=== PATIENT | male | born 1955 | race Caucasian/White ===

== ENCOUNTER → 2023-04-21 14:32 | Outpatient (REF) | payer MEDICARE, SELFPAY | LOC: RAD 14:32 | PROVIDERS: ATTENDING PHYSICIAN Internal Medicine Cardiovascular Disease; FAMILY PHYSICIAN Internal Medicine Endocrinology, Diabetes & Metabolism; REFERRING PHYSICIAN Surgery Vascular Surgery | DX: I73.9 Peripheral vascular disease, unspecified (principal); I48.21 Permanent atrial fibrillation | CPT/HCPCS: 93922; 93925 ==

== ENCOUNTER 2023-07-06 06:05 | Day surgery (SDC) | payer MEDICARE, SELFPAY ==
[2023-07-06 07:00] VITALS: BMI 45.8
[2023-07-06 07:29] LABS: Glucose - Point of Care 117 mg/dl (70-99)
[2023-07-06 07:30] VITALS: BP 143/97
[2023-07-06 08:30] VITALS: BP 116/83
[2023-07-06 08:45] VITALS: BP 95/62
[2023-07-06 09:03] VITALS: BP 145/97
[2023-07-06 09:15] LABS: Hematocrit 43.2 % (39.0-52.0); Hemoglobin 14.8 g/dL (13.0-18.0); Mean Corp Hgb Conc. 34.3 g/dL (33.0-37.0); Mean Corpuscular Hgb 28.5 pg (27.0-31.0); Mean Corpuscular Volume 83.1 fL (80.0-94.0); Mean Platelet Volume 10.1 fL (7.4-10.4); Platelet Count 203 10^3/uL (130-400); Red Cell Dist. Width 14.7 % (11.5-14.5); White Blood Cell Count 6.7 10^3/uL (4.8-10.8)
[2023-07-06 10:08] LABS: ALT (SGPT) 23 U/L (0-50); AST (SGOT) 29 U/L (17-59); Albumin 3.7 g/dl (3.5-5.0); Alkaline Phosphatase 104 U/L (38-126); Blood Urea Nitrogen 21 mg/dl (9-20); Calcium 9.5 mg/dl (8.4-10.2); Carbon Dioxide 27 mmol/L (22-30); Chloride 101 mmol/L (98-107); Estimated Creatinine Clearance > 125 ml/min; Glucose 94 mg/dl (70-99); Potassium 3.3 mmol/L (3.5-5.1); Sodium 134 mmol/L (135-145); Total Bilirubin 1.3 mg/dl (0.2-1.3); Total Protein 6.4 g/dl (6.3-8.2); eGFR > 60.00
[2023-07-06 10:28] LABS: CEA 1.09 ng/ml
== END 2023-07-06 09:20 | disposition home or self-care (01) ==
LOC: GI 06:05
PROVIDERS: ATTENDING PHYSICIAN Internal Medicine
DX: Z12.11 Encounter for screening for malignant neoplasm of colon (principal); Z87.19 Personal history of other diseases of the digestive system; D50.9 Iron deficiency anemia, unspecified; K57.30 Diverticulosis of large intestine without perforation or abscess without bleeding
CPT/HCPCS: 45385; 45380; 88305; 80053; 82378; 82962; 85027; 88342

== ENCOUNTER → 2023-07-11 09:33 | Outpatient (REF) | payer MEDICARE, SELFPAY | LOC: HWRAD 09:33 | PROVIDERS: ATTENDING PHYSICIAN Internal Medicine | DX: K63.89 Other specified diseases of intestine (principal) | CPT/HCPCS: 71260; 74177; Q9967 ==

== ENCOUNTER 2023-07-27 06:05 | Inpatient (IN) | payer MEDICARE, SELFPAY ==
[2023-07-22 12:00] VITALS: BP 111/57
[2023-07-25 08:33] VITALS: BMI 45.9
[2023-07-25 10:03] LABS: Hematocrit 46.5 % (39.0-52.0); Hemoglobin 15.4 g/dL (13.0-18.0); Mean Corp Hgb Conc. 33.1 g/dL (33.0-37.0); Mean Corpuscular Hgb 28.3 pg (27.0-31.0); Mean Corpuscular Volume 85.3 fL (80.0-94.0); Mean Platelet Volume 10.5 fL (7.4-10.4); Platelet Count 265 10^3/uL (130-400); Red Blood Cell Count 5.45 10^6/uL (4.70-6.10); Red Cell Dist. Width 15.6 % (11.5-14.5)
[2023-07-25 10:27] LABS: ALT (SGPT) 19 U/L (0-50); AST (SGOT) 25 U/L (17-59); Albumin 3.9 g/dl (3.5-5.0); Alkaline Phosphatase 102 U/L (38-126); Blood Urea Nitrogen 18 mg/dl (9-20); Calcium 9.9 mg/dl (8.4-10.2); Carbon Dioxide 32 mmol/L (22-30); Chloride 101 mmol/L (98-107); Estimated Creatinine Clearance > 125 ml/min; Glucose 88 mg/dl (70-99); Potassium 4.2 mmol/L (3.5-5.1); Sodium 142 mmol/L (135-145); Total Protein 6.8 g/dl (6.3-8.2); eGFR > 60.00
[2023-07-25 10:40] LABS: INR 1.09; PT 13.9 Sec (11.4-14.6)
[2023-07-25 10:41] LABS: APTT 32.9 Sec (23.4-35.0)
[2023-07-25 10:57] LABS: CEA 1.52 ng/ml
[2023-07-25 12:11] LABS: Glycohemoglobin (HgbA1c) 7.3 % (4.0-5.6)
--- NOTE | 2023-07-25 13:50 | PTCARENOTE ---
HGA1C 7.3, Kayla at MD Office made aware.
[2023-07-27] VITALS (16 sets, daily range): BP systolic 133–164; BP diastolic 73–95; BMI 45.9
[2023-07-27 06:49] LABS: Glucose - Point of Care 106 mg/dl (70-99)
[2023-07-27] MEDS: TYLENOL 1000 MG PO (06:55)
[2023-07-27] MEDS: ENTEREG 12 MG PO (06:56)
[2023-07-27] MEDS: NEURONTIN 300 MG PO ×2 (06:57→19:55)
[2023-07-27] MEDS: HEPARIN 5000 UNITS SC (06:59)
[2023-07-27] MEDS: NORMOSOL-R 1000 IV ×2 (06:59→15:41)
[2023-07-27 09:35] LABS: Glucose - Point of Care 152 mg/dl (70-99)
[2023-07-27 11:33] LABS: Glucose - Point of Care 208 mg/dl (70-99)
--- NOTE | 2023-07-27 12:41 | W.IMMPOSTOP ---
Addendum entered and electronically signed by Orlando Mosley MD 07/27/23 15:46:
Of note, there was small volume spillage of feces from a small colotomy in cecum during dissection of cecum off right abdominal wall. For this reason, as well as his DM, will continue Invanz a couple days postop.
Addendum entered and electronically signed by Orlando Mosley MD 07/27/23 12:51:
Updated Ezio patient's son via phone conversation.
Original Note:
Surgical Immed Post Op Note
-
Primary Surgeon: Susan Mosley MD
Assisting Surgeon: KOLTON Bee; KOLTON N[place]
Pre-op Diagnosis: cecal cancer
Post-op Diagnosis: same
Procedure Performed: 1) robotic right colectomy 2) extensive lysis of adhesions 3) primary umbilical hernia repair
Anesthesia Type: general plus local
Specimen / Cultures: right colectomy
Estimated Blood Loss: 100 cc
Complications: no immediate
Operative Findings: 1) significant lower abdominal adhesions 2) cecal mass 3) no obvious metastases
Gomez in bladder.
Will send to med surg and consult hospitalist for medical management.
[2023-07-27 12:55] LABS: Glucose - Point of Care 174 mg/dl (70-99)
[2023-07-27 13:40] LABS: % Basophils 0.2 % (0-2); % Immature Granulocytes 0.5 % (0-0.5); % Lymphocytes 6.4 % (20.5-51.1); % Monocytes 2.4 % (1.7-9.3); % Neutrophils 90.5 % (42.2-75.2); Absolute Immature Granulocytes 0.1 10^3/uL (0-0.05); Absolute Lymphocytes 0.9 10^3/uL (1.2-3.4); Absolute Monocytes 0.3 10^3/uL (0.1-0.6); Absolute Neutrophils 12.9 10^3/uL (1.4-6.5); Hematocrit 42.3 % (39.0-52.0); Hemoglobin 14.5 g/dL (13.0-18.0); Mean Corp Hgb Conc. 34.3 g/dL (33.0-37.0); Mean Corpuscular Hgb 28.5 pg (27.0-31.0); Mean Corpuscular Volume 83.1 fL (80.0-94.0); Mean Platelet Volume 9.7 fL (7.4-10.4); Nucleated Red Blood Cells % 0 % (-); Platelet Count 238 10^3/uL (130-400); Red Blood Cell Count 5.09 10^6/uL (4.70-6.10); Red Cell Dist. Width 15.6 % (11.5-14.5); White Blood Cell Count 14.3 10^3/uL (4.8-10.8)
--- NOTE | 2023-07-27 14:25 | CON.HOSP ---
Family Physician
-
Family Physician: Herb Gold MD
Chief Complaint
-
s/p robotic surgery for cecal cancer
History of Present Illness
Mr. Mat Ferrell is a 67 yo man with hx HTN, anxiety, HLD, afib s/p Watchman procedure, GLORIA on CPAP, with recently diagnosed cecal cancer now s/p robotic right colectomy this morning. We are asked to consult for medical management of chronic
medical conditions.
Medical History
Past Medical History
Past Medical History: Reports Other ( HTN, anxiety, HLD, afib s/p Watchman procedure, GLORIA on CPAP)
Past Surgical History: Reports Other (watchman procedure; robotic right colectomy 07/27/23)
Family History
Family History: Reviewed & Not Pertinent
Allergies / Home Medications
Allergies reflects when Allergies were last updated in [facility].
Home Medications with original date entered in [facility]
Allergy/Medication List:
Allergies
Allergy/AdvReac Type Severity Reaction Status Date / Time
rivaroxaban [From Xarelto] Allergy bleeding Verified 07/27/23 06:36
Home Medications
hydralazine 50 mg tablet 50 mg PO BID 03/24/17
tadalafil 20 mg tablet (Cialis) 5 mg PO PRN PRN . 03/24/17
Men's 50 Plus Multivitamin 1 tab PO DAILY 07/06/23
alcaftadine 0.25 % eye drops (Lastacaft Once Daily Relief) 1 drp ophthalmic (eye) DAILY 07/06/23
alprazolam 1 mg tablet (Xanax) 2 mg PO BID 07/06/23
aspirin 81 mg chewable tablet 81 mg PO DAILY 07/06/23
atorvastatin 40 mg tablet (Lipitor) 40 mg PO DAILY 07/06/23
escitalopram oxalate 10 mg tablet (Lexapro) 10 mg PO DAILY 07/06/23
gabapentin 300 mg tablet 300 mg PO BID 07/06/23
pantoprazole 40 mg tablet,delayed release (Protonix) 40 mg PO DAILY 07/06/23
semaglutide 0.25 mg or 0.5 mg (2 mg/3 mL) subcutaneous pen injector (Ozempic) 0.5 mg SC QWEEK 07/06/23
valsartan 320 mg tablet (Diovan) 320 mg PO DAILY 07/06/23
amlodipine 5 mg tablet 5 mg PO DAILY 07/24/23
carvedilol 25 mg tablet 25 mg PO BID 07/24/23
cetirizine 10 mg tablet (Zyrtec) 10 mg PO DAILY 07/24/23
cholecalciferol (vitamin D3) 25 mcg (1,000 unit) tablet (Vitamin D3) 25 mcg PO DAILY 07/24/23
insulin lispro 100 unit/mL subcutaneous cartridge (Humalog U-100 Insulin) 1 sliding scale dose SC DIRECTED 07/24/23
levothyroxine 137 mcg tablet 137 mcg PO DAILY 07/24/23
metronidazole 500 mg tablet 500 mg PO .PER MD PREOP INST 07/24/23
neomycin 500 mg tablet 1 g PO .PER MD PREOP INST 07/24/23
sodium sul 1.479 gram-potas ch 0.188 gram-magnes sul 0.225 gram tablet (Sutab) 1 tab PO .PER MD PREOP INST 07/24/23
vitamin B complex 1 tab PO DAILY 07/24/23
Review of Systems
-
History Source: Patient
A 12 point Review of Systems was completed except as noted: Yes
Physical Exam
Vital Signs
Vital Signs
Temp Pulse Resp BP Pulse Ox
100.1 F 88 17 134/73 97
07/27/23 12:42 07/27/23 13:30 07/27/23 13:30 07/27/23 13:15 07/27/23 13:30
Laboratory Results
-
Laboratory Results
07/27/23 13:33
PT 13.9 Sec (11.4-14.6) 07/25/23 08:29
INR 1.09 07/25/23 08:29
APTT 32.9 Sec (23.4-35.0) 07/25/23 08:
Total Bilirubin 1.0 mg/dl (0.2-1.3) 07/25/23 08:29
AST 25 U/L (17-59) 07/25/23 08:
ALT 19 U/L (0-50) 07/25/23 08:
Alkaline Phosphatase 102 U/L (38-126) 07/25/23 08:29
Data Reviewed
-
Diagnostic Radiology: Report Reviewed by Me
Lab Data: Labs Reviewed
Impression / Plan
-
Mr. Mat Ferrell is a 67 yo man with hx HTN, anxiety, HLD, afib s/p Watchman procedure, GOLRIA on CPAP, with recently diagnosed cecal cancer now s/p robotic right colectomy this morning. We are asked to consult for medical management of chronic
medical conditions.
Cecal Cancer s/p Robotic Right Colectomy
-admitted to surgery service
-plan per CRS
-NPO, IVF
-standing Toradol and morphine PRN pain
DM type I
-patient has insulin pump with him which he will resume now
-will check BGL and patient to correct with pump
-current BGL 170's
HTN
-home regimen: amlodipine 5mg PO QD; Coreg 25mg PO BID; Hydralazine 50mg PO BID; Valsartan 320mg PO QD
-will resume GROUP MANAGING DIRECTOR Coreg and 1/2 dose Hydralazine for now with hold parameters
-monitor BP and resume other meds slowly
Anxiety
-continue GROUP MANAGING DIRECTOR regimen Lexapro daily, Xanax 2mg q 12 PRN
Hypothyroidism
-GROUP MANAGING DIRECTOR Synthroid
GERD
-on oral protonix at home, continue IV here
Obesity
-patient is on Ozempic weekly at home which he has held for several weeks
DVT PPx SCD
[2023-07-27] MEDS: TORADOL 15 MG IV ×2 (14:37→19:55)
[2023-07-27 14:39] LABS: Chloride 101 mmol/L (98-107)
[2023-07-27 14:41] LABS: Blood Urea Nitrogen 22 mg/dl (9-20); Calcium 8.9 mg/dl (8.4-10.2); Carbon Dioxide 24 mmol/L (22-30); Estimated Creatinine Clearance 113 ml/min; Glucose 201 mg/dl (70-99); Magnesium 1.9 mg/dl (1.6-2.3); Potassium 4.3 mmol/L (3.5-5.1); Sodium 137 mmol/L (135-145); eGFR > 60.00
[2023-07-27] MEDS: TYLENOL PO (16:02)
[2023-07-27] MEDS: TORADOL IV (16:15)
[2023-07-27] MEDS: TYLENOL 650 MG PO ×3 (16:31→23:22)
[2023-07-27 17:13] LABS: Glucose - Point of Care 208 mg/dl (70-99)
[2023-07-27] MEDS: PATIENT'S OWN INSULIN PUMP 2 UNITS SC (18:16)
[2023-07-27] MEDS: APRESOLINE 25 MG PO (19:55)
[2023-07-27] MEDS: COREG 25 MG PO (19:55)
[2023-07-27] MEDS: XANAX 2 MG PO (19:59)
[2023-07-27 21:35] LABS: Glucose - Point of Care 166 mg/dl (70-99)
[2023-07-27] MEDS: PATIENT'S OWN INSULIN PUMP SC (23:23)
[2023-07-28] VITALS (7 sets, daily range): BP systolic 111–146; BP diastolic 57–85; PULSE 75; O2SAT 96
[2023-07-28] MEDS: NORMOSOL-R 1000 IV ×2 (01:06→10:13)
[2023-07-28] MEDS: TORADOL 15 MG IV ×4 (01:06→20:54)
[2023-07-28] MEDS: SYNTHROID 137 MCG PO (05:30)
[2023-07-28] MEDS: TYLENOL 650 MG PO ×5 (05:30→20:54)
[2023-07-28 05:37] LABS: % Basophils 0.2 % (0-2); % Immature Granulocytes 0.3 % (0-0.5); % Lymphocytes 6.4 % (20.5-51.1); % Monocytes 9.8 % (1.7-9.3); % Neutrophils 83.3 % (42.2-75.2); Absolute Lymphocytes 0.8 10^3/uL (1.2-3.4); Absolute Monocytes 1.2 10^3/uL (0.1-0.6); Absolute Neutrophils 10.1 10^3/uL (1.4-6.5); Hematocrit 40.3 % (39.0-52.0); Hemoglobin 14.3 g/dL (13.0-18.0); Mean Corp Hgb Conc. 35.5 g/dL (33.0-37.0); Mean Corpuscular Hgb 29.1 pg (27.0-31.0); Mean Corpuscular Volume 81.9 fL (80.0-94.0); Nucleated Red Blood Cells % 0 % (-); Platelet Count 224 10^3/uL (130-400); Red Blood Cell Count 4.92 10^6/uL (4.70-6.10); Red Cell Dist. Width 15.3 % (11.5-14.5); White Blood Cell Count 12.2 10^3/uL (4.8-10.8)
[2023-07-28 06:02] LABS: Blood Urea Nitrogen 26 mg/dl (9-20); Carbon Dioxide 25 mmol/L (22-30); Chloride 103 mmol/L (98-107); Estimated Creatinine Clearance > 125 ml/min; Glucose 158 mg/dl (70-99); Magnesium 2.2 mg/dl (1.6-2.3); Potassium 4.4 mmol/L (3.5-5.1); Sodium 136 mmol/L (135-145); eGFR > 60.00
[2023-07-28 06:44] LABS: Hepatitis C Antibody Negative (Negative)
[2023-07-28] MEDS: PATIENT'S OWN INSULIN PUMP SC ×2 (07:45→17:34)
[2023-07-28 07:52] LABS: Glucose - Point of Care 152 mg/dl (70-99)
--- NOTE | 2023-07-28 08:12 | PN.DE.MGMTRT ---
Insulin Management
- -
07/28/2023: Diabetes Management Consult:
67 year old male with PMH: HTN, Anxiety, HLD, A-Fib s/p Watchman procedure, GLORIA on CPAP, T1DM, recently dx with cecal cancer.
Pt is POD #1 s/p 1) robotic right colectomy for cecal cancer, 2) extensive lysis of adhesions, 3) primary umbilical hernia repair.
We are asked to consult for management of insulin pump. Pt Routinely sees Endo Dr. Herb Gold for diabetes management. He uses Omnipod with Dexcom G6 CGM, Humalog insulin and Ozempic 0.5mg every Monday. States GLP1 was started on 05/28/2023 for
weight loss mgt in order for him to lose weight and have knee replacement surgery. He has lost ~10lbs since starting it but had to hold it on 07/15 in prep for this colorectal surgery.
Current A1C 7.3%, Cr 0.6, eGFR>60. His Pod is set in Automated mood, he uses a correction factor of 1:15 with a target of 120. 24hr Total basal is 60 units
Pt awake, A/O x3, sitting up in bed, offers no complaints, able to discuss diabetes management
He states that his sugars have been up and down and that he would like to see then in the 150s range.
His recent POC glucose was 158 fasting. He states that he does not uses carb rations and just comes up with how much insulin to adm at meal times based on what meal he is having. So for a blood sugar of 150s, he would not administer any bolus at
home because he is afraid of his sugar dropping. His diet has been advanced to clears and is in the process of ordering breakfast.
Will make no changes to current insulin pump settings.
Discussed w/pt process of documenting all his insulin boluses at meal times on the pump worksheet.
Pod is due to be changed tomorrow and CGM on monday.
Diabetes History
- -
Type of Diabetes: 1
Pre-Admission Diabetes Regimen
07/27/23 07/27/23 07/28/23
13:33 14:06 05:17
Creatinine Cancelled 0.9 0.6 L
Lab Results
Hemoglobin A1c 7.3 % (4.0-5.6) H 07/25/23 08:29
Insulin Pump Settings
IP Diabetes Regimen
07/27/23 07/27/23 07/27/23
09:33 11:32 12:53
Glucose
POC Glucose 152 H 208 H 174 H
07/27/23 07/27/23 07/27/23
13:33 14:06 17:11
Glucose Cancelled 201 H
POC Glucose 208 H
07/27/23 07/28/23 07/28/23
21:34 05:17 07:51
Glucose 158 H
POC Glucose 166 H 152 H
Patient Education
[2023-07-28] MEDS: PROTONIX IV 40 MG IV (08:57)
[2023-07-28] MEDS: NSS (PRESERVATIVE FREE) 10 ML IV (08:57)
[2023-07-28] MEDS: APRESOLINE 25 MG PO ×2 (08:57→20:53)
[2023-07-28] MEDS: THERAGRAN 1 TABLET PO (09:00)
[2023-07-28] MEDS: NEURONTIN 300 MG PO ×2 (09:00→21:05)
[2023-07-28] MEDS: LOW STRENGTH ASPIRIN 81 MG PO (09:00)
[2023-07-28] MEDS: ZYRTEC 10 MG PO (09:00)
[2023-07-28] MEDS: ENTEREG 12 MG PO ×2 (09:00→21:04)
[2023-07-28] MEDS: LEXAPRO 10 MG PO (09:00)
[2023-07-28] MEDS: INVANZ 60 MG IV (09:00)
[2023-07-28] MEDS: LIPITOR 40 MG PO (09:00)
[2023-07-28] MEDS: COREG 25 MG PO ×2 (09:02→20:52)
[2023-07-28] MEDS: XANAX 2 MG PO ×2 (09:09→20:55)
--- NOTE | 2023-07-28 09:18 | W.PN.HOSP.TC ---
Today's Communication/Plan
-
see plan
Assessment / Plan
Assessment / Plan
Mr. Mat Ferrell is a 67 yo man with hx HTN, anxiety, HLD, afib s/p Watchman procedure, GLORIA on CPAP, with recently diagnosed cecal cancer now s/p robotic right colectomy this morning. We are asked to consult for medical management of HTN and
DM1.
Cecal Cancer s/p Robotic Right Colectomy
-admitted to surgery service
-plan per CRS
-advancign to clears
-standing Toradol and morphine PRN pain
DM type I
-patient has resumed own insulin pump which he is managing
-will check BGL and patient to correct with pump
HTN
-home regimen: amlodipine 5mg PO QD; Coreg 25mg PO BID; Hydralazine 50mg PO BID; Valsartan 320mg PO QD
-will resume GLOVE PAIRER Coreg and 1/2 dose Hydralazine for now with hold parameters
-monitor BP and resume other meds slowly - likely resume more this afternoon
Anxiety
-continue GLOVE PAIRER regimen Lexapro daily, Xanax 2mg q 12 PRN
Hypothyroidism
-GLOVE PAIRER Synthroid
GERD
-on oral protonix at home, continue IV here
Obesity
-patient is on Ozempic weekly at home which he has held for several weeks
DVT PPx SCD
Anticipated Discharge: 24 - 48 hours
Subjective/Interval History
-
Date of Service: July 28, 2023
feeling well this morning
pain controlled
Objective Data
-
Labs:
Laboratory Results
07/28/23
05:17
WBC 12.2 H
Hgb 14.3
Hct 40.3
Plt Count 224
Sodium 136
Potassium 4.4
Chloride 103
Carbon Dioxide 25
BUN 26 H
Creatinine 0.6 L
Glucose 158 H
Calcium 9.0
Vital Signs:
Vital Signs
Temp Pulse Resp BP Pulse Ox
97.4 F 78 18 120/76 96
07/28/23 07:39 07/28/23 09:02 07/28/23 07:39 07/28/23 09:02 07/28/23 07:39
I&O
07/27/23 07/28/23 07/29/23
06:59 06:59 06:59
Intake Total 1400 / 1400
Output Total 1275 / 1275
Balance 125 / 125
Review of Systems
-
History Source: Patient
All other systems: Reviewed and negative
Physical Exam
-
General: Obese
HEENT: PERRLA
Respiratory: Clear to Auscultation; Negative Wheezes
Cardiac: Regular Rhythm and S1/S2
GI: Other (incisions c/d/i)
Musculoskeletal: No Edema
Skin: Warm and Dry; Negative Rash
Neuro: AO x 3
Psych: Calm
Data Reviewed
-
Diagnostic Radiology: Report Reviewed by me
Labs: Labs Reviewed by me
[2023-07-28 09:38] LABS: Glycohemoglobin (HgbA1c) 7.4 % (4.0-5.6)
--- NOTE | 2023-07-28 09:51 | W.PN.CRS1 ---
Addendum entered and electronically signed by Orlando Mosley MD 07/28/23 16:45:
Also of note,
Small colotomy in cecum is unexpected but is NOT a complication of the surgery. It occurred due to dense adhesions likely related to history of perforated appendicitis as a youth. There was no evidence for perotinitis.
Original Note:
Today's Communication / Plan
-
clears
lovenox
d/c thomson
continue invanz
Assessment/Plan
-
POD#1 1) robotic right colectomy 2) extensive lysis of adhesions 3) primary umbilical hernia repair
1. Vitals and labs normal.
2. TEDs/SCDS, add lovenox for DVT prophylaxis.
3. OOB with PT.
4. Pain control: Tylenol/Toradol standing, Morphine PRN.
5. OR pathology pending.
6. Discontinue thomson.
7. Continue Invanz through Monday, 07/29 given some OR 'spillage'.
8. Advance diet to clears. D/C IVFs when tolerating po.
9. Appreciate hospitalist.
Subjective Data
Procedure
07/27/2023- 1) robotic right colectomy 2) extensive lysis of adhesions 3) primary umbilical hernia repair
Subjective Data
Date of Service: July 28, 2023
Patient states he has some gas pains but no flatus yet. He has no nausea or vomiting. His pain is controlled. He is very hungry.
Objective Data
-
Vital Signs
Temp Pulse Resp BP Pulse Ox
97.4 F 78 18 120/76 96
07/28/23 07:39 07/28/23 09:02 07/28/23 07:39 07/28/23 09:02 07/28/23 07:39
Intake & Output
07/27/23 07/28/23 07/29/23
06:59 06:59 06:59
Intake Total 1400 / 1400
Output Total 1275 / 1275
Balance 125 / 125
Intake:
IV fluids (Total) 1400 / 1400
normosol 200 / 200
Output:
Urine, Thomson 625 / 625
Urine, Voided 650 / 650
Lab Results
07/28/23 05:17
07/28/23 05:17
Physical Exam
-
General: No Acute Distress and AOx3
Abdomen: Soft, Non Distended and Non Tender
Skin: Warm and Dry
Incision: Clear, Dry, Intact
--- NOTE | 2023-07-28 10:37 | PN.CDI ---
CDI
- -
CDI:
Physician Documentation Request
Admit Date: 07/27/23 06:05
Dear Doctor Dimitri,
Please review the following and provide your response in the progress notes.
Clinical Indicators:
Surgical Immediate Post Op, 07/26
#Of note, there was small volume spillage of feces from a
#...small colotomy in cecum during dissection of cecum off right abdominal wall.
#For this reason, as well as his DM, will continue Invanz a couple days postop.
#Procedure Performed: 1) robotic right colectomy 2) extensive lysis of adhesions
#...3) primary umbilical hernia repair
Please clarify the following:
Small colotomy in cecum is a complication of the surgery
Small colotomy in cecum is unexpected but is NOT a complication of the surgery
Small colotomy is an expected occurrence and is not a complication of surgery
Small colotomy in cecum is inherent to/unavoidable during the surgery and is not a complication
Other(please specify)
Use of terms such as suspected, likely, concern for, or probable (associated with a specific diagnosis that is being evaluated, monitored, or treated as if it exists) are acceptable and can be coded in the inpatient setting, when documented at the
time of discharge.
Thank you,
Mariel Jordan RN BSN CCDS
CDI Specialist
please contact via tiger text
Please use your independent medical judgment in providing your response.
--- NOTE | 2023-07-28 10:41 | PN.CDI ---
CDI
- -
CDI:
Physician Documentation Request
Admit Date: 07/27/23 06:05
Dear Doctor Dimitri,
Please review the following and provide your response in the progress notes.
Clinical Indicators:
Documentation in the medical record includes administration of Invanz.
Surgical Immediate Post Op, 07/26
#Of note, there was small volume spillage of feces from a
#...small colotomy in cecum during dissection of cecum off right abdominal wall.
#For this reason, as well as his DM, will continue Invanz a couple days postop.
#Procedure Performed: 1) robotic right colectomy 2) extensive lysis of adhesions
#...3) primary umbilical hernia repair
PN, 07/27
#continue invanz
#7. Continue Invanz through Monday, 07/29 given some OR 'spillage'.
Laboratory Tests
07/27/23 07/28/23
13:33 05:17
WBC 14.3 H 12.2 H
Based on the above and your clinical assessment, please clarify in the progress notes, the appropriate diagnosis, if significant, that supports the above abnormalities and additional evaluation, monitoring and/or treatment rendered:
Peritonitis
Other(please clarify)
Use of terms such as suspected, likely, concern for, or probable (associated with a specific diagnosis that is being evaluated, monitored, or treated as if it exists) are acceptable and can be coded in the inpatient setting, when documented at the
time of discharge.
Thank you,
Mariel Jordan MANAGER RESEARCH DEVELOPMENT CCDS
CDI Specialist
please contact via tiger text
Please use your independent medical judgment in providing your response.
--- NOTE | 2023-07-28 10:47 | CM ---
Reviewed the chart notes and spoke with the patient at the bedside. The patient resides alone in a first floor apartment with one small step to enter. The patient reports on DME is a CPAP. The patient reports no VN or SNF in the past. The
patient confirmed her pharmacy of choice is the [facility] [address] [facility]. CM continues to be available to patient/family and is monitoring medical plan for needs at discharge.
Plan: Discharge to home when medically stable. Anticipates on needs.
--- NOTE | 2023-07-28 11:47 | RESPNOTE ---
Cpap ordered for patient- No machine bedside patient informed that Dr Mosley told him not to use while here at the hospital. Reached out to Chiquita Kwan who confirmed patient is not to wear 'due to air going into the stomach and potential
vomiting.' Ale [facility] aware
[2023-07-28 12:39] LABS: Glucose - Point of Care 206 mg/dl (70-99)
[2023-07-28] MEDS: PATIENT'S OWN INSULIN PUMP 3.5 UNITS SC (12:39)
[2023-07-28] MEDS: FLUSH (NSS) 2 FLUSH IV (14:44)
[2023-07-28 15:58] LABS: Glucose - Point of Care 163 mg/dl (70-99)
[2023-07-28] MEDS: PT'S OWN INSULIN PUMP - HumaLOG 3.5 UNIT SC (17:13)
[2023-07-28] MEDS: NORMOSOL-R IV (17:28)
[2023-07-28] MEDS: LOVENOX 40 MG SC (17:52)
[2023-07-28 21:25] LABS: Glucose - Point of Care 106 mg/dl (70-99)
[2023-07-28] MEDS: PT'S OWN INSULIN PUMP - HumaLOG SC (21:51)
[2023-07-29] MEDS: TYLENOL PO ×2 (00:45→05:17)
[2023-07-29] MEDS: TORADOL 15 MG IV ×4 (02:35→20:31)
[2023-07-29] MEDS: NORMOSOL-R IV (04:05)
[2023-07-29 06:00] VITALS: BMI 45.5
[2023-07-29] MEDS: SYNTHROID 137 MCG PO (06:13)
[2023-07-29 07:00] VITALS: BP 137/97
[2023-07-29] MEDS: INVANZ 60 MG IV (08:06)
[2023-07-29] MEDS: NSS (PRESERVATIVE FREE) 10 ML IV (08:07)
[2023-07-29] MEDS: PROTONIX IV 40 MG IV (08:07)
[2023-07-29] MEDS: APRESOLINE 25 MG PO ×2 (08:09→20:33)
[2023-07-29] MEDS: LEXAPRO 10 MG PO (08:10)
[2023-07-29] MEDS: LOW STRENGTH ASPIRIN 81 MG PO (08:10)
[2023-07-29] MEDS: THERAGRAN 1 TABLET PO (08:10)
[2023-07-29] MEDS: COREG 25 MG PO ×2 (08:10→20:38)
[2023-07-29] MEDS: ENTEREG 12 MG PO ×2 (08:10→20:32)
[2023-07-29] MEDS: NEURONTIN 300 MG PO ×2 (08:10→20:32)
[2023-07-29] MEDS: LIPITOR 40 MG PO (08:10)
[2023-07-29] MEDS: ZYRTEC 10 MG PO (08:11)
[2023-07-29] MEDS: TYLENOL 650 MG PO ×4 (08:11→20:31)
[2023-07-29] MEDS: PT'S OWN INSULIN PUMP - HumaLOG 3.5 UNIT SC (08:15)
[2023-07-29 08:16] LABS: Glucose - Point of Care 138 mg/dl (70-99)
[2023-07-29] MEDS: PT'S OWN INSULIN PUMP - HumaLOG SC ×2 (08:20→22:08)
[2023-07-29] MEDS: XANAX 2 MG PO ×2 (08:55→20:38)
--- NOTE | 2023-07-29 09:43 | W.PN.GS2 ---
Today's Communication / Plan
-
Advance diet
Assessment / Plan
-
67 yo male with h/o IDDM and cecal cancer now POD #2 robotic right colectomy with WALLY and primary UHR
AFVSS
Passing flatus
Good pain control
--Advance to full liquids
--ADAT to ADA/LRD later today
--OOB/Ambulate
--Multimodal analgesics. Added prn oral options
--Continue patient's own insulin pump
--D/C IVF
--IV abx with Invanz through 07/29 given some spillage in OR
--Hospitalist following with us
Subjective Data
-
Date of Service: July 29, 2023
Patient seen and examined at bedside. OOB to chair. Reports pain well managed. Passing flatus, no stool as of yet. Tolerating liquids. Voiding without difficulty.
Objective Data
-
Intake and Output
07/28/23 07/29/23 07/30/23
06:59 06:59 06:59
Intake Total 1400 / 1400
Output Total 1275 / 1275 350 / 350
Balance 125 / 125 -350 / -350
Intake:
IV fluids (Total) 1400 / 1400
normosol 200 / 200
Output:
Urine, Gomez 625 / 625 350 / 350
Urine, Voided 650 / 650
Other:
Number of approximated MODERATE 2
amounts of urine
Vital Signs
Temp Pulse Resp BP Pulse Ox
98.3 F 90 20 137/97 96
07/29/23 07:00 07/29/23 08:10 07/29/23 07:00 07/29/23 08:10 07/29/23 07:00
Lab Results
07/28/23 05:17
07/28/23 05:17
Calcium 9.0 mg/dl (8.4-10.2) 07/28/23 05:17
Magnesium 2.2 mg/dl (1.6-2.3) 07/28/23 05:17
Total Bilirubin 1.0 mg/dl (0.2-1.3) 07/25/23 08:29
AST 25 U/L (17-59) 07/25/23 08:29
ALT 19 U/L (0-50) 07/25/23 08:29
Alkaline Phosphatase 102 U/L (38-126) 07/25/23 08:29
Total Protein 6.8 g/dl (6.3-8.2) 07/25/23 08:29
Albumin 3.9 g/dl (3.5-5.0) 07/25/23 08:29
Physical Exam
-
NAD
ABD soft, obese, incisional tenderness (mild), ND
Incisions with surrounding ecchymosis, well approximated
--- NOTE | 2023-07-29 10:40 | W.PN.HOSP.TC ---
Today's Communication/Plan
-
see plan
Assessment / Plan
Assessment / Plan
Mr. Mat Ferrell is a 67 yo man with hx HTN, anxiety, HLD, afib s/p Watchman procedure, GLORIA on CPAP, with recently diagnosed cecal cancer now s/p robotic right colectomy this morning. We are asked to consult for medical management of HTN and
DM1.
Cecal Cancer s/p Robotic Right Colectomy
-admitted to surgery service
-plan per CRS
-advancing to fulls then possibly LRD later today
-standing Toradol and morphine PRN pain
DM type I
-patient has resumed own insulin pump which he is managing
-monitor BGL: patient to correct with pump
HTN
-home regimen: amlodipine 5mg PO QD; Coreg 25mg PO BID; Hydralazine 50mg PO BID; Valsartan 320mg PO QD
-continue BEADING INSTALLER Coreg and 1/2 dose Hydralazine for now
-resume BEADING INSTALLER Amlodipine today
Anxiety
-continue BEADING INSTALLER regimen Lexapro daily, Xanax 2mg q 12 PRN
Hypothyroidism
-BEADING INSTALLER Synthroid
GERD
-on oral protonix at home, continue IV here
Obesity
-patient is on Ozempic weekly at home which he has held for several weeks
DVT PPx SCD
Anticipated Discharge: 24 - 48 hours
Subjective/Interval History
-
Date of Service: July 29, 2023
feeling well
had a small BM
Objective Data
-
Vital Signs:
Vital Signs
Temp Pulse Resp BP Pulse Ox
98.3 F 90 20 137/97 96
07/29/23 07:00 07/29/23 08:10 07/29/23 07:00 07/29/23 08:10 07/29/23 07:00
I&O
07/28/23 07/29/23 07/30/23
06:59 06:59 06:59
Intake Total 1400 / 1400
Output Total 1275 / 1275 350 / 350
Balance 125 / 125 -350 / -350
Review of Systems
-
History Source: Patient
All other systems: Reviewed and negative
Physical Exam
-
General: Obese
HEENT: PERRLA
Respiratory: Clear to Auscultation; Negative Wheezes
Cardiac: Regular Rhythm and S1/S2
GI: Other (incisions c/d/i)
Musculoskeletal: No Edema
Skin: Warm and Dry; Negative Rash
Neuro: AO x 3
Psych: Calm
Data Reviewed
-
Diagnostic Radiology: Report Reviewed by me
Labs: Labs Reviewed by me
[2023-07-29] MEDS: NORVASC 5 MG PO (11:25)
[2023-07-29 12:28] LABS: Glucose - Point of Care 175 mg/dl (70-99)
[2023-07-29] MEDS: PT'S OWN INSULIN PUMP - HumaLOG 3 UNIT SC (13:13)
[2023-07-29 15:41] VITALS: BP 132/87
[2023-07-29 16:45] LABS: Glucose - Point of Care 203 mg/dl (70-99)
[2023-07-29] MEDS: LOVENOX 40 MG SC (17:14)
[2023-07-29] MEDS: PT'S OWN INSULIN PUMP - HumaLOG 2.89999999999999991 UNIT SC (17:15)
[2023-07-29] MEDS: REFRESH EYE DROPS (PF) 1 DROPS OPHTH (17:47)
[2023-07-29 22:03] LABS: Glucose - Point of Care 156 mg/dl (70-99)
[2023-07-29 23:28] VITALS: BP 124/94
[2023-07-30] MEDS: TYLENOL PO ×2 (00:33→04:19)
[2023-07-30] MEDS: TORADOL 15 MG IV ×4 (02:30→21:21)
[2023-07-30] MEDS: SYNTHROID 137 MCG PO (05:41)
[2023-07-30 06:00] VITALS: BMI 45.8
[2023-07-30 07:30] VITALS: BP 118/72
--- NOTE | 2023-07-30 08:05 | W.PN.GS2 ---
Addendum entered and electronically signed by Juan Segal MD 07/30/23 11:14:
Patient seen and examined in follow-up with MECHANICAL EQUIPMENT TEST ENGINEER.
He offers no complaints. Tolerating dietary advancement.
Positive flatus and small BM
AFVSS
ABD: Obese, protuberant but not distended. Incision sites clean.
A/P: Dietary advancement, last day of Invanz, probable DC home tomorrow
Original Note:
Today's Communication / Plan
-
Dispo planning
Advance diet
Assessment / Plan
-
67 yo male with h/o IDDM and cecal cancer now POD #3 robotic right colectomy with WALLY and primary UHR
AFVSS
Passing flatus/BM
Good pain control
--Advance to ADA/LRD diet
--OOB/Ambulate
--Multimodal analgesics
--Continue patient's own insulin pump
--IV abx with Invanz through today given some spillage in OR
--Hospitalist following with us
Tentative d/c later today vs monday pending patient progress
Subjective Data
-
Date of Service: July 30, 2023
Patient seen and examined at bedside. OOB to chair. Denies n/v. Tolerating diet thus far. Passing flatus. Small BM this AM.
Objective Data
-
Intake and Output
07/29/23 07/30/23 07/31/23
06:59 06:59 06:59
Intake Total 1919
Output Total 350 / 350
Balance -350 / -350 1919
Intake:
Oral fluids 1919
Output:
Urine, Gomez 350 / 350
Other:
Number of approximated MODERATE 2 3
amounts of urine
Number of approximated LARGE 1
amounts of urine
Vital Signs
Temp Pulse Resp BP Pulse Ox
98.3 F 98 18 118/72 96
07/30/23 07:30 07/30/23 07:30 07/30/23 07:30 07/30/23 07:30 07/30/23 07:30
Lab Results
07/28/23 05:17
07/28/23 05:17
Calcium 9.0 mg/dl (8.4-10.2) 07/28/23 05:17
Magnesium 2.2 mg/dl (1.6-2.3) 07/28/23 05:17
Total Bilirubin 1.0 mg/dl (0.2-1.3) 07/25/23 08:29
AST 25 U/L (17-59) 07/25/23 08:29
ALT 19 U/L (0-50) 07/25/23 08:29
Alkaline Phosphatase 102 U/L (38-126) 07/25/23 08:29
Total Protein 6.8 g/dl (6.3-8.2) 07/25/23 08:29
Albumin 3.9 g/dl (3.5-5.0) 07/25/23 08:29
Physical Exam
-
NAD
ABD soft, obese, incisional tenderness (mild), ND
Incisions with surrounding ecchymosis, well approximated. Resolving hematoma to incision on upper left abd.
[2023-07-30] MEDS: APRESOLINE 25 MG PO (08:22)
[2023-07-30] MEDS: PT'S OWN INSULIN PUMP - HumaLOG 4 UNIT SC (08:22)
[2023-07-30] MEDS: COREG 25 MG PO ×2 (08:23→21:20)
[2023-07-30] MEDS: FLUSH (NSS) 3 FLUSH IV (08:24)
[2023-07-30] MEDS: INVANZ 60 MG IV (08:24)
[2023-07-30] MEDS: ENTEREG 12 MG PO ×2 (08:24→21:22)
[2023-07-30] MEDS: NORVASC 5 MG PO (08:25)
[2023-07-30] MEDS: LOW STRENGTH ASPIRIN 81 MG PO (08:25)
[2023-07-30] MEDS: TYLENOL 650 MG PO ×4 (08:25→21:20)
[2023-07-30] MEDS: LIPITOR 40 MG PO (08:25)
[2023-07-30] MEDS: NEURONTIN 300 MG PO ×2 (08:26→21:20)
[2023-07-30] MEDS: ZYRTEC 10 MG PO (08:26)
[2023-07-30] MEDS: PROTONIX IV 40 MG IV (08:26)
[2023-07-30] MEDS: NSS (PRESERVATIVE FREE) 10 ML IV (08:26)
[2023-07-30] MEDS: THERAGRAN 1 TABLET PO (08:26)
[2023-07-30] MEDS: LEXAPRO 10 MG PO (08:26)
[2023-07-30 08:30] LABS: Glucose - Point of Care 153 mg/dl (70-99)
[2023-07-30] MEDS: REFRESH EYE DROPS (PF) 1 DROPS OPHTH (08:30)
[2023-07-30] MEDS: XANAX 2 MG PO ×2 (08:38→21:39)
--- NOTE | 2023-07-30 10:58 | W.PN.HOSP.TC ---
Today's Communication/Plan
-
see plan
-* I printed LRD info and gave to patient as he had questions. He also is requesting VN which I ordered
Assessment / Plan
Assessment / Plan
Mr. Mat eFrrell is a 67 yo man with hx HTN, anxiety, HLD, afib s/p Watchman procedure, GLORIA on CPAP, with recently diagnosed cecal cancer now s/p robotic right colectomy this morning. We are asked to consult for medical management of HTN and
DM1.
Cecal Cancer s/p Robotic Right Colectomy
-admitted to surgery service
-plan per CRS
-tolerating LRD
-pain control
-possible DC later today
DM type I
-patient has resumed own insulin pump which he is managing
-monitor BGL: patient to correct with pump
HTN
-home regimen: amlodipine 5mg PO QD; Coreg 25mg PO BID; Hydralazine 50mg PO BID; Valsartan 320mg PO QD
-continue CONTACT LENS MOLDER Coreg, Amlodipine; resume full dose Hydralazine
-if discharged today, patient can resume entire home regimen when leaves (take Valsartan starting tomorrow)
-I encouraged patient to get a blood pressure monitor at home
Anxiety
-continue CONTACT LENS MOLDER regimen Lexapro daily, Xanax 2mg q 12 PRN
Hypothyroidism
-CONTACT LENS MOLDER Synthroid
GERD
-on oral protonix at home, continue IV here
Obesity
-patient is on Ozempic weekly at home which he has held for several weeks
DVT PPx SCD
Anticipated Discharge: Within 24 hours
Subjective/Interval History
-
Date of Service: July 30, 2023
feeling well
questions about LRD
Objective Data
-
Vital Signs:
Vital Signs
Temp Pulse Resp BP Pulse Ox
98.3 F 98 18 118/72 96
07/30/23 07:30 07/30/23 08:25 07/30/23 07:30 07/30/23 08:25 07/30/23 08:30
I&O
07/29/23 07/30/23 07/31/23
06:59 06:59 06:59
Intake Total 1919
Output Total 350 / 350
Balance -350 / -350 1919
Review of Systems
-
History Source: Patient
All other systems: Reviewed and negative
Physical Exam
-
General: Obese
HEENT: PERRLA
Respiratory: Clear to Auscultation; Negative Wheezes
Cardiac: Regular Rhythm and S1/S2
GI: Other (incisions c/d/i)
Musculoskeletal: No Edema
Skin: Warm and Dry; Negative Rash
Neuro: AO x 3
Psych: Calm
Data Reviewed
-
Diagnostic Radiology: Report Reviewed by me
Labs: Labs Reviewed by me
[2023-07-30 11:49] LABS: Glucose - Point of Care 132 mg/dl (70-99)
--- NOTE | 2023-07-30 11:56 | CM ---
Addendum entered by Ester Ceron 07/30/23 14:29:
To add, this pt resides at [address] [place] [address] in [place] as listed on face sheet, but in [address].
Original Note:
CM met with pt at bedside.
Pt requesting VN follow up. Limited mobility and would like to have follow up re: BP check and medication review. Pt is on an insulin pump he manages himself. Pt also would like teaching and resources on identifying, obtaining, and cooking
appropriate foods to be sure to follow the low fiber diet. Due to his 'bad knees and back' he can not stand long in the kitchen to cook.
CM offered choice of home care agency. Preference is for [place]. CM to send referral now via [facility] to [facility].
[2023-07-30] MEDS: PT'S OWN INSULIN PUMP - HumaLOG SC (12:15)
[2023-07-30] MEDS: FLUSH (NSS) 2 FLUSH IV (13:58)
[2023-07-30 15:20] VITALS: BP 127/77
[2023-07-30] MEDS: LOVENOX 40 MG SC ×2 (17:13→17:14)
[2023-07-30] MEDS: PT'S OWN INSULIN PUMP - HumaLOG 3.85000000000000009 UNIT SC (17:15)
[2023-07-30 17:18] LABS: Glucose - Point of Care 205 mg/dl (70-99)
[2023-07-30] MEDS: APRESOLINE 50 MG PO (21:21)
[2023-07-30 21:44] LABS: Glucose - Point of Care 216 mg/dl (70-99)
[2023-07-30] MEDS: PT'S OWN INSULIN PUMP - HumaLOG 4.95000000000000018 UNIT SC (21:44)
[2023-07-30 23:06] VITALS: BP 144/85
[2023-07-31] MEDS: TYLENOL PO ×2 (00:12→04:20)
[2023-07-31] MEDS: TORADOL 15 MG IV ×3 (03:00→13:02)
[2023-07-31] MEDS: SYNTHROID 137 MCG PO (05:09)
[2023-07-31 05:20] VITALS: BMI 46.1
[2023-07-31 05:20] LABS: Hematocrit 37.7 % (39.0-52.0); Hemoglobin 12.7 g/dL (13.0-18.0); Mean Corp Hgb Conc. 33.7 g/dL (33.0-37.0); Mean Corpuscular Hgb 28.6 pg (27.0-31.0); Mean Corpuscular Volume 84.9 fL (80.0-94.0); Mean Platelet Volume 10.3 fL (7.4-10.4); Platelet Count 194 10^3/uL (130-400); Red Blood Cell Count 4.44 10^6/uL (4.70-6.10); Red Cell Dist. Width 15.4 % (11.5-14.5); White Blood Cell Count 6.9 10^3/uL (4.8-10.8)
[2023-07-31] MEDS: REFRESH EYE DROPS (PF) 1 DROPS OPHTH (05:35)
[2023-07-31 05:42] LABS: Blood Urea Nitrogen 25 mg/dl (9-20); Carbon Dioxide 31 mmol/L (22-30); Chloride 102 mmol/L (98-107); Estimated Creatinine Clearance > 125 ml/min; Glucose 179 mg/dl (70-99); Potassium 3.8 mmol/L (3.5-5.1); Sodium 138 mmol/L (135-145); eGFR > 60.00
[2023-07-31 06:20] VITALS: BP 108/65
[2023-07-31 07:23] LABS: Glucose - Point of Care 168 mg/dl (70-99)
[2023-07-31 07:28] VITALS: BP 122/66
--- NOTE | 2023-07-31 07:30 | FALL ---
Description of Fall: 619: Pt was previously ambulating in hallway w walker, stated went to sit down in recliner and arm slipped off arm rest, pt then fell to the floor
Injuries Noted: none
Action Taken: pt placed back in chair by staff, MS assessed, vital signs taken, skin assessed, pt taught no ambulation without use of call heredia and staff assist
Name of Provider Notified: Dr. Fredrick Clements
--- NOTE | 2023-07-31 08:29 | PN.DE.MGMTRT ---
Insulin Management
- -
07/31/2023: Diabetes Management F/U:
67 year old male with PMH: HTN, Anxiety, HLD, A-Fib s/p Watchman procedure, GLORIA on CPAP, T1DM, recently dx with cecal cancer.
Pt is POD #1 s/p 1) robotic right colectomy for cecal cancer, 2) extensive lysis of adhesions, 3) primary umbilical hernia repair.
We are asked to consult for management of insulin pump. Pt Routinely sees Endo Dr. Herb Gold for diabetes management. He uses Omnipod with Dexcom G6 CGM, Humalog insulin and Ozempic 0.5mg every Monday. States GLP1 was started on 05/28/2023 for
weight loss mgt in order for him to lose weight and have knee replacement surgery. He has lost ~10lbs since starting it but had to hold it on 07/15 in prep for this colorectal surgery.
Current A1C 7.3%, Cr 0.6, eGFR>60. His Pod is set in Automated mood, he uses a correction factor of 1:15 with a target of 120. 24hr Total basal is 60 units
Pt awake, A/O x3, sitting up in chair, offers no complaints, able to discuss diabetes management
Pt does not uses carb rations and just comes up with random bolus doses of insulin at meal times based on what meal he is having.
States he would not adm any bolus for a blood sugar of <150 because he is afraid of his sugars dropping.
His diet was advanced over the weekend and sugars are relatively stable, FBG 179 this AM.
Will make no changes to current insulin pump settings.
POD was changed yesterday and CGM due to be changed today @6pm.
Patient is on Ozempic 0.5mg every Monday, was started on 05/28/2023 for weight loss mgt but has been on hold for several weeks in prep for surgery.
Diabetes History
- -
Type of Diabetes: 1
Pre-Admission Diabetes Regimen
07/31/23
05:09
Creatinine 0.7
Lab Results
Hemoglobin A1c 7.4 % (4.0-5.6) H 07/27/23 13:33
Insulin Pump Settings
IP Diabetes Regimen
07/30/23 07/30/23 07/30/23
07:55 11:47 17:17
Glucose
POC Glucose 153 H 132 H 205 H
07/30/23 07/31/23 07/31/23
21:41 05:09 07:22
Glucose 179 H
POC Glucose 216 H 168 H
Meal type: Breakfast
Meal type: Dinner
Meal type: Lunch
Meal type: Breakfast
Amount consumed: 100%
Amount consumed: 100%
Amount consumed: 100%
Amount consumed: 100%
Patient Education
[2023-07-31] MEDS: INVANZ IV (08:37)
[2023-07-31] MEDS: COREG 25 MG PO (08:41)
[2023-07-31] MEDS: LOW STRENGTH ASPIRIN 81 MG PO (08:41)
[2023-07-31] MEDS: TYLENOL 650 MG PO ×3 (08:41→15:56)
[2023-07-31] MEDS: NEURONTIN 300 MG PO (08:41)
[2023-07-31] MEDS: ENTEREG 12 MG PO (08:42)
[2023-07-31] MEDS: ZYRTEC 10 MG PO (08:42)
[2023-07-31] MEDS: THERAGRAN 1 TABLET PO (08:42)
[2023-07-31] MEDS: LIPITOR 40 MG PO (08:42)
[2023-07-31] MEDS: NORVASC 5 MG PO (08:42)
[2023-07-31] MEDS: APRESOLINE 50 MG PO (08:42)
[2023-07-31] MEDS: LEXAPRO 10 MG PO (08:42)
[2023-07-31] MEDS: PT'S OWN INSULIN PUMP - HumaLOG 3.20000000000000018 UNIT SC ×2 (08:43→12:37)
[2023-07-31] MEDS: NSS (PRESERVATIVE FREE) 10 ML IV (08:43)
[2023-07-31] MEDS: PROTONIX IV 40 MG IV (08:43)
[2023-07-31] MEDS: XANAX 2 MG PO (10:29)
--- NOTE | 2023-07-31 10:35 | W.PN.CRS1 ---
Today's Communication / Plan
-
hold lovenox
repeat cbc at noon
Assessment/Plan
-
67 yo male with h/o IDDM and cecal cancer now POD #4 robotic right colectomy with WALLY and primary UHR
--Continue ADA/LRD diet
--OOB/Ambulate
--Multimodal analgesics
--Continue patient's own insulin pump
--IV abx Invanz completed.
--Hold Lovenox given ecchymosis.
--Repeat CBC at noon today to recheck WBC and hemoglobin.
--Hold on discharge for now
Subjective Data
Procedure
07/27/2023- 1) robotic right colectomy 2) extensive lysis of adhesions 3) primary umbilical hernia repair
Subjective Data
Date of Service: July 31, 2023
Patient states he had a fall last night on his left side. He slipped and caught himself with his left arm. Otherwise he states he feels well. His pain has decreased and has intermittent gas pain. He had dark stool with some blood in it yesterday
morning which is decreasing since onset.
Objective Data
-
Vital Signs
Temp Pulse Resp BP Pulse Ox
97.5 F 81 16 122/66 93
07/31/23 07:28 07/31/23 08:42 07/31/23 07:28 07/31/23 08:42 07/31/23 07:28
Intake & Output
07/30/23 07/31/23 08/01/23
06:59 06:59 06:59
Intake Total 1919 1560 / 1560
Balance 1919 156 / 1560
Intake:
Oral fluids 1919 1500 / 1500
IV piggybacks 60 / 60
Other:
Number of approximated SMALL 5
amounts of urine
Number of approximated MODERATE 3 3
amounts of urine
Number of approximated LARGE 1 2
amounts of urine
Lab Results
07/31/23 05:09
Physical Exam
-
General: No Acute Distress and AOx3
Abdomen: Soft, Non Distended, Non Tender and Other (ecchymosis most pronounced on left side, suprapubic area, small amount on right side)
Wound: Dressing Changed
--- NOTE | 2023-07-31 11:41 | W.PN.HOSP.TC ---
Today's Communication/Plan
-
monitor vitals
see plan
monitor hgb
cw BP meds
continue to hold valsartan
Assessment / Plan
Assessment / Plan
Mr. Mat Ferrell is a 67 yo man with hx HTN, anxiety, HLD, afib s/p Watchman procedure, GLORIA on CPAP, with recently diagnosed cecal cancer now s/p robotic right colectomy this morning. We are asked to consult for medical management of HTN and
DM1.
Cecal Cancer s/p Robotic Right Colectomy
-admitted to surgery service
-plan per CRS
-tolerating LRD
-pain control
Mild anemia likely acute blood loss from surgery and some from abdominal wall ecchymosis
monitor
repeat hgb
DM type I
-patient has resumed own insulin pump which he is managing
-monitor BGL: patient to correct with pump
HTN
-home regimen: amlodipine 5mg PO QD; Coreg 25mg PO BID; Hydralazine 50mg PO BID; Valsartan 320mg PO QD
-continue COLLABORATIVE PHYSICIAN Coreg, Amlodipine; resume full dose Hydralazine; HOLD valsartan for now; restart when BP>140/90
-if discharged today, patient can resume entire home regimen other than valsartan. restart when BP>140/90
-I encouraged patient to get a blood pressure monitor at home
Anxiety
-continue COLLABORATIVE PHYSICIAN regimen Lexapro daily, Xanax 2mg q 12 PRN
Hypothyroidism
-COLLABORATIVE PHYSICIAN Synthroid
GERD
-on oral protonix at home, continue IV here
Obesity
-patient is on Ozempic weekly at home which he has held for several weeks
DVT PPx SCD
General: Obese
HEENT: PERRLA
Respiratory: Clear to Auscultation; Negative Wheezes
Cardiac: Regular Rhythm and S1/S2
GI: Other (incisions c/d/i)
Musculoskeletal: No Edema
Skin: Warm and Dry; Negative Rash
Neuro: AO x 3
Psych: Calm
Anticipated Discharge: Within 24 hours
Subjective/Interval History
-
Date of Service: July 31, 2023
denies nausea
Objective Data
-
Labs:
Laboratory Results
07/31/23 07/31/23 07/31/23
00:00 05:09 12:00
WBC Cancelled 6.9 Pending
Hgb Cancelled 12.7 L Pending
Hct Cancelled 37.7 L Pending
Plt Count Cancelled 194 Pending
Sodium 138
Potassium 3.8
Chloride 102
Carbon Dioxide 31 H
BUN 25 H
Creatinine 0.7
Glucose 179 H
Calcium 9.0
Vital Signs:
Vital Signs
Temp Pulse Resp BP Pulse Ox
97.5 F 81 16 122/66 93
07/31/23 07:28 07/31/23 08:42 07/31/23 07:28 07/31/23 08:42 07/31/23 07:28
I&O
07/30/23 07/31/23 08/01/23
06:59 06:59 06:59
Intake Total 1919 1560 / 1560
Balance 1919 156 / 1560
[2023-07-31 11:52] LABS: Glucose - Point of Care 174 mg/dl (70-99)
[2023-07-31 12:45] LABS: % Basophils 0.3 % (0-2); % Immature Granulocytes 0.8 % (0-0.5); % Lymphocytes 14.2 % (20.5-51.1); % Monocytes 9.4 % (1.7-9.3); % Neutrophils 72.3 % (42.2-75.2); Absolute Eosinophils 0.3 10^3/uL (0-0.7); Absolute Immature Granulocytes 0.1 10^3/uL (0-0.05); Absolute Lymphocytes 1.2 10^3/uL (1.2-3.4); Absolute Monocytes 0.8 10^3/uL (0.1-0.6); Absolute Neutrophils 6.3 10^3/uL (1.4-6.5); Hematocrit 38.2 % (39.0-52.0); Hemoglobin 12.7 g/dL (13.0-18.0); Mean Corp Hgb Conc. 33.2 g/dL (33.0-37.0); Mean Corpuscular Hgb 28.4 pg (27.0-31.0); Mean Corpuscular Volume 85.5 fL (80.0-94.0); Mean Platelet Volume 10.7 fL (7.4-10.4); Nucleated Red Blood Cells % 0 % (-); Platelet Count 207 10^3/uL (130-400); Red Blood Cell Count 4.47 10^6/uL (4.70-6.10); Red Cell Dist. Width 15.4 % (11.5-14.5); White Blood Cell Count 8.7 10^3/uL (4.8-10.8)
--- NOTE | 2023-07-31 14:17 | W.PN.UPDATE ---
Update Note
Progress Note Update
I reviewed the labs with Dr. Clements. I spoke with patient. He is willing to go home. I will arrange with case management.
--- NOTE | 2023-07-31 14:30 | W.DS.TRANS ---
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
-
Discharge Instructions:
Discharge Diagnosis/Procedures 1) robotic right colectomy 2) extensive lysis of
adhesions 3) primary umbilical hernia repair
Diet Low Residue
Activity No strenuous activity
Additional Activity No lifting over 10lbs (gallon of milk)
Driving Restrictions Not until seen by your Dr
Bathing Restrictions OK to Shower
Wound Care Allow glue to naturally fall off. Do not pick at
incisions.
Call if your bruising on your abdomen is getting
worse.
Instructions: Low Fiber Diet
Stand-Alone Forms:
Changes to Home Medications: Yes
Discharge Medications:
DC Medications w/original date entered in [employer]
hydralazine 50 mg tablet 50 mg PO BID 03/24/17
tadalafil 20 mg tablet (Cialis) 5 mg PO PRN PRN . 03/24/17
Men's 50 Plus Multivitamin 1 tab PO DAILY 07/06/23
alcaftadine 0.25 % eye drops (Lastacaft Once Daily Relief) 1 drp ophthalmic (eye) DAILY 07/06/23
alprazolam 1 mg tablet (Xanax) 2 mg PO BID 07/06/23
aspirin 81 mg chewable tablet 81 mg PO DAILY 07/06/23
atorvastatin 40 mg tablet (Lipitor) 40 mg PO DAILY 07/06/23
escitalopram oxalate 10 mg tablet (Lexapro) 10 mg PO DAILY 07/06/23
gabapentin 300 mg tablet 300 mg PO BID 07/06/23
pantoprazole 40 mg tablet,delayed release (Protonix) 40 mg PO DAILY 07/06/23
amlodipine 5 mg tablet 5 mg PO DAILY 07/24/23
carvedilol 25 mg tablet 25 mg PO BID 07/24/23
cetirizine 10 mg tablet (Zyrtec) 10 mg PO DAILY 07/24/23
cholecalciferol (vitamin D3) 25 mcg (1,000 unit) tablet (Vitamin D3) 25 mcg PO DAILY 07/24/23
insulin lispro 100 unit/mL subcutaneous cartridge (Humalog U-100 Insulin) 1 sliding scale dose SC DIRECTED 07/24/23
levothyroxine 137 mcg tablet 137 mcg PO DAILY 07/24/23
vitamin B complex 1 tab PO DAILY 07/24/23
Home Medication Changes
Stop: valsartan. restart when BP>140/90.
Pending Results: Yes
Additional Pending Results:
OR pathology
[2023-07-31 14:46] VITALS: BP 132/80
--- NOTE | 2023-07-31 14:53 | CM ---
Reviewed the chart notes and spoke with the patient at the bedside. IMM signed and placed on the chart. [facility] [employer] info provided and explained to the patient. VN will follow patient. The patient's son will provide transportation
home today. CM continues to be available to patient/family and is monitoring medical plan for needs at discharge.
Plan: Discharge to home with VN services.
--- NOTE | 2023-07-31 15:29 | VNURNOTE ---
Home Health Liaison met with patient at 1145 to discuss [facility] nurse/therapy, visits, schedule and homebound status. Patient is agreeable and understands that visits at home will be 2-3 x per week to assess and teach medical management.
[facility] contact information provided. Patient is aware that [facility] will contact him for start of care in 1-2 days after discharge from .
[facility] referral updated in [facility].
[2023-07-31 15:54] LABS: Glucose - Point of Care 198 mg/dl (70-99)
[2023-07-31] MEDS: PT'S OWN INSULIN PUMP - HumaLOG 3.5 UNIT SC (15:57)
== END 2023-07-31 17:57 | disposition home health service (06) | DRG 330 ==
LOC: 2 SOUTH 06:05
PROVIDERS: Physician Assistant; ADMITTING PHYSICIAN Surgery; CONSULT PHYSICIAN Student in an Organized Health Care Education/Training Program; FAMILY PHYSICIAN Internal Medicine Endocrinology, Diabetes & Metabolism
PROC: 8E0W4CZ Robotic Assisted Procedure of Trunk Region, Percutaneous Endoscopic Approach (ICD-10-PCS; 2023-07-27)
PROC: 0DNW4ZZ Release Peritoneum, Percutaneous Endoscopic Approach (ICD-10-PCS; 2023-07-27)
PROC: 0DBF4ZZ Excision of Right Large Intestine, Percutaneous Endoscopic Approach (ICD-10-PCS; 2023-07-27)
PROC: 0WQF4ZZ Repair Abdominal Wall, Percutaneous Endoscopic Approach (ICD-10-PCS; 2023-07-27)
DX: C18.0 Malignant neoplasm of cecum (principal); Z68.42 Body mass index [BMI] 45.0-49.9, adult; K42.9 Umbilical hernia without obstruction or gangrene; K66.0 Peritoneal adhesions (postprocedural) (postinfection); I10 Essential (primary) hypertension; F41.9 Anxiety disorder, unspecified; E03.9 Hypothyroidism, unspecified; K21.9 Gastro-esophageal reflux disease without esophagitis; E66.9 Obesity, unspecified; I48.91 Unspecified atrial fibrillation; E11.9 Type 2 diabetes mellitus without complications
CPT/HCPCS: 88309; 36415; 80048; 80053; 82378; 82962; 83036; 83735; 85025; 85027; 85610; 85730; 86803; 86850; 86900; 86901; 97116; 97163; 97530; J1335

== ENCOUNTER → 2024-02-19 07:21 | Outpatient (REF) | payer MEDICARE, SELFPAY | LOC: HWRAD 07:21 | PROVIDERS: ATTENDING PHYSICIAN Internal Medicine Hematology & Oncology; FAMILY PHYSICIAN Internal Medicine Endocrinology, Diabetes & Metabolism | DX: C18.2 Malignant neoplasm of ascending colon (principal) | CPT/HCPCS: 71260; 74177; Q9967 ==

== ENCOUNTER → 2024-03-04 17:53 | Outpatient (REF) | payer MEDICARE, SELFPAY | LOC: MRI 17:53 | PROVIDERS: ATTENDING PHYSICIAN Internal Medicine Hematology & Oncology; FAMILY PHYSICIAN Internal Medicine Endocrinology, Diabetes & Metabolism | DX: C18.2 Malignant neoplasm of ascending colon (principal) | CPT/HCPCS: 74183; A9575 ==

== ENCOUNTER 2024-04-23 06:19 | Day surgery (SDC) | payer MEDICARE, SELFPAY ==
[2024-04-23 07:16] VITALS: BP 113/68
[2024-04-23 07:20] VITALS: BMI 40.5
[2024-04-23 07:26] LABS: Glucose - Point of Care 101 mg/dl (70-99)
[2024-04-23 07:28] VITALS: BMI 40.5
[2024-04-23 09:10] VITALS: BP 116/72
[2024-04-23 09:15] VITALS: BP 120/82
[2024-04-23 09:31] VITALS: BP 101/86
== END 2024-04-23 09:50 | disposition home or self-care (01) ==
LOC: SDS 06:19
PROVIDERS: ATTENDING PHYSICIAN Internal Medicine Gastroenterology
DX: K86.9 Disease of pancreas, unspecified (principal); K31.89 Other diseases of stomach and duodenum
CPT/HCPCS: 43242; 88173; 88305; 82962

== ENCOUNTER → 2024-04-24 08:00 | Outpatient (REF) | payer MEDICARE, SELFPAY | LOC: DHVS 08:00 | PROVIDERS: ATTENDING PHYSICIAN Surgery Vascular Surgery; FAMILY PHYSICIAN Internal Medicine Endocrinology, Diabetes & Metabolism | DX: I73.9 Peripheral vascular disease, unspecified (principal) | CPT/HCPCS: 93922; 93925 ==

== ENCOUNTER 2024-04-25 06:22 | Day surgery (SDC) | payer MEDICARE, SELFPAY ==
[2024-04-25 07:21] LABS: Glucose - Point of Care 109 mg/dl (70-99)
== END 2024-04-25 09:27 | disposition home or self-care (01) ==
LOC: GI 06:22
PROVIDERS: ATTENDING PHYSICIAN Internal Medicine
DX: Z12.11 Encounter for screening for malignant neoplasm of colon (principal); K64.9 Unspecified hemorrhoids; K57.30 Diverticulosis of large intestine without perforation or abscess without bleeding; D12.2 Benign neoplasm of ascending colon; K63.5 Polyp of colon; Z98.0 Intestinal bypass and anastomosis status; Z85.038 Personal history of other malignant neoplasm of large intestine
CPT/HCPCS: 45385; 45380; 88305; 82962

== ENCOUNTER 2024-05-17 06:27 | Inpatient (IN) | payer MEDICARE, SELFPAY ==
[2024-05-01 09:06] LABS: Hematocrit 42.6 % (39.0-52.0); Hemoglobin 14.3 g/dL (13.0-18.0); Mean Corp Hgb Conc. 33.6 g/dL (33.0-37.0); Mean Corpuscular Hgb 29.1 pg (27.0-31.0); Mean Corpuscular Volume 86.6 fL (80.0-94.0); Mean Platelet Volume 10.3 fL (7.4-10.4); Platelet Count 256 10^3/uL (130-400); Red Blood Cell Count 4.92 10^6/uL (4.70-6.10); Red Cell Dist. Width 14.4 % (11.5-14.5); White Blood Cell Count 5.8 10^3/uL (4.8-10.8)
[2024-05-01 11:27] LABS: ALT (SGPT) 24 U/L (0-50); AST (SGOT) 24 U/L (17-59); Alkaline Phosphatase 81 U/L (38-126); Blood Urea Nitrogen 18 mg/dl (9-20); Calcium 9.4 mg/dl (8.4-10.2); Carbon Dioxide 33 mmol/L (22-30); Chloride 96 mmol/L (98-107); Glucose 109 mg/dl (70-99); Potassium 4.4 mmol/L (3.5-5.1); Sodium 135 mmol/L (135-145); Total Protein 6.4 g/dl (6.3-8.2); eGFR > 60.00
[2024-05-01 13:37] VITALS: BMI 40.7
[2024-05-10 10:34] VITALS: BMI 40.7
--- NOTE | 2024-05-13 11:50 | VNURNOTE ---
Chart reviewed. Patient was recommended PT, OT, SN x 2-3 weeks post op. [facility] referral placed in [facility]. Appears that patient had [facility] in the past. He will be admitted morning of surgery and will receive a CM after surgery. [facility] to follow up
post-op.
[2024-05-17] VITALS (16 sets, daily range): BP systolic 90–168; BP diastolic 63–105; PULSE 84–95; O2SAT 92; BMI 40.7
[2024-05-17] MEDS: TYLENOL 650 MG PO ×4 (07:18→20:10)
[2024-05-17] MEDS: CELEBREX 200 MG PO (07:18)
[2024-05-17] MEDS: NORMOSOL-R/PLASMALYTE-A 1000 IV ×2 (07:19→13:26)
[2024-05-17 07:22] LABS: Glucose - Point of Care 68 mg/dl (70-99)
[2024-05-17] MEDS: DEXTROSE 50% SYRINGE 12.5 GRAMS IV (07:26)
[2024-05-17 07:44] LABS: Glucose - Point of Care 112 mg/dl (70-99)
[2024-05-17 09:47] LABS: Glucose - Point of Care 126 mg/dl (70-99)
[2024-05-17 10:16] LABS: Glucose - Point of Care 105 mg/dl (70-99)
[2024-05-17] MEDS: ROXICODONE 5 MG PO (11:21)
--- NOTE | 2024-05-17 11:50 | PTCARENOTE ---
Telephone report received from BOOKSTORE CLERKJOY Whittaker; [facility] with 2L; VSS; admission history obtained at bedside.
--- NOTE | 2024-05-17 12:27 | W.PN.UPDATE ---
Update Note
Progress Note Update
L knee OA s/p L TKA w/ Dr Booth 05/17/24
DVT prophylaxis - ASA, b/l venous foot pumps
HTN - + parameters - monitor BP
Permanent A fib s/p Watchman 06/2021- monitor on tele
- Continue BB
- ASA only
�GLORIA, compliant w/ CPAP - monitor O2
- IS
- Resume CPAP HS
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
- Continue Gabapentin
GERD - continue PPI therapy
H/o GI bleeding - minimize NSAIDs
Iron deficiency anemia - non-invasive hgb in AM
Hypercholesterolemia
PVD
Diverticulosis
Nephrolithiasis, non-obstructive
Pancreatic and renal cysts
DDD
Cecal CA s/p robotic colectomy 07/2023
Hypothyroidism
Anxiety
[2024-05-17] MEDS: COREG PO (12:44)
[2024-05-17] MEDS: NEURONTIN PO (12:47)
[2024-05-17] MEDS: LEXAPRO PO (12:47)
[2024-05-17] MEDS: PROTONIX PO (12:47)
[2024-05-17] MEDS: LIPITOR PO (12:47)
[2024-05-17] MEDS: XANAX PO (12:48)
[2024-05-17] MEDS: NOVOLOG FLEXPEN-MODERATE RESISTANCE 4 UNITS SC (13:04)
[2024-05-17 13:05] LABS: Glucose - Point of Care 214 mg/dl (70-99)
--- NOTE | 2024-05-17 13:06 | PN.DE.MGMTRT ---
Insulin Management
- -
05/17/2024: Diabetes Management Consult:
68 year old male with PMH: HTN, Anxiety, HLD, A-Fib s/p Watchman procedure, GLORIA on CPAP, T1DM, colon polyps, Colon cancer s/p right colectomy.
Pt is POD # O s/p L knee OA s/p L TKA. We are asked to consult for management of insulin pump. Pt well known to diabetes team from prior hospital admission. He routinely sees Endo Dr. Herb Gold for diabetes management. He uses Omnipod with Dexcom
G6 CGM, Humalog insulin and Ozempic 0.5mg every Monday. States GLP1 was started on 05/28/2023 for weight loss mgt in order for him to lose weight and have knee replacement surgery. He has lost ~45lbs since starting it. Current A1C 7.0, has dropped
from 7.3%. Cr 0.6, eGFR>60. His Pod is set in Automated mood, he uses a correction factor of 1:21 with a target of 120. 24hr Total basal is 70 units
Pt awake, A/O x3, sitting up in bed, offers no complaints, able to discuss diabetes management
States he suspended his insulin while in the OR and that his blood sugar is currently >200, recent POC blood sugar was 214 pre-lunch, pt has 5.5units on board.
Review of his CGM shows his time in range is 83%. He has been started on a diet and tolerating it well. Reviewed bedside work sheet with pt and Nurse.
Will make no changes to current insulin pump settings. Pt is independent with insulin pump management. Will cont to follow
Instructed to resume Ozempic upon discharge.
Diabetes History
- -
Type of Diabetes: 1
Pre-Admission Diabetes Regimen
Lab Results
Hemoglobin A1c 7.0 % (4.0-5.6) H 05/01/24 07:46
Insulin Pump Settings
IP Diabetes Regimen
05/17/24 05/17/24 05/17/24
07:19 07:43 09:45
POC Glucose 68 L 112 H 126 H
05/17/24 05/17/24
10:15 13:04
POC Glucose 105 H 214 H
Patient Education
[2024-05-17] MEDS: DIOVAN PO (14:17)
[2024-05-17] MEDS: ROXICODONE 10 MG PO ×2 (15:41→20:22)
[2024-05-17] MEDS: DIOVAN 160 MG PO (15:46)
--- NOTE | 2024-05-17 16:37 | W.PN.UPDATE ---
Addendum entered and electronically signed by Oswaldo Booth MD 05/17/24 16:45:
Patient will benefit from home PT and VN for 2-3 weeks
Original Note:
Update Note
Progress Note Update
Patient doing well post op left TKR. Has been OOB and in the hallway. VSS. Pulm: nonlabored. LLE: Dressing CDI. Calf soft. Able to fully extend. Postop xrays as expected. ASA for DVT prophylaxis. Plan for PT tomorrow and discharge home if
doing well.
[2024-05-17 16:39] LABS: Glucose - Point of Care 229 mg/dl (70-99)
[2024-05-17] MEDS: PT'S OWN INSULIN PUMP - NovoLOG 4 UNIT SC (16:45)
[2024-05-17] MEDS: ANCEF 5 IV (17:04)
[2024-05-17] MEDS: ASPIRIN 325 MG PO (17:05)
[2024-05-17] MEDS: BACTROBAN 2% OINTMENT 1 APPLIC NASAL (20:09)
[2024-05-17] MEDS: COLACE 100 MG PO (20:10)
[2024-05-17] MEDS: NEURONTIN 300 MG PO (20:10)
[2024-05-17] MEDS: SENOKOT 17.2 MG PO (20:10)
[2024-05-17] MEDS: COREG 25 MG PO (20:10)
[2024-05-17] MEDS: ZADITOR 1 DROP BOTH EYES (20:11)
[2024-05-17] MEDS: XANAX 1 MG PO (20:11)
[2024-05-17 21:12] LABS: Glucose - Point of Care 197 mg/dl (70-99)
[2024-05-18] MEDS: TYLENOL PO (01:02)
[2024-05-18] MEDS: ANCEF 5 IV (01:17)
[2024-05-18 03:00] VITALS: BP 129/100
[2024-05-18] MEDS: ROXICODONE 10 MG PO ×2 (03:05→08:07)
[2024-05-18] MEDS: TYLENOL 650 MG PO ×2 (03:06→08:01)
[2024-05-18] MEDS: SYNTHROID 137 MCG PO (05:23)
[2024-05-18 07:20] VITALS: BP 160/100
[2024-05-18 07:38] LABS: Glucose - Point of Care 188 mg/dl (70-99)
[2024-05-18] MEDS: PT'S OWN INSULIN PUMP - NovoLOG 7 UNIT SC (07:59)
[2024-05-18] MEDS: DIOVAN 160 MG PO (08:00)
[2024-05-18] MEDS: PROTONIX 40 MG PO (08:00)
[2024-05-18] MEDS: SENOKOT 17.2 MG PO (08:00)
[2024-05-18] MEDS: NEURONTIN 300 MG PO (08:00)
[2024-05-18] MEDS: XANAX 1 MG PO (08:01)
[2024-05-18] MEDS: ASPIRIN 325 MG PO (08:01)
[2024-05-18] MEDS: LIPITOR 40 MG PO (08:01)
[2024-05-18] MEDS: COLACE 100 MG PO (08:01)
[2024-05-18] MEDS: NORVASC 2.5 MG PO (08:01)
[2024-05-18] MEDS: ZADITOR 1 DROP BOTH EYES (08:02)
[2024-05-18] MEDS: BACTROBAN 2% OINTMENT 1 APPLIC NASAL (08:03)
[2024-05-18] MEDS: LEXAPRO 10 MG PO (08:07)
[2024-05-18] MEDS: COREG 25 MG PO (08:07)
--- NOTE | 2024-05-18 08:24 | W.DS.TRANS ---
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
-
Discharge Instructions:
Discharge Diagnosis/Procedures left knee osteoarthritis status post left total
knee arthroplasty
Diet Diabetic, Carb Controlled
Activity As tolerated
Driving Restrictions No driving for 2 weeks
Bathing Restrictions OK to Shower
Other Services VN,PT
Wound Care May remove dressing in 7-10 days, then leave
open to air
Instructions:
Stand-Alone Forms:
Changes to Home Medications: No
Discharge Medications:
DC Medications w/original date entered in [employer]
hydralazine 50 mg tablet 50 mg PO BID 03/24/17
tadalafil 20 mg tablet (Cialis) 5 mg PO PRN PRN . 03/24/17
Men's 50 Plus Multivitamin 1 tab PO DAILY 07/06/23
alprazolam 1 mg tablet (Xanax) 1 mg PO BID 07/06/23
aspirin 81 mg chewable tablet 81 mg PO DAILY 07/06/23
atorvastatin 40 mg tablet (Lipitor) 40 mg PO DAILY 07/06/23
escitalopram oxalate 10 mg tablet (Lexapro) 10 mg PO DAILY 07/06/23
pantoprazole 40 mg tablet,delayed release (Protonix) 40 mg PO DAILY 07/06/23
amlodipine 5 mg tablet 5 mg PO DAILY 07/24/23
carvedilol 25 mg tablet 25 mg PO BID 07/24/23
cholecalciferol (vitamin D3) 25 mcg (1,000 unit) tablet (Vitamin D3) 25 mcg PO DAILY 07/24/23
insulin lispro 100 unit/mL subcutaneous cartridge (Humalog U-100 Insulin) 1 sliding scale dose SC DIRECTED 07/24/23
levothyroxine 137 mcg tablet 137 mcg PO DAILY 07/24/23
vitamin B complex 1 tab PO DAILY 07/24/23
Tylenol 1,000 mg PO DAILY 04/23/24
azelastine 0.05 % eye drops 1 drp BOTH EYES BID 04/23/24
semaglutide 2 mg/dose (8 mg/3 mL) subcutaneous pen injector (Ozempic) 2 mg SC QWEEK 04/23/24
valsartan 320 mg tablet (Diovan) 320 mg PO DAILY 04/23/24
gabapentin 300 mg capsule 300 mg PO BID 05/10/24
aspirin 325 mg tablet 325 mg PO DAILY 14 days #0 tabs 05/18/24
docusate sodium 100 mg capsule 100 mg PO BID #0 caps 05/18/24
mupirocin 2 % topical ointment 1 applic intranasal BID postop #0 grams 05/18/24
oxycodone 5 mg tablet 5 mg PO Q4HPRN PRN moderate pain #0 tabs 05/18/24
sennosides 8.6 mg tablet (Norma-rocío) 17.2 mg (2 x 8.6 mg) PO BID #0 tabs 05/18/24
Home Medication Changes
Pending Results: No
--- NOTE | 2024-05-18 08:25 | W.DCSUMMARY ---
Discharge Summary
Discharge Data
Date of Admission: 05/17/24
Date of Discharge: 05/18/24
-
Pending Results: No
Hospital Course
68 year old male admitted to [facility] following left total knee arthroplasty on 05/17/24 under the direction of Dr. Booth. He was evaluated by physical therapy with recommendations for discharge to home with home health. Case management
was consulted for discharge planning. His pain was controlled and his medical status was monitored. He was deemed medically stable for discharge on 05/18/24. He is to be weight bearing as tolerated to the left leg. He is to ambulate with a rolling
walker. He will be on aspirin 325mg daily for two weeks, then he will take aspirin 81mg two times per day for two weeks for DVT prophylaxis. He will follow up outpatient in two weeks.
Discharge Plan
-
Patient Disposition: Home with Home Care
Discharge Diagnosis/Procedures: left knee osteoarthritis status post left total knee arthroplasty
Diet: Diabetic, Carb Controlled
Activity: As tolerated
Driving Restrictions: No driving for 2 weeks
Bathing Restrictions: OK to Shower
Other Services: VN and PT
Wound Care: May remove dressing in 7-10 days, then leave open to air
Referrals:
Oswaldo Booth MD [Active] - in two weeks
Herb Gold MD [Family Provider] -
Prescriptions:
New
aspirin 325 mg Tablet
325 mg PO DAILY 14 Days Qty: 0 0RF
docusate sodium 100 mg Capsule
100 mg PO BID Qty: 0 0RF
mupirocin 2 % Ointment
1 applic intranasal BID Qty: 0 0RF
sennosides [Norma-rocío] 8.6 mg Tablet
17.2 mg PO BID Qty: 0 0RF
oxycodone 5 mg Tablet
5 mg PO Q4HPRN PRN (Reason: moderate pain) Qty: 0 0RF
Continued
hydralazine 50 MG tablet
50 mg PO BID
tadalafil [Cialis] 20 MG tablet
5 mg PO PRN PRN (Reason: .)
atorvastatin [Lipitor] 40 mg Tablet
40 mg PO DAILY
alprazolam [Xanax] 1 mg Tablet
1 mg PO BID
Rx Instructions:
anxiety
pantoprazole [Protonix] 40 mg Tablet,Delayed Release (Dr/Ec)
40 mg PO DAILY
escitalopram oxalate [Lexapro] 10 mg Tablet
10 mg PO DAILY
Men's 50 Plus Multivitamin
1 tab PO DAILY
levothyroxine 137 mcg Tablet
137 mcg PO DAILY
carvedilol 25 mg Tablet
25 mg PO BID
amlodipine 5 mg Tablet
5 mg PO DAILY
vitamin B complex Tablet
1 tab PO DAILY
Humalog U-100 Insulin 100 unit/mL Cartridge
1 sliding scale dose SC DIRECTED
Patient Comments:
Patient took off @ 06:35 this morning 05/17/24.
Rx Instructions:
continuous insulin pump-insuln based off of CGM
cholecalciferol (vitamin D3) [Vitamin D3] 25 mcg (1,000 unit) Tablet
25 mcg PO DAILY
valsartan [Diovan] 320 mg Tablet
320 mg PO DAILY
Ozempic 2 mg/dose (8 mg/3 mL) Pen Injector
2 mg SC QWEEK
Rx Instructions:
Takes on Monday
azelastine 0.05 % Drops
1 drp BOTH EYES BID
Tylenol
1,000 mg PO DAILY
gabapentin 300 mg Capsule
300 mg PO BID
Held
aspirin 81 mg Tablet,Chewable
81 mg PO DAILY
Hold Instructions: Resume on 06/01/24. resume two time per day for two weeks after completion two weeks of aspirin 325mg daily
Discontinued
mupirocin 2 % Ointment
1 applic TOPICAL BID
Rx Instructions:
Begin 3 days prior to surgery
Discharge Orders:
Discharge Patient (As Directed); Ordered 05/18/24
Ordered By: Anika Beavers
Discharge Date and Time
Print Language: HAITIAN
[2024-05-18 09:31] VITALS: BP 153/89
[2024-05-18 10:10] VITALS: BP 153/89; PULSE 94; O2SAT 100
--- NOTE | 2024-05-18 10:50 | CM ---
Patient seen at bedside.
IA completed
CM consult completed
Lives in a 1st floor apartment, no steps
PLOF: Independent
DME: Walker, shower chair, CPAP ([facility])
Referral in for [facility] - accepted
PCP: Herb Gold
Pharmacy: [facility] [place]
PLAN: Home with [facility]
friend to transport
[2024-05-18 10:53] VITALS: BP 152/76
[2024-05-20 19:03] LABS: Hepatitis C Antibody Negative (Negative)
== END 2024-05-18 11:17 | disposition home health service (06) | DRG 470 ==
LOC: 2 SOUTH 06:27
PROVIDERS: ADMITTING PHYSICIAN Orthopaedic Surgery; FAMILY PHYSICIAN Internal Medicine Endocrinology, Diabetes & Metabolism; REFERRING PHYSICIAN Internal Medicine Cardiovascular Disease
PROC: 0SRD0J9 Replacement of Left Knee Joint with Synthetic Substitute, Cemented, Open Approach (ICD-10-PCS; 2024-05-17)
DX: M17.12 Unilateral primary osteoarthritis, left knee (principal); I48.91 Unspecified atrial fibrillation; Z79.82 Long term (current) use of aspirin; Z79.899 Other long term (current) drug therapy; Z60.2 Problems related to living alone
CPT/HCPCS: 36415; 73560; 80053; 82962; 83036; 85027; 86803; 87070; 94660; 97110; 97116; 97162; 97166; 97535; C1713; C1776

== ENCOUNTER 2024-06-12 18:55 | Inpatient (IN) | payer MEDICARE, SELFPAY ==
[2024-06-12] VITALS (22 sets, daily range): BP systolic 89–146; BP diastolic 50–97; PULSE 89; BMI 46.5
[2024-06-12 11:14] LABS: Glucose - Point of Care 138 mg/dl (70-99)
--- NOTE | 2024-06-12 11:23 | ED.GENMED ---
History of Present Illness
<Ryder Cool PA-C - Last Filed: 06/12/24 16:44>
General
Chief Complaint: Fall
Time Seen by Provider: 06/12/24 11:06
History of Present Illness
History of Present Illness:
68-year-old male with history of insulin-dependent diabetes, hypertension, hyperlipidemia, permanent A-fib status post Watchman, colon cancer status post partial colectomy, and hypothyroidism presents to the emergency department for evaluation after
multiple falls in the past 2 days. Denies any associated dizziness or fatigue during these episodes. States yesterday he 'nodded off briefly' while sitting on the toilet and fell onto his right side. Denies a head strike. Notes today he stumbled
while performing physical therapy and fell onto his right side. Again denies head strike. He is on 162 mg of aspirin daily for clot prevention after knee replacement that was just under 1 month ago, performed by Dr. Booth at this facility.
States his left knee has been improving and his function has been improving throughout physical therapy. On arrival he is noted to be tachypneic with mild tachycardia and hypotension but at this point he denies any chest pain or shortness of breath
Past History
<Ryder Cool PA-C - Last Filed: 06/12/24 16:44>
Past History
ED Past Medical History: GERD, HTN, IDDM and Psychiatric (Anxiety)
ED Past Surgical History: Appendectomy
Social History
Tobacco: Non-smoker
Alcohol: None
Drug: None
Living: with family
Employment: Employed
Review of Systems
<Ryder Cool PA-C - Last Filed: 06/12/24 16:44>
Review of Systems
Allergies reviewed?: Yes
All Other Systems: ROS reviewed and negative except as documented in HPI and ROS
Phy Exam
<Ryder Cool PA-C - Last Filed: 06/12/24 16:44>
Physical Exam
Physical Exam:
GEN: Well appearing, NAD, WDWN
HEENT: Normocephalic and atraumatic oral mucosa moist, no scleral icterus
Cardiac: Mildly tachycardic, regular
Lung: Tachypneic, no accessory muscle use, minimal conversational dyspnea, globally clear lungs
MSK: No gross deformity or injuries. Status post left total knee arthroplasty, wound is well-approximated and there is no erythema or significant swelling. No pain to palpation of bilateral hips and pelvis, right hip range of motion normal with no
pain. No midline cervical, thoracic, or lumbar spinal tenderness.
Skin: Good color, no pallor or jaundice, no rashes
Neuro: AO x3, moves all extremities freely
Psych: Calm, cooperative
Course
<Ryder Cool PA-C - Last Filed: 06/12/24 16:44>
Orders/Labs/Results
Orders:
Orders
06/12/24 11:22
Electrocardiogram (*1) Urgent
Reason for Study: Tachycardia
EKG- Treatment ONCE
06/12/24 11:23
CR Chest - 2 Views Urgent
Comment:
Reason For Exam: SOB
06/12/24 11:53
Complete Blood Count/No Diff Urgent
Comprehensive Metabolic Panel Urgent
D-Dimer Urgent
NT-proBNP Urgent
Troponin I Urgent
06/12/24 12:50
0.9% Sodium Chloride 1000 ml [Nss] 1,000 ml IV BOLUS
06/12/24 12:51
Venous Doppler Lwr Ext Bilat [US Periph Venous LOWER Ext Cal] Urgent
Comment:
Reason For Exam: elevated D dimer
06/12/24 14:12
CT Chest PE Study Urgent
Comment:
Reason For Exam: sob
Abnormal Lab Results
06/12/24 06/12/24
11:12 11:53
WBC 12.6 H 10^3/uL
(4.8-10.8)
RBC 3.21 L 10^6/uL
(4.70-6.10)
Hgb 9.5 L g/dL
(13.0-18.0)
Hct 28.0 L %
(39.0-52.0)
RDW 16.0 H %
(11.5-14.5)
D-Dimer 4.75 H ug/mlFEU
(0.00-0.50)
BUN 57 H mg/dl
(9-20)
Creatinine 2.0 H mg/dL
(0.7-1.3)
Glucose 128 H mg/dl
(70-99)
Alkaline Phosphatase 137 H U/L
(38-126)
Total Protein 5.4 L g/dl
(6.3-8.2)
Albumin 2.7 L g/dl
(3.5-5.0)
POC Glucose 138 H mg/dl
(70-99)
06/12/24 11:53
06/12/24 11:53
Vital Signs
Initial and Last Documented VS:
Initial Vital Signs
Temp Pulse Resp BP Pulse Ox
97.8 F 103 22 89/50 96
06/12/24 11:08 06/12/24 11:08 06/12/24 11:08 06/12/24 11:08 06/12/24 11:08
Last Documented Vital Signs
Temp Pulse Resp BP Pulse Ox
97.8 F 104 24 137/79 93
06/12/24 11:08 06/12/24 15:15 06/12/24 15:45 06/12/24 15:15 06/12/24 15:30
<Jayjay Gary MD - Last Filed: 06/12/24 15:01>
Orders/Labs/Results
Orders:
Orders
06/12/24 11:22
Electrocardiogram (*1) Urgent
Reason for Study: Tachycardia
EKG- Treatment ONCE
06/12/24 11:23
CR Chest - 2 Views Urgent
Comment:
Reason For Exam: SOB
06/12/24 11:53
Complete Blood Count/No Diff Urgent
Comprehensive Metabolic Panel Urgent
D-Dimer Urgent
NT-proBNP Urgent
Troponin I Urgent
06/12/24 12:50
0.9% Sodium Chloride 1000 ml [Nss] 1,000 ml IV BOLUS
06/12/24 12:51
Venous Doppler Lwr Ext Bilat [US Periph Venous LOWER Ext Cal] Urgent
Comment:
Reason For Exam: elevated D dimer
06/12/24 14:12
CT Chest PE Study Urgent
Comment:
Reason For Exam: sob
Abnormal Lab Results
06/12/24 06/12/24
11:12 11:53
WBC 12.6 H 10^3/uL
(4.8-10.8)
RBC 3.21 L 10^6/uL
(4.70-6.10)
Hgb 9.5 L g/dL
(13.0-18.0)
Hct 28.0 L %
(39.0-52.0)
RDW 16.0 H %
(11.5-14.5)
D-Dimer 4.75 H ug/mlFEU
(0.00-0.50)
BUN 57 H mg/dl
(9-20)
Creatinine 2.0 H mg/dL
(0.7-1.3)
Glucose 128 H mg/dl
(70-99)
Alkaline Phosphatase 137 H U/L
(38-126)
Total Protein 5.4 L g/dl
(6.3-8.2)
Albumin 2.7 L g/dl
(3.5-5.0)
POC Glucose 138 H mg/dl
(70-99)
06/12/24 11:53
06/12/24 11:53
Vital Signs
Initial and Last Documented VS:
Initial Vital Signs
Temp Pulse Resp BP Pulse Ox
97.8 F 103 22 89/50 96
06/12/24 11:08 06/12/24 11:08 06/12/24 11:08 06/12/24 11:08 06/12/24 11:08
Last Documented Vital Signs
Temp Pulse Resp BP Pulse Ox
97.8 F 104 24 137/79 93
06/12/24 11:08 06/12/24 15:15 06/12/24 15:45 06/12/24 15:15 06/12/24 15:30
<Ryder Cool PA-C - Last Filed: 06/12/24 16:44>
MDM/Problems Addressed
MDM/Problems Addressed:
68-year-old male presents after a fall. He has no complaints of injuries as a result of this fall. Interestingly he is noted to have acute kidney injury evidenced by elevated creatinine as well as anemia, heme-negative stool on exam. Anemia may
be secondary to recent total knee arthroplasty and may be driving the patient's shortness of breath however he is noted to be hypoxic. Imaging reveals a new left pleural effusion of uncertain etiology which may be the main cause of the patient's
hypoxia. No evidence of DVT or PE. Given the multitude of issues will admit this patient for further management to the hospitalist service
<Ryder Cool PA-C - Last Filed: 06/12/24 16:44>
*Critical Care Note
Total Time (30-74mins, 75-104mins- exclusive of procedures): Not Applicable
ED Attending Note
<Ryder Cool PA-C - Last Filed: 06/12/24 16:44>
-
Portions of this chart may have been created with voice recognition software.� Occasional wrong word or��sound alike� substitutions may have occurred due to the inherent limitations of voice recognition software.
<Jayjay Gary MD - Last Filed: 06/12/24 15:01>
ED Attending Note
Patient seen and examined by attending physician: Yes
ED Attending Note:
I have seen and evaluated the patient with a [id number] encounter. I have spoken to the advance practicer provider and involved in the medical history, the physical exam, medical decision making.
Evaluation and management service: agree unless noted differently below.
Results interpretation: agree unless noted differently below.
Focused HPI: 68-year-old male with history as noted who had left total knee replacement with Dr. Booth 05/17 presents to the ER for evaluation of fatigue after a fall, hypoxia and some mild shortness of breath. Patient reports that since his
procedure he has had significant fatigue and weakness. Has been doing rehab. He had a minor fall at rehab yesterday and then today at rehab again had a minor fall where his left leg felt weak under him. No serious injuries from the fall. They
checked his vital signs after the fall and he was noted to be hypoxic and appeared winded. Sent to the ER for evaluation. Denies any chest pain or palpitations. Swelling in the legs seems to be improving. Denies other complaints. Awake alert no
distress. Soft blood pressure 89/50
Physical exam: Normalized by my assessment. Mild tachycardia and mild tachypnea. Hypoxic requiring 2 L nasal cannula. No fever. Lungs clear to auscultation. He has edema left greater than right; anterior knee incision on the left appears
well-healing and no signs of acute infection.
Medical Decision Makin-year-old male presents for evaluation of weakness and fatigue after recent knee replacement; also has been having some mild shortness of breath and apparently had some hypoxia after a minor fall at rehab today. Vitals
and exam as above. Check labs including a CBC which showed a slight leukocytosis of unclear clinical significance in the setting of recent surgery; his hemoglobin is 9.5 which is a drop from prior�Hemoccult negative per PA. Likely postoperative.
CMP shows renal insufficiency with elevated BUN and creatinine�he was given some fluids. Troponin was undetectable, proBNP marginal. Chest x-ray trace pleural effusions mild cardiomegaly. Sent for an ultrasound of the legs, CTA chest to rule out
PE/DVT. Anticipate admission.
Discharge Plan
Departure
Patient Disposition: Admit
Date of Disposition: 06/12/24
Time of Disposition: 16:43
Admit to: Med/Surg
Presentation/result/management discussed w/ accepting MD/DO: Hospitalist
Discharge Problem:
SAMI (acute kidney injury), Hypoxia, Pleural effusion, left, Anemia
Prescriptions:
No Action
hydralazine 50 MG tablet
50 mg PO BID
tadalafil [Cialis] 20 MG tablet
5 mg PO DAILYPRN PRN (Reason: Erectile dysfunction)
pantoprazole [Protonix] 40 mg Tablet,Delayed Release (Dr/Ec)
40 mg PO DAILY
levothyroxine 137 mcg Tablet
137 mcg PO DAILY
carvedilol 25 mg Tablet
25 mg PO BID
amlodipine 5 mg Tablet
5 mg PO DAILY
cholecalciferol (vitamin D3) [Vitamin D3] 25 mcg (1,000 unit) Tablet
25 mcg PO DAILY
valsartan [Diovan] 320 mg Tablet
320 mg PO DAILY
Ozempic 2 mg/dose (8 mg/3 mL) Pen Injector
2 mg SC BARBER
Rx Instructions:
Takes on Monday
azelastine 0.05 % Drops
1 drp BOTH EYES BID
gabapentin 300 mg Capsule
300 mg PO BID
atorvastatin 40 mg Tablet
40 mg PO DAILY
alprazolam 1 mg Tablet
1 mg PO BID
Theragen Tablet
1 tab PO DAILY
acetaminophen 500 mg Tablet
1,000 mg PO TIDPRN PRN (Reason: mild pain)
aspirin 81 mg Tablet,Chewable
81 mg PO BID
escitalopram oxalate 10 mg Tablet
10 mg PO DAILY
Patient's Own Insulin Pump
1 dose SC .CONTINUOUS
Patient Comments:
06/12/24: patient uses Humalog insulin in the pump
fluticasone propionate 50 mcg/actuation [place]erglade,Suspension
2 spray INTRANASAL DAILY
Referrals:
UNKNOWN - PT DOES,NOT KNOW [Family Provider] -
Interventions
Interventions:
*Risk Screen - Suicide Last Done: 06/12/24 11:12
*General Assessment Last Done: 06/12/24 11:12
*Neglect/Abuse Screening Last Done: 06/12/24 11:12
*ED- Fall Risk Assessment Last Done: 06/12/24 11:12
*ED COVID-19 Vaccine History Last Done: 06/12/24 11:12
ED-Musculoskeletal Assessment Last Done: 06/12/24 11:14
ED- Neurological Assessment Last Done: 06/12/24 11:14
ED-Skin Assessment Last Done: 06/12/24 11:14
Discharge Date and Time
Print Language: LIBERIAN
[2024-06-12 12:10] LABS: Hemoglobin 9.5 g/dL (13.0-18.0); Mean Corp Hgb Conc. 33.9 g/dL (33.0-37.0); Mean Corpuscular Hgb 29.6 pg (27.0-31.0); Mean Corpuscular Volume 87.2 fL (80.0-94.0); Mean Platelet Volume 9.4 fL (7.4-10.4); Platelet Count 374 10^3/uL (130-400); Red Blood Cell Count 3.21 10^6/uL (4.70-6.10); White Blood Cell Count 12.6 10^3/uL (4.8-10.8)
[2024-06-12 12:21] LABS: ALT (SGPT) 20 U/L (0-50); AST (SGOT) 22 U/L (17-59); Albumin 2.7 g/dl (3.5-5.0); Alkaline Phosphatase 137 U/L (38-126); Blood Urea Nitrogen 57 mg/dl (9-20); Calcium 8.9 mg/dl (8.4-10.2); Carbon Dioxide 28 mmol/L (22-30); Chloride 102 mmol/L (98-107); Estimated Creatinine Clearance 48 ml/min; Glucose 128 mg/dl (70-99); Potassium 4.6 mmol/L (3.5-5.1); Sodium 136 mmol/L (135-145); Total Bilirubin 1.2 mg/dl (0.2-1.3); Total Protein 5.4 g/dl (6.3-8.2); eGFR 35.46
[2024-06-12 12:29] LABS: D-Dimer 4.75 ug/mlFEU (0.00-0.50)
[2024-06-12 12:31] LABS: NT-proBNP 1190 pg/ml; Troponin I < 0.012 ng/ml
[2024-06-12] MEDS: NSS 1000 IV ×2 (12:53→20:42)
--- NOTE | 2024-06-12 17:07 | HPS.HSE ---
Addendum entered and electronically signed by LUCY Pinedo 06/12/24 19:31:
Bedside 2D echo: showing small pericardial effusion
Patient was seen at bedside by Dr. Orlando Le
-Okay for further IV fluids for SAMI
Original Note:
Family Physician
<LUCY Pinedo - Last Filed: 06/12/24 18:42>
-
Family Physician: NOT KNOW UNKNOWN - PT DOES
Chief Complaint
<LUCY Pinedo - Last Filed: 06/12/24 18:42>
History of Present Illness
68-year-old male from home presenting to the ER after multiple falls over the past 2 days. He states he nodded off briefly while sitting on the toilet and fell off to the right side he denies hitting his head today he stumbled while performing
physical therapy and fell onto his right side again denying head injury or LOC. On arrival to the ED he was noted to be tachypneic with mild tachycardia and hypotension BP 89/50. He is confused, tachypneic and wheezing. He is having difficulty
following commands he has been looking on his phone to try to find his manager property's name but then needs reminder of what he is looking for. His son is at bedside and states he has not typically confused. His son does not know his past medical
history, He is on aspirin 162 mg total daily until 06/18/2024 he was on prior 325 mg for 2 weeks. His continuous glucometer is currently alarming and not working he does not know how to turn it off as he cannot remember. The patient had left total
knee arthroplasty on 05/17/2024 2/ left knee osteoarthritis by Dr. Booth he was sent home with home health and physical therapy to come to his house. He is to be weightbearing as tolerated to left leg he initially was on aspirin 325 mg for 2 weeks
then will be on aspirin 81 mg twice daily for 2 additional weeks should be done approximately 06/18/2024. He had blood work in April with a hemoglobin of 14.3 had no postop hemoglobin after surgery on 05 17 until today which showing hemoglobin of
9.5. His CT chest is showing moderate pericardial effusion
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 Mosley on 07/27/2023
<Brian Redding DO - Last Filed: 06/12/24 18:40>
-
Frequent falls
Medical History
<LUCY Pinedo - Last Filed: 06/12/24 18:42>
Past Medical History
Past Medical History: Reports Other
Additional Past Medical History:
osteoarthritis bilateral knees
Right knee injected with Zilretta injection 06/03/2024
GERD
HTN
DM2
anxiety
class III obesity
GLORIA on CPAP full mask setting 14
Permanent A-fib
Watchman device June 2021 for permanent A-fib
History of bleeding on Xarelto
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 Mosley on 07/27/2023
Past Surgical History: Reports Other
Additional Past Surgical History:
left total knee arthroplasty on 05/17/2024 2/2 left knee osteoarthritis by Dr. Booth
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 Mosley on 07/27/2023
Social History
Tobacco: Non-smoker
Alcohol: None
Drug: None
Personal:
Living: Alone
Employment: Retired
Family History
Family History: Other (Father pancreatic cancer age 70 to 80s other prior history of laryngeal cancer, smoker, mother renal carcinoma, 1 brother healthy living at age 81)
Allergies / Home Medications
Allergies reflects when Allergies were last updated in [employer].
Home Medications with original date entered in [employer]
Allergy/Medication List:
Allergies
Allergy/AdvReac Type Severity Reaction Status Date / Time
rivaroxaban [From Xarelto] Allergy bleeding Verified 05/17/24 06:59
Home Medications
hydralazine 50 mg tablet 50 mg PO BID 03/24/17
tadalafil 20 mg tablet (Cialis) 5 mg PO DAILYPRN PRN Erectile dysfunction 03/24/17
pantoprazole 40 mg tablet,delayed release (Protonix) 40 mg PO DAILY 07/06/23
amlodipine 5 mg tablet 5 mg PO DAILY 07/24/23
carvedilol 25 mg tablet 25 mg PO BID 07/24/23
cholecalciferol (vitamin D3) 25 mcg (1,000 unit) tablet (Vitamin D3) 25 mcg PO DAILY 07/24/23
levothyroxine 137 mcg tablet 137 mcg PO DAILY 07/24/23
azelastine 0.05 % eye drops 1 drp BOTH EYES BID 04/23/24
semaglutide 2 mg/dose (8 mg/3 mL) subcutaneous pen injector (Ozempic) 2 mg SC BARBER 04/23/24
valsartan 320 mg tablet (Diovan) 320 mg PO DAILY 04/23/24
gabapentin 300 mg capsule 300 mg PO BID 05/10/24
Patient's Own Insulin Pump 1 dose SC .CONTINUOUS 06/12/24
acetaminophen 500 mg tablet 1,000 mg PO TIDPRN PRN mild pain 06/12/24
alprazolam 1 mg tablet 1 mg PO BID 06/12/24
aspirin 81 mg chewable tablet 81 mg PO BID 06/12/24
atorvastatin 40 mg tablet 40 mg PO DAILY 06/12/24
escitalopram oxalate 10 mg tablet 10 mg PO DAILY 06/12/24
fluticasone propionate 50 mcg/actuation nasal spray,suspension 2 spray intranasal DAILY 06/12/24
therapeutic multivitamin 1 tab PO DAILY 06/12/24
kristin;Brian Redding DO - Last Filed: 06/12/24 18:40>
Allergies / Home Medications
Allergy/Medication List:
Allergies
Allergy/AdvReac Type Severity Reaction Status Date / Time
rivaroxaban [From Xarelto] Allergy bleeding Verified 05/17/24 06:59
Home Medications
hydralazine 50 mg tablet 50 mg PO BID 03/24/17
tadalafil 20 mg tablet (Cialis) 5 mg PO DAILYPRN PRN Erectile dysfunction 03/24/17
pantoprazole 40 mg tablet,delayed release (Protonix) 40 mg PO DAILY 07/06/23
amlodipine 5 mg tablet 5 mg PO DAILY 07/24/23
carvedilol 25 mg tablet 25 mg PO BID 07/24/23
cholecalciferol (vitamin D3) 25 mcg (1,000 unit) tablet (Vitamin D3) 25 mcg PO DAILY 07/24/23
levothyroxine 137 mcg tablet 137 mcg PO DAILY 07/24/23
azelastine 0.05 % eye drops 1 drp BOTH EYES BID 04/23/24
semaglutide 2 mg/dose (8 mg/3 mL) subcutaneous pen injector (Ozempic) 2 mg SC BARBER 04/23/24
valsartan 320 mg tablet (Diovan) 320 mg PO DAILY 04/23/24
gabapentin 300 mg capsule 300 mg PO BID 05/10/24
Patient's Own Insulin Pump 1 dose SC .CONTINUOUS 06/12/24
acetaminophen 500 mg tablet 1,000 mg PO TIDPRN PRN mild pain 06/12/24
alprazolam 1 mg tablet 1 mg PO BID 06/12/24
aspirin 81 mg chewable tablet 81 mg PO BID 06/12/24
atorvastatin 40 mg tablet 40 mg PO DAILY 06/12/24
escitalopram oxalate 10 mg tablet 10 mg PO DAILY 06/12/24
fluticasone propionate 50 mcg/actuation nasal spray,suspension 2 spray intranasal DAILY 06/12/24
therapeutic multivitamin 1 tab PO DAILY 06/12/24
Review of Systems
Alkalt;LUCY Pinedo - Last Filed: 06/12/24 18:42>
-
History Source: Patient and Family (Son at bedside)
A 12 point ROS was completed and negative except as noted: Yes
Constitutional: Reports Other (Confusion forgetting how to work his continuous glucometer, how to retrieve his doctors information from his telephone does not know manager property name); Denies Fever, Fatigue or Chills
EENT: Denies Sore Throat or Runny Nose
Respiratory: Reports Trouble Breathing (Tachypnea with expiratory wheezing); Denies Cough
Cardiac: Denies Chest Pain, Diaphoresis, Palpitations or Syncope
Abdomen/GI: Denies Abdominal Pain, Nausea, Vomiting, Diarrhea, Constipated, Bloody Stools or Black Stools
: Denies Dysuria, Frequency, Flank Pain, Incontinence, Difficulty Voiding or Urgency
Musculoskeletal: Reports Edema (Bilateral lower leg +2 edema with brown pigmentation, status post left knee arthroplasty incision intact, healed, surrounding resolving ecchymosis to medial aspect of thigh anterior knee lower leg); Denies Joint Pain
Skin: Denies Itching or Rash
Neurological: Reports Other (Confusion I will); Denies Dizzy, Headache or Weakness
Physical Exam
<LUCY Pinedo - Last Filed: 06/12/24 18:42>
Vital Signs
Vital Signs
Temp Pulse Resp BP Pulse Ox
97.8 F 104 24 137/79 93
06/12/24 11:08 06/12/24 15:15 06/12/24 15:45 06/12/24 15:15 06/12/24 15:30
<Brian Redding DO - Last Filed: 06/12/24 18:40>
Physical Exam
General: Well Developed and Morbidly Obese; No Respiratory Distress
HEENT: NormoCephalic, Anicteric, Moist mucous membranes, Atraumatic and PERRLA
Respiratory: Non Labored Respirations and Decreased Breath Sounds; No Wheezes, Rales, Rhonchi or Accessory Resp Muscle Use
Cardiac: S1/S2 (Reduced), Irregular Rhythm, Tachycardia and Peripheral Edema; No Murmur, Rub, Gallop or JVD (Difficult to assess with habitus)
GI: Soft, Non Tender, Non Distended and Normal Bowel Sounds
Musculoskeletal: No Clubbing and No Cyanosis
Skin: Warm and Dry; No Rash or Jaundice
Neuro: Awake, Alert, Oriented and Nonfocal/grossly intact
Psych: Calm
Laboratory Results
<LUCY Pinedo - Last Filed: 06/12/24 18:42>
-
06/12/24 11:53
06/12/24 11:53
Laboratory Results
Total Bilirubin 1.2 mg/dl (0.2-1.3) 06/12/24 11:53
AST 22 U/L (17-59) 06/12/24 11:53
ALT 20 U/L (0-50) 06/12/24 11:53
Alkaline Phosphatase 137 U/L (38-126) H 06/12/24 11:53
Troponin I < 0.012 ng/ml 06/12/24 11:53
Impression/Plan
<LUCY Pinedo - Last Filed: 06/12/24 18:42>
-
Impression/plan:
Admit to IMU
# Acute tachypnea with tachycardia, Hypotension secondary to Moderate pericardial effusion and small bilateral pleural effusions
93% RA, Respiratory rate 28�31
-Check 2D echo stat
-Consult DCA-discussed with Dr. Lucila Le
-Doctor Assistant Dr. Uriarte was seen prior at [facility] for his permanent A-fib
CT PE study: NO PE
There is moderate pericardial effusion which is new from prior exam and small bilateral pleural effusions with adjacent atelectasis
Bilateral venous duplex: No evidence for lower extremity venous thrombus
#Acute confusion unclear etiology possible neurological
-Obtain stat CT head
-Check stat Accu-Chek 171
#Acute hypotension likely secondary to SAMI, dehydration and blood loss anemia due to recent surgery
Benign HTN Hx
BP 89/50 > 137/79 post 1 L IV NSS
-Hold amlodipine 5 mg daily, carvedilol 25 mg twice daily, hydralazine 50 mg twice daily, Diovan 320 mg daily
-Iv Lopressor for Persistent HR >120 but must have sbp >100
#Symptomatic blood loss anemia/normocytic anemia due to left knee arthroplasty 05/17/2024
Hgb 9.5, MCV 87.2 was 14.3 on 05/01/2024, however status post left knee arthroplasty on 05/17/2024 with no pre or post labs
-Will check iron panel, B12, folate
#Recurrent falls likely due to orthostatic hypotension given SAMI/dehydration/blood loss anemia
1 while falling asleep other while completing physical therapy
-Check orthostatic vitals
-IV NSS 1 L given in ER
#SAMI secondary to volume depletion
Creat 2/bun 50
-IV NSS 1 L given in ER will hold further IV fluids until stat 2D echo is completed to determine ejection fraction given moderate pericardial effusion
-Follow BMP
#DM 2
-Patient on on insulin pump will allow pt on pump, acchecks q4h with dextrose overage for BS<70
-Hold Ozempic 2 mg subcu Sundays
[employer] Dr. Fairbanks
#S/P left total knee arthroplasty on 05/17/[address] Booth 2/2 Left knee osteoarthritis
Osteoarthritis right knee status post Zilretta injection 06/03/2024
-Continue gabapentin 300 mg p.o. twice daily, Tylenol 1000 mg 3 times daily as needed mild pain
-Continue PT /OT
#Permanent A-fib
#Watchman device June 2021 for permanent A-fib
#History of bleeding on Xarelto
-Continue aspirin 81 mg twice daily
#Lumbar radiculopathy
Status post bilateral L4-5, L5-S1 radiofrequency ablation
#Hypothyroidism
TSH with free T4 reflex
-Continue levothyroxine 137 mcg p.o. daily
#GLORIA on CPAP full mask setting 14
#Anxiety
-Continue alprazolam 1 mg p.o. twice daily, Lexapro 10 mg daily
GERD
-Continue Protonix 40 mg daily
#HLD
Continue atorvastatin 40 mg daily
#Erectile dysfunction
Hold Cialis
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 Mosley on 07/27/2023
#Class III obesity�BMI 43-
-weight loss recommended
-Continue Ozempic when at home
DVT prophylaxis
Continue aspirin 81 mg twice daily
Full code
[2024-06-12 18:07] LABS: % Basophils 0.2 % (0-2); % Eosinophils 0.7 % (0-6); % Immature Granulocytes 0.9 % (0-0.5); % Lymphocytes 5.5 % (20.5-51.1); % Monocytes 11.6 % (1.7-9.3); % Neutrophils 81.1 % (42.2-75.2); Absolute Eosinophils 0.1 10^3/uL (0-0.7); Absolute Immature Granulocytes 0.1 10^3/uL (0-0.05); Absolute Lymphocytes 0.7 10^3/uL (1.2-3.4); Absolute Monocytes 1.5 10^3/uL (0.1-0.6); Absolute Neutrophils 10.3 10^3/uL (1.4-6.5); Nucleated Red Blood Cells % 0 % (-)
[2024-06-12 18:16] LABS: Glucose - Point of Care 178 mg/dl (70-99)
[2024-06-12 18:29] LABS: Iron 25 ug/dl (49-181)
[2024-06-12 18:38] LABS: Percent Saturation 13 % (20-50); Total Iron Binding Capacity 184 ug/dl (261-462)
--- NOTE | 2024-06-12 19:00 | CON.CAR ---
Consultation
Consultation Request
Date/Time Consultation Requested: 06/12/24
Date/Time Consultation Performed: 06/12/24
Requesting Provider: Hospitalist
Performing Provider: Dr Orlando Le
Reason for Consultation: Pericardial effusion, hypotension, concern for cardiac tamponade
Medical History
-
Chief Complaint: Fall, altered mental status
History of Present Illness:
Primary Tool Maker Bench:
Dr Mannie Uriarte
He gomez recently transferred his care from [place] to the [facility].
He has h/o persistent (permanent?) AF. Watchman 06/2021 with post 6 month and 12 month TOREY without leak and is now on aspirin ([facility]) . He had GI bleeding. TOREY 2022 with normal EF% and no significant valvular disease.�
Medical records also indicate h/o GLORIA (on CPAP), HTN, DM, hypothyroidism, colon cancer s/p colectomy and most recently s/p LTKA 05/17/24 at .
He presented to the ED after multiple falls over the last 2 days, denies head injury or loss of consciousness.
He and his son describe that twice yesterday he fell after sitting on toilet for a prolonged period of time, his legs became numb, wehen he stodd he fell over - no LOC
Today he had a mechanical fall while walking - no LOC
Upon arrival to ED he was mildly tachycardic, tachypneic and hypotensive. Afebrile. Hypotensive with quick response to IVFs fluids.
Initial labs with WBC 12.6, hemoglobin 9.5, creatinine 2.0, BUN 57, albumin 2.7, D-dimer 4.75. Chest x-ray showed small bilateral pleural effusions. Lower extremity venous ultrasound without signs of DVTs. CTA thorax PE study did not show any
evidence of pulmonary emboli, showed a moderate pericardial effusion and small bilateral pleural effusions. ECG showed AF with RVR, low voltage QRS.
Cardiology is consulted regarding CT finding of pericardial effusion.
Diagnostic Imaging This presentation:
CXR: Low lung volumes. Small bilateral pleural effusions. No focal consolidation or pneumothorax. The cardiac silhouette is enlarged
Duplex ultrasound examination of both lower extremities: No sonographic evidence for lower extremity venous thrombosis.
CTA Chest:
No evidence of central, lobar or segmental pulmonary embolism.
Moderate pericardial effusion which is new from prior examination (02/19/24).
Small bilateral pleural effusions with adjacent atelectasis.
PMH:
Persistent/permanent AF, rate controlled
H/O GI bleeding
Anemia
Watchman YANICK occlusion ([place]) 06/2021 with post 6 month and 12 month TOREY without leak and is now on aspirin
GLORIA, on CPAP
DM
HTN
Hypothyroidism
Colon cancer s/p colectomy at 2023
s/p LTKA 05/17/24 at .
Social History
Tobacco: Non-Smoker
Alcohol: Other (rare)
Drug: None
Living: Alone
Family History
Family History: Reviewed & Not Pertinent
Allergies / Home Medications
Allergy/AdvReac Type Severity Reaction Status Date / Time
rivaroxaban [From Xarelto] Allergy bleeding Verified 05/17/24 06:59
�Medication �Instructions �Recorded �Confirmed �Type
hydralazine 50 mg tablet 50 mg PO BID 03/24/17 06/12/24 History
tadalafil 20 mg tablet (Cialis) 5 mg PO DAILYPRN PRN Erectile 03/24/17 06/12/24 History
dysfunction
pantoprazole 40 mg tablet,delayed 40 mg PO DAILY 07/06/23 06/12/24 History
release (Protonix)
amlodipine 5 mg tablet 5 mg PO DAILY 07/24/23 06/12/24 History
carvedilol 25 mg tablet 25 mg PO BID 07/24/23 06/12/24 History
cholecalciferol (vitamin D3) 25 25 mcg PO DAILY 07/24/23 06/12/24 History
mcg (1,000 unit) tablet (Vitamin
D3)
levothyroxine 137 mcg tablet 137 mcg PO DAILY 07/24/23 06/12/24 History
azelastine 0.05 % eye drops 1 drp BOTH EYES BID 04/23/24 06/12/24 History
semaglutide 2 mg/dose (8 mg/3 mL) 2 mg SC BARBER 04/23/24 06/12/24 History
subcutaneous pen injector (Ozempic)
valsartan 320 mg tablet (Diovan) 320 mg PO DAILY 04/23/24 06/12/24 History
gabapentin 300 mg capsule 300 mg PO BID 05/10/24 06/12/24 History
Patient's Own Insulin Pump 1 dose SC .CONTINUOUS 06/12/24 06/12/24 History
acetaminophen 500 mg tablet 1,000 mg PO TIDPRN PRN mild pain 06/12/24 06/12/24 History
alprazolam 1 mg tablet 1 mg PO BID 06/12/24 06/12/24 History
aspirin 81 mg chewable tablet 81 mg PO BID 06/12/24 06/12/24 History
atorvastatin 40 mg tablet 40 mg PO DAILY 06/12/24 06/12/24 History
escitalopram oxalate 10 mg tablet 10 mg PO DAILY 06/12/24 06/12/24 History
fluticasone propionate 50 2 spray intranasal DAILY 06/12/24 06/12/24 History
mcg/actuation nasal
spray,suspension
therapeutic multivitamin 1 tab PO DAILY 06/12/24 06/12/24 History
Review of Systems
-
History Source: Patient and Family (son)
All other systems: Negative unless noted
Constitutional: No Symptoms
EENT: No Symptoms
Respiratory: No Symptoms
Cardiac: No Symptoms
Abdomen/GI: No Symptoms
: No Symptoms
Musculoskeletal: Other (falls)
Skin: No Symptoms
Neurological: No Symptoms
Endocrine: No Symptoms
Physical Exam
Vital Signs
Temp Pulse Resp BP Pulse Ox
97.8 F 110 23 109/66 93
04/02/25 11:08 06/12/24 17:22 06/12/24 17:22 06/12/24 17:21 06/12/24 15:30
Lab Results
06/12/24 11:53
06/12/24 11:53
Troponin I < 0.012 ng/ml 06/12/24 11:53
Gjp-C-Tamqckdzgmx Pept 1190 pg/ml 06/12/24 11:53
Physical Exam
General: Well Developed and Other (Obese)
HEENT: Normocephalic and Moist Mucous Membranes
Respiratory: Clear (b/l)
Cardiac: S1/S2, Irregular Rhythm and Murmur (03/18 AHSM, no rubs, nl PMI, no HJR, no JVD)
Breast: Deferred by me
GI: Soft, Non Tender, Non Distended, Normal Bowel Sounds and Other (Obese)
Rectal: Deferred by Provider
Musculoskeletal: No Clubbing, No Cyanosis and Edema (+ 2 b/l LE edema, Lefk knee surgical scar well healed)
Skin: Warm and Dry
Neuro: Awake, Alert, Oriented and Other (seems forgetful and confused regarding recent facts)
Psych: Calm
Impression / Plan
-
Primary Tool Maker Bench:
Dr Mannie Uriarte
Assessment:
He presents critically ill with hypotensive shock, resp distress and altered mental status
Pericardial effusion with cardiac tamponade
Pericardial effusion is new since 03/05 (CT 03/05 without effusion)
Etiology not certain
Hypovolemic shock which improved with aggressive IVF resuscitation
SAMI likely related to hypovolemia
Persistent/permanent AF, rate controlled
H/O GI bleeding
Anemia
Watchman YANICK occlusion ([place]) 06/2021 with post 6 month and 12 month TOREY without leak and is now on aspirin
GLORIA, on CPAP
DM
HTN
Hypothyroidism
Colon cancer s/p colectomy at 2023
s/p LTKA 05/17/24 at .
06/12/24: Preliminary ECHO finds small-mod sized circumferential pericardial effusion with no evidence of cardiac tamponade, Nl LV and RV size and function
Recommendations:
He has newly diagnosed pericardial effusion (not seen on CT of chest 03/05) without evidence for cardiac tamponade, small - moderate in size, circumferential, no TTE evidence of aortic dissection
He describes no recent resp or viral type systemic symptoms
Differential diagnosis includes infectious or idiopathic pericarditis and malignant (recent h/o colon CA) among others and he will need ongoing evaluation for etiology but no urgent need for pericardiocentesis.
Hold antiHTN drugs for now (Carvedilol, amlodipine, Valsartan)
Initially with RVR in AF, but HRs improved with IVFs
Resume Carvedilol when BP allows
Fluid resuscitation for marked volume depletion
Evaluation of worsened iron deficient anemia which may be related to surgical/post surgical bleeding or recurrent GI bleeding
Eventually and slowly add back ant-HTN drugs as BP and renal function allows
Will follow
Data Reviewed
-
EKG: Tracing Personally Visualized and interpreted
Radiology: Image Personally Visualized and interpreted, Report Reviewed by me and Discussed with Family
CT Scan: Image Personally Visualized and interpreted, Report Reviewed by me and Discussed with Family
Ultrasound: Report Reviewed by me
Medical Tests (Nuc Med, Echo etc): Image Personally Visualized and interpreted
Labs: Labs Reviewed by me, Discussed with Physician, Discussed with Nurse, Discussed with Patient and Discussed with Family
Old Records: Reviewed
Critical Care Time (in minutes): 46
Total Time Spent with Patient (in minutes): 35
[2024-06-12 20:10] LABS: Folate > 20.0 ng/ml (2.76-20); Vitamin B12 861 pg/ml (239-931)
[2024-06-12] MEDS: COREG 25 MG PO (20:42)
[2024-06-12] MEDS: NEURONTIN 300 MG PO (20:42)
[2024-06-12] MEDS: XANAX 1 MG PO (20:42)
[2024-06-12] MEDS: ZADITOR 1 DROP BOTH EYES (20:42)
[2024-06-12] MEDS: LOW STRENGTH ASPIRIN 81 MG PO (20:42)
[2024-06-12 20:50] LABS: Glucose - Point of Care 206 mg/dl (70-99)
[2024-06-12] MEDS: PT'S OWN INSULIN PUMP - HumaLOG SC (21:24)
[2024-06-12] MEDS: TYLENOL 1000 MG PO (21:37)
--- NOTE | 2024-06-12 21:50 | PTCARENOTE ---
Received patient from the ED on 2 liters NC. Pulsox high 80s -> placed on 4 liters. Patient has an insulin pump that is not working, battery changed in ED and now unable to connect to server programmer. call center trainer provider made aware and ordered sliding scale.
Consult placed to certified adaptive physical educator to manage insulin pump.
[2024-06-12] MEDS: LOPRESSOR 5 MG IV (22:21)
[2024-06-13] VITALS (12 sets, daily range): BP systolic 108–171; BP diastolic 63–104; PULSE 103–112; O2SAT 95; BMI 46.0
[2024-06-13 04:27] LABS: % Basophils 0.3 % (0-2); % Eosinophils 0.6 % (0-6); % Immature Granulocytes 1.1 % (0-0.5); % Monocytes 11.5 % (1.7-9.3); % Neutrophils 78.5 % (42.2-75.2); Absolute Eosinophils 0.1 10^3/uL (0-0.7); Absolute Immature Granulocytes 0.1 10^3/uL (0-0.05); Absolute Lymphocytes 0.9 10^3/uL (1.2-3.4); Absolute Monocytes 1.3 10^3/uL (0.1-0.6); Absolute Neutrophils 8.8 10^3/uL (1.4-6.5); Hematocrit 27.7 % (39.0-52.0); Mean Corp Hgb Conc. 32.5 g/dL (33.0-37.0); Mean Corpuscular Hgb 28.6 pg (27.0-31.0); Mean Corpuscular Volume 87.9 fL (80.0-94.0); Mean Platelet Volume 9.6 fL (7.4-10.4); Nucleated Red Blood Cells % 0 % (-); Platelet Count 360 10^3/uL (130-400); Red Blood Cell Count 3.15 10^6/uL (4.70-6.10); Red Cell Dist. Width 16.2 % (11.5-14.5); White Blood Cell Count 11.2 10^3/uL (4.8-10.8)
[2024-06-13 04:52] LABS: ALT (SGPT) 19 U/L (0-50); AST (SGOT) 19 U/L (17-59); Albumin 2.9 g/dl (3.5-5.0); Alkaline Phosphatase 134 U/L (38-126); Blood Urea Nitrogen 53 mg/dl (9-20); Calcium 8.7 mg/dl (8.4-10.2); Carbon Dioxide 19 mmol/L (22-30); Chloride 104 mmol/L (98-107); Estimated Creatinine Clearance 70 ml/min; Glucose 300 mg/dl (70-99); HDL Cholesterol 19 mg/dl; LDL Cholesterol, Calculated 47 mg/dl; Potassium 5.3 mmol/L (3.5-5.1); Sodium 136 mmol/L (135-145); Total Bilirubin 1.1 mg/dl (0.2-1.3); Total Cholesterol 83 mg/dl (50-199); Total Protein 5.7 g/dl (6.3-8.2); Triglyceride 89 mg/dl (10-149); Very Low Density Lipoprotein 17 mg/dl (0-30); eGFR 59.47
[2024-06-13 05:20] LABS: TSH Reflex To Free T4 1.99 uIU/ml (0.47-4.68)
[2024-06-13] MEDS: SYNTHROID 137 MCG PO (05:25)
[2024-06-13] MEDS: NSS 1000 IV (05:25)
[2024-06-13 07:29] LABS: Glucose - Point of Care 374 mg/dl (70-99)
[2024-06-13] MEDS: PT'S OWN INSULIN PUMP - HumaLOG 7 UNIT SC (08:41)
[2024-06-13] MEDS: LOW STRENGTH ASPIRIN 81 MG PO ×2 (08:42→19:53)
[2024-06-13] MEDS: PROTONIX 40 MG PO (08:42)
[2024-06-13] MEDS: COREG 25 MG PO ×2 (08:42→19:53)
[2024-06-13] MEDS: XANAX 1 MG PO ×2 (08:42→19:53)
[2024-06-13] MEDS: LEXAPRO 10 MG PO (08:43)
[2024-06-13] MEDS: THERAGRAN 1 TABLET PO (08:43)
[2024-06-13] MEDS: VITAMIN D3 (cholecalciferol) 25 MCG PO (08:43)
[2024-06-13] MEDS: NEURONTIN 300 MG PO ×2 (08:43→19:53)
[2024-06-13] MEDS: LIPITOR 40 MG PO (08:43)
[2024-06-13] MEDS: ZADITOR 1 DROP BOTH EYES ×2 (08:44→20:04)
--- NOTE | 2024-06-13 09:58 | PN.DE.MGMTRT ---
Insulin Management
- -
06/13/2024 Diabetes Management Insulin pump
Patient admitted 06/12 s/p fall, with acute tachypnea, tachycardia, hypotension, hypovolemic shock, altered mental status, pericardial effusion, bilateral pleural effusions. PMH: colon ca s/p colectomy, hypothyroid, GERD, HTN, HLD, afib post
watchman, anxiety. Prior to admission patient using OmniPod with DexCom G7 insulin pump with Humalog insulin. A1C 6.3%.
Patient is awake alert and oriented sitting oob in chair. Able to discuss diabetes care. Patient has seen endocrine for [address] [place]
Patient has two basal profiles, somehow he was running the Prednisone profile which is 5 units per hour basal rate. Changed to NORMAL basal profile, in AUTO mode.
Pump settings as follows:
12am 2,25
5am 2.75
3pm 2.5
7pm 3.75
10:30 PM 2.75
24 hour basal total 66 units
Patient does not use the pump to calculate bolus for meals or correction. He assess his food and decides how much to take.
He has the pump worksheet at the bedside and is filling it out.
Discussed with nurse.
Will follow
Diabetes History
- -
Type of Diabetes: 1
Pre-Admission Diabetes Regimen
06/12/24 06/13/24
11:53 04:03
Creatinine 2.0 H 1.3
Insulin Pump Settings
IP Diabetes Regimen
06/12/24 06/12/24 06/12/24
11:12 11:53 18:14
Glucose 128 H
POC Glucose 138 H 178 H
06/12/24 06/13/24 06/13/24
20:38 04:03 07:18
Glucose 300 H
POC Glucose 206 H 374 H
Patient Education
[2024-06-13 10:24] LABS: Urine Sodium 31 mmol/L (30-90)
[2024-06-13 10:53] LABS: Glycohemoglobin (HgbA1c) 6.3 % (4.0-5.6)
[2024-06-13] MEDS: PT'S OWN INSULIN PUMP - HumaLOG 3.5 UNIT SC (12:00)
[2024-06-13 12:03] LABS: Glucose - Point of Care 357 mg/dl (70-99)
--- NOTE | 2024-06-13 12:57 | W.PN.HOSP.TC ---
Addendum entered and electronically signed by Brian Redding DO 06/14/24 11:10:
CDI: Metabolic encephalopathy likely secondary to hypotension on arrival. Has since improved with euvolemia
Original Note:
Today's Communication/Plan
-
Check chest x-ray and ABG
Hold amlodipine/hydralazine/valsartan
Continue IVF and trend BMP
Consider repeat echo on 06/14
Wean oxygen
Assessment / Plan
Assessment / Plan
#Acute hypoxemic respiratory failure
-Unclear cause, differentials include aspiration versus undiagnosed COPD versus GLORIA/OHS
-CT on arrival did not show any signs of PE, did not mention consolidation or PTX either
-He did have small bilateral pleural effusions on arrival, was noted to have some wheezing in the ED
-As of this morning remains on 4 L oxygen, SpO2 in the mid 90s
-Will order repeat chest x-ray to assess pleural effusions
-Order ABG to assess for underlying hypercapnia
-SpO2 goal >90% for now, wean as appropriate
-As needed DuoNebs
#Prerenal acute kidney injury
#Hypotension
-Suspect multifactorial etiology with poor intake, hypotension with his BP regimen
-Presented with systolic blood pressure in the 80s, creatinine at 2.0 with baseline near 1
-Home antihypertensives were held, has been reinitiated on carvedilol
-Renal function improving, creatinine down to 1.3 with IVF
-Continue maintenance IVF and encourage oral hydration
-Hold antihypertensive agents, resume sequentially if BP worsens
-Trend daily BMP, avoid nephrotoxins
#Small pericardial effusion
-CT on arrival showed moderate pleural effusion, follow-up TTE showed small effusion
-No signs of tamponade physiology on echo, blood pressure is improved with IVF
-Denies recent viral prodrome, though cannot rule out viral etiology completely
-Does not have friction rub on my exam, no findings of pericarditis on ECG, no positional chest pain
-Cardiology following, will defer option to initiate colchicine and NSAIDs to their discretion
-Consider repeating echocardiogram on 06/14
#Normocytic anemia
-Acute to subacute, hemoglobin and April was near 14, presented with hemoglobin 9.5-9.0
-Iron studies consistent with anemia of chronic disease, high ferritin and low TIBC
-No obvious signs of bleeding at this time; will monitor for bloody stool and other sources
-With elevated D-dimer, no signs of thrombosis, cannot rule out recurrent malignancy
-Trend CBC for now
#AF with RVR
#AF s/p Watchman
-Home regimen includes carvedilol 25 mg twice daily; no longer on AC due to bleeding
-Status post Watchman device, remains on baby aspirin which is currently twice daily for DVT prophylaxis
-Upon arrival head heart rate between 100-120/min, remained hemodynamically stable after initial IVF
-Suspect RVR is associated with hypovolemic state, receiving IVF as above
-Continue with carvedilol at current dose, hold for hypotension
-Monitor on telemetry
#Leukocytosis
-Unclear cause, white cell count 12.6 on arrival, down to 11.2 this morning without antibiotics
-Question if this is reactive to minor trauma from his fall versus related to recurrence of his cancer
-Will trend CBC and temperature curve for now, hold antibiotics
#IDDM with continuous glucometer
-A1c here 6.3%; currently well-controlled with glucometer regimen
-Diabetes team following for CGM management
-Follows outpatient with endocrinology in [place]
#Elevated D-dimer
#H/O colon cancer s/p robotic colectomy
-Patient has leukocytosis as well, question if he has cancer recurrence
-CTA thorax was without signs of pulmonary emboli, no signs of DVT on ultrasound
-Should have outpatient follow-up with oncology/PCP for further investigation
#S/p left total knee arthroplasty on 05/17/2024
#DVT prophylaxis with 81 mg aspirin twice daily
-Remains on twice daily baby aspirin
-Surgical scar appears well-approximated, no signs of infection
DVT prophylaxis: Twice daily aspirin
Diet: Carbohydrate controlled
CODE STATUS: Full code
Anticipated Discharge: > 48 hours
Subjective/Interval History
-
Date of Service: June 13, 2024
Seen and examined at the bedside. No acute events reported overnight. AFVSS this morning with heart rate low 100s
Echocardiogram yesterday without signs of tamponade, showed small effusion. Renal function improved with IVF
Patient states he feels much better this morning, denies any new complaints
Objective Data
-
Labs:
Laboratory Results
06/13/24
04:03
WBC 11.2 H
Hgb 9.0 L
Hct 27.7 L
Plt Count 360
Sodium 136
Potassium 5.3 H
Chloride 104
Carbon Dioxide 19 L
BUN 53 H
Creatinine 1.3
Glucose 300 H
Calcium 8.7
Total Bilirubin 1.1
AST 19
ALT 19
Alkaline Phosphatase 134 H
Vital Signs:
Vital Signs
Temp Pulse Resp BP Pulse Ox
98.0 F 105 25 117/82 93
06/13/24 11:19 06/13/24 08:00 06/13/24 08:00 06/13/24 08:00 06/13/24 08:15
I&O
06/12/24 06/13/24 06/14/24
06:59 06:59 06:59
Intake Total 1680 / 1680
Output Total 400 / 400
Balance 1280 / 1280
Review of Systems
-
History Source: Patient
All other systems: Reviewed and negative
Physical Exam
-
General: Well Developed, No Apparent Distress and Morbidly Obese
HEENT: Normocephalic, Atraumatic, Moist Mucous Membranes and Anicteric
Respiratory: Clear to Auscultation and Non Labored Respirations; Negative Wheezes, Rales or Rhonchi
Cardiac: S1/S2, Irregular Rhythm and Tachycardic; Negative Murmur, Rub or Gallop
GI: Soft, Nontender, Nondistended and Normal Bowel Sounds
Musculoskeletal: No Clubbing, No Cyanosis and Other (1+ edema)
Skin: Warm, Dry and Normal Turgor; Negative Rash
Neuro: AO x 3 and Nonfocal/Grossly Intact; Negative Tremors
Psych: Calm
Data Reviewed
-
Labs: Labs Reviewed by me and Discussed with Patient
--- NOTE | 2024-06-13 13:19 | W.PN.CARDCBS ---
Addendum entered and electronically signed by Chandana Cisneros MD 06/13/24 16:31:
I saw and examined the patient.
The Superintendent Container Terminal's note was reviewed and I agree with the note.
Comment:
GEN: No distress, awake, Ox3
HEENT: supple, anicteric, mmm
LUNGS: CTA, no wheezes/rales
CV: Reg, S1/S2, 1/6 syst LSB, no gallop
ABD: soft, BS+, NT/ND
EXT: No edema
NEURO: Gross non-focal
SKIN: No rash
Plan:
Clinically has improved. Creatinine down to 1.3 and blood pressure improved status post IV fluids.
Will repeat limited echo in a.m. to reevaluate pericardial effusion.
Colon cancer does not typically go to the pericardium.
Etiology of pericardial fusion remains unclear. pericarditis? inflammatory? Check sed rate.
He is not anticoagulated with history of watchman. Continue rate control strategy for A-fib with carvedilol and aspirin.
Would hold on pericardiocentesis for now.
Original Note:
Today's Communication / Plan
-
Recheck echo in AM
BP meds on hold
Impression / Plan
-
Primary Lead Infrastructure Architect: Dr. Uriarte
Assessment:
Admitted with acute hypoxic respiratory failure and hypotension 06/12/24
Acute hypoxic respiratory failure
Multifactorial hypotension
Pericardial effusion
Hypovolemic
SAMI
Permanent Afib
Not chronically anticoagulated due to watchman in place
s/p Watchman YANICK occlusion ([place])for h/o recurrent GIB 06/2021
with post 6 month and 12 month TOREY without leak and is now on aspirin
Anemia
GLORIA, on CPAP
DM
HTN
Hypothyroidism
Colon cancer s/p colectomy at 2023
s/p LTKA 05/17/24 at .
Echo 06/12/24: EF 65 to 70%, normal RV size and function, mild TR with PAP 50 mmHg, moderate pericardial effusion without evidence of hemodynamic compromise, mildly dilated aortic root sinus of Valsalva is 3.9 cm, no prior echo for comparison
Plan:
-Patient came to ER yesterday with falls and was admitted with multifactorial hypotension and acute hypoxic respiratory failure.
-Hypotension thought to be multifactorial including hypovolemia, possible aspiration and possibly the pericardial effusion although no evidence of tamponade.
-Small B/L pleural effusions on CT chest 06/12/24. pro-BNP 1190. EF 65% by echo. Patient was not taking a diuretic prior to admission.
-Patient has received 3 L IVFs since admission. Cre was 2.0 on 06/12/24 and improved to 1.3 on 06/13/24.
-Echo noted above with moderate pericardial effusion, but no evidence of hemodynamic compromise.
-Repeat echo limited study in AM to reassess pericardial effusion. No plans for pericardiocentesis at this time.
-Etiology of effusion could be infectious vs idiopathic vs pericarditis vs malignant (recent h/o colon CA). If patient has pericardiocentesis then fluid studies will be sent.
-BP 110/71 and palpation BP meds held.
-Outpatient dose of Coreg 25 mg BID is on hold due to hypotension
-Outpatient dose of amlodipine 5 mg daily is on hold due to hypotension
-Outpatient dose of hydralazine 50 mg BID is on hold due to hypotension
-Patient with known permanent Afib and is not on OAC due to h/o recurrent GIB.
-Hgb trending down and patient has a h/o GIB
Progress Note - Lead Infrastructure Architect
Subjective
Date of Service: June 13, 2024
He feels better after IVFs
Objective
Labs:
06/13/24 04:03
06/13/24 04:03
Labs
Hgb 9.0 g/dL (13.0-18.0) L 06/13/24 04:03
Hct 27.7 % (39.0-52.0) L 06/13/24 04:03
Plt Count 360 10^3/uL (130-400) 06/13/24 04:03
Sodium 136 mmol/L (135-145) 06/13/24 04:03
Potassium 5.3 mmol/L (3.5-5.1) H 06/13/24 04:03
BUN 53 mg/dl (9-20) H 06/13/24 04:03
Creatinine 1.3 mg/dL (0.7-1.3) 06/13/24 04:03
Glucose 300 mg/dl (70-99) H 06/13/24 04:03
Troponins
06/12/24
11:53
Troponin I < 0.012
Vital Signs and I&O:
Vital Signs
Temp Pulse Resp BP Pulse Ox
98.0 F 95 21 110/72 96
06/13/24 11:19 06/13/24 12:01 06/13/24 12:01 06/13/24 12:00 06/13/24 10:49
Vital Signs
Temp Pulse Resp BP Pulse Ox
98.0 F 95 21 110/72 96
06/13/24 11:19 06/13/24 12:01 06/13/24 12:01 06/13/24 12:00 06/13/24 10:49
Intake & Output
06/11/24 06/12/24 06/13/24 06/14/24
06:59 06:59 06:59 06:59
Intake Total 1680 / 1680
Output Total 400 / 400
Balance 1280 / 1280
Physical Exam
Physical Exam
GEN: NAD
HEENT: MMM
LUNGS: 4 L NC. No wheeze
CV: Reg, S1/S2, 1/6 AHSM
ABD: ND
EXT: +1-2 B/L LE edema
NEURO: Gross non-focal
SKIN: No rash
[2024-06-13 13:36] LABS: B.E. -1.5 mmol/L; HCO3 23.7 mmol/L (21-28); O2 Saturation % 92.8 % (94-98); PCO2 41 mmHg (35-48); PO2 61 mmHg (83-108); pH 7.37 (7.35-7.45)
[2024-06-13 13:37] LABS: O2 Therapy 4L
[2024-06-13 17:00] LABS: Glucose - Point of Care 276 mg/dl (70-99)
[2024-06-13] MEDS: PT'S OWN INSULIN PUMP - HumaLOG 16 UNIT SC (17:03)
--- NOTE | 2024-06-13 19:05 | PTCARENOTE ---
OOB all day, sao2 when awake on RAIR 94%- does dip to 89% when dozing this afternoon in the chair. Placed back on NC. Denies pain. Using own Insulin pump- documented per protocol. Appetite very good. Gets onto bsc with 1 assist- used 5-6 times
today has explosive flatus w small amt loose travis stool. Abdomen morbidly obese, frequently misses the commode/urinal urinates on floor- orangey kimber in color. IVF infusing.
[2024-06-13] MEDS: PT'S OWN INSULIN PUMP - HumaLOG SC (22:28)
[2024-06-13 23:32] LABS: Glucose - Point of Care 207 mg/dl (70-99)
[2024-06-14] VITALS (19 sets, daily range): BP systolic 104–175; BP diastolic 70–102; PULSE 102–130; O2SAT 94; BMI 46.9
[2024-06-14] MEDS: SYNTHROID 137 MCG PO (04:34)
[2024-06-14 04:35] LABS: % Basophils 0.3 % (0-2); % Eosinophils 1.9 % (0-6); % Immature Granulocytes 0.7 % (0-0.5); % Lymphocytes 6.9 % (20.5-51.1); % Neutrophils 79.2 % (42.2-75.2); Absolute Eosinophils 0.2 10^3/uL (0-0.7); Absolute Immature Granulocytes 0.1 10^3/uL (0-0.05); Absolute Lymphocytes 0.8 10^3/uL (1.2-3.4); Absolute Monocytes 1.3 10^3/uL (0.1-0.6); Absolute Neutrophils 9.1 10^3/uL (1.4-6.5); Hematocrit 28.1 % (39.0-52.0); Hemoglobin 9.3 g/dL (13.0-18.0); Mean Corp Hgb Conc. 33.1 g/dL (33.0-37.0); Mean Corpuscular Hgb 28.6 pg (27.0-31.0); Mean Corpuscular Volume 86.5 fL (80.0-94.0); Mean Platelet Volume 9.4 fL (7.4-10.4); Nucleated Red Blood Cells % 0 % (-); Platelet Count 372 10^3/uL (130-400); Red Blood Cell Count 3.25 10^6/uL (4.70-6.10); White Blood Cell Count 11.5 10^3/uL (4.8-10.8)
[2024-06-14 05:01] LABS: ALT (SGPT) 29 U/L (0-50); AST (SGOT) 35 U/L (17-59); Alkaline Phosphatase 145 U/L (38-126); Blood Urea Nitrogen 49 mg/dl (9-20); Calcium 9.1 mg/dl (8.4-10.2); Carbon Dioxide 21 mmol/L (22-30); Chloride 107 mmol/L (98-107); Erythrocyte Sed Rate 88 mm/hour (0-20); Estimated Creatinine Clearance 116 ml/min; Glucose 147 mg/dl (70-99); Potassium 4.9 mmol/L (3.5-5.1); Sodium 138 mmol/L (135-145); Total Bilirubin 0.9 mg/dl (0.2-1.3); eGFR > 60.00
[2024-06-14] MEDS: PT'S OWN INSULIN PUMP - HumaLOG 2.75 UNIT SC (05:12)
[2024-06-14 07:34] LABS: Glucose - Point of Care 96 mg/dl (70-99)
[2024-06-14] MEDS: NEURONTIN 300 MG PO ×2 (07:38→21:11)
[2024-06-14] MEDS: PROTONIX 40 MG PO (07:38)
[2024-06-14] MEDS: LEXAPRO 10 MG PO (07:38)
[2024-06-14] MEDS: LIPITOR 40 MG PO (07:38)
[2024-06-14] MEDS: COREG 25 MG PO ×2 (07:39→21:10)
[2024-06-14] MEDS: LOW STRENGTH ASPIRIN 81 MG PO ×2 (07:39→21:10)
[2024-06-14] MEDS: XANAX 1 MG PO ×2 (07:39→21:13)
[2024-06-14] MEDS: THERAGRAN 1 TABLET PO (07:39)
[2024-06-14] MEDS: VITAMIN D3 (cholecalciferol) 25 MCG PO (07:39)
[2024-06-14] MEDS: ZADITOR 1 DROP BOTH EYES ×2 (07:51→21:11)
[2024-06-14] MEDS: PT'S OWN INSULIN PUMP - HumaLOG 5 UNIT SC (08:11)
--- NOTE | 2024-06-14 08:54 | PN.DE.MGMTRT ---
Insulin Management
- -
06/14/2024: Diabetes Management Insulin pump
Patient admitted 06/12 s/p fall, with acute tachypnea, tachycardia, hypotension, hypovolemic shock, altered mental status, pericardial effusion, bilateral pleural effusions. PMH: colon ca s/p colectomy, hypothyroid, GERD, HTN, HLD, afib post
watchman, anxiety. Prior to admission patient using OmniPod with DexCom G7 insulin pump with Humalog insulin. A1C 6.3%.
Patient is awake alert and oriented sitting oob in chair. Able to discuss diabetes care. Patient has seen endocrine for 53 years in [place].
Patient has two basal profiles, somehow he was running the Prednisone profile which is 5 units per hour basal rate. Changed to NORMAL basal profile, in AUTO mode.
Pump settings as follows:
12am 2,25
5am 2.75
3pm 2.5
7pm 3.75
10:30 PM 2.75
24 hour basal total 66 units
Patient does not use the pump to calculate bolus for meals or correction. He assess his food and decides how much to take.
Noted for persistent Hyperglycemia yesterday, pt states he was in and out of procedure rooms and was not able to administer insulin via pump during those periods. Glucose has improved, FBG 147 (v), 96 POC this AM and 94 before lunch. Will make no
changes to basal rate settings.
He has the pump worksheet at the bedside and is filling it out.
Discussed with nurse. Will cont to follow
Diabetes History
- -
Type of Diabetes: 1
Pre-Admission Diabetes Regimen
06/14/24
04:22
Creatinine 0.8
Lab Results
Hemoglobin A1c 6.3 % (4.0-5.6) H 06/13/24 04:03
Insulin Pump Settings
IP Diabetes Regimen
06/13/24 06/13/24 06/13/24
11:49 16:49 23:21
Glucose
POC Glucose 357 H 276 H 207 H
06/14/24 06/14/24
04:22 07:21
Glucose 147 H
POC Glucose 96
Meal type: Dinner
Meal type: Lunch
Meal type: Breakfast
Amount consumed: 100%
Amount consumed: 100%
Amount consumed: 100%
Patient Education
--- NOTE | 2024-06-14 10:32 | PN.CDI ---
CDI
- -
CDI:
Physician Documentation Request
Admit Date: 06/12/24 18:55
Dear Doctor Vahid,
Please review the following and provide your response in the progress notes.
Clinical Indicators:
- 4/2 H&P 'Acute confusion unclear etiology possible neurological'
- 'Mostly alert and oriented though did have some signs of encephalopathy'
- 'He is confused...He is having difficulty following commands ...needs reminder of what he is looking for'
- Admit with jessica, hypotension, acute hypoxic respiratory failure, pericardial and pleural effusion
Please specify the known or suspected type of the documented encephalopathy.
Metabolic
Toxic
Toxic metabolic
Due to a specified condition (such as UTI, hyponatremia, CVA etc)
Other (please specify)
Use of terms such as suspected, likely, concern for, or probable (associated with a specific diagnosis that is being evaluated, monitored, or treated as if it exists) are acceptable and can be coded in the inpatient setting, when documented at the
time of discharge.
Thank you,
Ludy Garg RN
CDI Specialist
Please use your independent medical judgment in providing your response.
--- NOTE | 2024-06-14 10:50 | W.PN.CARDCBS ---
Addendum entered and electronically signed by Brian Watters MD 06/14/24 11:53:
I saw and examined the patient.
The PHLEBOTOMY SERVICES TECHNICIAN or PA's note was reviewed and I agree with the note.
Comment: General: Well developed, well nourished in NAD.
Neck: Supple, no JVD, HJR, carotids +2 B/L, no bruits bilaterally.
Heart: Non displaced PMI, RRR, no murmurs, No S3, S4, no rubs.
Lungs: Scattered wheezes
Extremities: No clubbing, cyanosis or edema bilaterally.
Neuro: Grossly nonfocal, awake, alert and oriented x3.
He remains on 2 L of oxygen for unclear reasons. Will try a dose of IV Lasix. Recheck echo to reassess pericardial effusion. Stable cardiology status for discharge when able to come off oxygen. Could be a pulmonary component to hypoxia given
wheezes
Original Note:
Today's Communication / Plan
-
Repeat limited echo today
Continue rate control strategy for A-fib with carvedilol
No need for anticoagulation as patient has history of watchman. Continue aspirin
Give IV Lasix x 1 today
Impression / Plan
-
Primary Flap Maker: Dr. Uriarte
Assessment:
Admitted with acute hypoxic respiratory failure and hypotension 06/12/24
Acute hypoxic respiratory failure, unclear etiology
Multifactorial hypotension
Pericardial effusion
Hypovolemic
SAMI
Permanent Afib
Not chronically anticoagulated due to watchman in place
s/p Watchman YANICK occlusion ([place])for h/o recurrent GIB 06/2021
with post 6 month and 12 month TOREY without leak and is now on aspirin
Anemia
GLORIA, on CPAP
DM
HTN
Hypothyroidism
Colon cancer s/p colectomy at 2023
s/p LTKA 05/17/24 at .
Echo 06/12/24: EF 65 to 70%, normal RV size and function, mild TR with PAP 50 mmHg, moderate pericardial effusion without evidence of hemodynamic compromise, mildly dilated aortic root sinus of Valsalva is 3.9 cm, no prior echo for comparison
Echo limited 06/14/2024: Pending
Plan:
-Patient came to ER 06/12/2024 with falls and was admitted with multifactorial hypotension and acute hypoxic respiratory failure.
-Hypotension thought to be multifactorial including hypovolemia, possible aspiration and possibly from moderate pericardial effusion although no evidence of tamponade.
-Small B/L pleural effusions on CT chest 06/12/24. pro-BNP 1190. EF 65% by echo. Patient was not taking a diuretic prior to admission.
-Patient has received 3 L IVFs since admission. Cre was 2.0 on 06/12/24 and improved to 1.3 on 06/13/24, 0.8 on 06/14/24.
-Echo noted above with moderate pericardial effusion, but no evidence of hemodynamic compromise.
-Repeat echo limited study today to reassess pericardial effusion. No plans for pericardiocentesis at this time.
-Etiology of effusion could be infectious vs idiopathic vs pericarditis vs malignant (recent h/o colon CA, less likely). If patient has pericardiocentesis then fluid studies will be sent.
-Sed rate 88; consider initiation of colchicine
-Continue Coreg 25 mg BID
-Outpatient dose of amlodipine 5 mg daily, hydralazine 50 mg BID and valsartan 320 mg on hold due to hypotension. If blood pressure remains stable over next 24 hours could consider resuming lower dose of valsartan 80 mg
-Patient with known permanent Afib. Patient has history of Watchman due to history of GI bleed and therefore and is not on OAC. Continue aspirin 81 mg
-Hgb 9.0-9.5, currently 9.3. Continue to trending down as patient has a h/o GIB; hemoglobin was 14.3 in April 2024. However patient did have knee replacement 05/17/2024 and no hemoglobin was repeated after
-Patient does appear to have some mild volume overload will give 1 dose of IV Lasix 40 mg today and assess response
HPI 06/12/2024:
He was recently transferred his care from [facility].
He has h/o persistent (permanent?) AF. Watchman 06/2021 with post 6 month and 12 month TOREY without leak and is now on aspirin ([place]) . He had GI bleeding. TOREY 2022 with normal EF% and no significant valvular disease.�
Medical records also indicate h/o GLORIA (on CPAP), HTN, DM, hypothyroidism, colon cancer s/p colectomy and most recently s/p LTKA 05/17/24 at .
He presented to the ED after multiple falls over the last 2 days, denies head injury or loss of consciousness.
He and his son describe that twice yesterday he fell after sitting on toilet for a prolonged period of time, his legs became numb, wehen he stodd he fell over - no LOC
Today he had a mechanical fall while walking - no LOC
Upon arrival to ED he was mildly tachycardic, tachypneic and hypotensive. Afebrile. Hypotensive with quick response to IVFs fluids.
Initial labs with WBC 12.6, hemoglobin 9.5, creatinine 2.0, BUN 57, albumin 2.7, D-dimer 4.75. Chest x-ray showed small bilateral pleural effusions. Lower extremity venous ultrasound without signs of DVTs. CTA thorax PE study did not show any
evidence of pulmonary emboli, showed a moderate pericardial effusion and small bilateral pleural effusions. ECG showed AF with RVR, low voltage QRS.
Cardiology is consulted regarding CT finding of pericardial effusion.
Progress Note - Flap Maker
Subjective
Date of Service: June 14, 2024
pt seen and examined. Patient sitting in recliner on 2 L of oxygen. Reports he is feeling better but still gets winded with activity.
Objective
Labs:
06/14/24 04:22
06/14/24 04:22
Labs
Hgb 9.3 g/dL (13.0-18.0) L 06/14/24 04:22
Hct 28.1 % (39.0-52.0) L 06/14/24 04:22
Plt Count 372 10^3/uL (130-400) 06/14/24 04:22
Sodium 138 mmol/L (135-145) 06/14/24 04:22
Potassium 4.9 mmol/L (3.5-5.1) 06/14/24 04:22
BUN 49 mg/dl (9-20) H 06/14/24 04:22
Creatinine 0.8 mg/dL (0.7-1.3) 06/14/24 04:22
Glucose 147 mg/dl (70-99) H 06/14/24 04:22
Troponins
06/12/24
11:53
Troponin I < 0.012
Vital Signs and I&O:
Vital Signs
Temp Pulse Resp BP Pulse Ox
98.7 F 110 21 116/77 97
06/14/24 07:10 06/14/24 10:28 06/14/24 10:28 06/14/24 10:28 06/14/24 10:28
Vital Signs
Temp Pulse Resp BP Pulse Ox
98.7 F 110 21 116/77 97
06/14/24 07:10 06/14/24 10:28 06/14/24 10:28 06/14/24 10:28 06/14/24 10:28
Intake & Output
06/12/24 06/13/24 06/14/24 06/15/24
06:59 06:59 06:59 06:59
Intake Total 1680 / 1680 1280 / 1280 480 / 480
Output Total 400 / 400 750 / 750 400 / 400
Balance 1280 / 1280 530 / 530 80 / 80
Physical Exam
Physical Exam
GEN: No distress, awake, Ox3, sitting in chair wearing oxygen
HEENT: supple, anicteric, mmm
LUNGS: Decreased breath sound at left base otherwise CTA, no wheezes/rales; wearing 2 L of oxygen via nasal cannula
CV: Reg, S1/S2, no murmur, rub or gallop
ABD: soft, BS+, NT/ND, obese
EXT: +2 lower extremity edema bilaterally, no clubbing or cyanosis
NEURO: Gross non-focal
SKIN: No rash, warm, dry, pink
--- NOTE | 2024-06-14 11:00 | W.PN.HOSP.TC ---
Today's Communication/Plan
-
Follow-up repeat echo
Follow-up repeat chest x-ray
Incentive spirometer
Consider transition to metoprolol versus rhythm control
Wean oxygen
Assessment / Plan
Assessment / Plan
#Acute hypoxemic respiratory failure
-Unclear cause, differentials include aspiration, GLORIA/OHS, deconditioning; required 4 L max
-CT on arrival did not show any signs of PE, did not mention consolidation or PTX either; no signs of hypercapnia
-He did have small bilateral pleural effusions on arrival, was noted to have some wheezing in the ED
-As of this morning remains on 2 L oxygen, SpO2 in the mid 90s
-Will order repeat chest x-ray to assess pleural effusions
-SpO2 goal >90% for now, wean as appropriate
-As needed DuoNebs, encourage OOB
-Start incentive spirometer
#Prerenal acute kidney injury
#Hypotension
-Suspect multifactorial etiology with poor intake, hypotension with his BP regimen
-Presented with systolic blood pressure in the 80s, creatinine at 2.0 with baseline near 1
-Has been reinitiated on carvedilol; amlodipine and hydralazine held
-Renal function improving, creatinine down to 1.3 with IVF
-Hold antihypertensive agents, resume sequentially if BP worsens
-Trend daily BMP, avoid nephrotoxins, encourage p.o. hydration
#Small pericardial effusion
-CT on arrival showed moderate pleural effusion, follow-up TTE showed small effusion
-No signs of tamponade physiology on echo, blood pressure is improved with IVF
-Denies recent viral prodrome, though cannot rule out viral etiology completely
-Does not have friction rub on my exam, no findings of pericarditis on ECG, no positional chest pain
-Cardiology following, will defer option to initiate colchicine and NSAIDs to their discretion
-Follow-up repeat echocardiogram from today to reassess effusion
#Normocytic anemia
-Acute to subacute, hemoglobin and February was near 14, presented with hemoglobin 9.5-9.0
-Iron studies consistent with anemia of chronic disease, high ferritin and low TIBC
-No obvious signs of bleeding at this time; will monitor for bloody stool and other sources
-With elevated D-dimer, no signs of thrombosis, cannot rule out recurrent malignancy
-Trend CBC for now
#AF with RVR
#AF s/p Watchman
-Home regimen includes carvedilol 25 mg twice daily; no longer on AC due to bleeding
-Status post Watchman device, remains on baby aspirin which is currently twice daily for DVT prophylaxis
-Upon arrival head heart rate between 100-120/min, remained hemodynamically stable after initial IVF
-Suspect RVR is associated with hypovolemic state; s/p IV fluids
-Consider transition from carvedilol to metoprolol versus rhythm control
-Monitor on telemetry
#Leukocytosis
-Unclear cause, white cell count 12.6 on arrival, down to 11.5 this morning without antibiotics
-Question if this is reactive to minor trauma from his fall versus related to recurrence of his cancer
-Will trend CBC and temperature curve for now, hold antibiotics
#IDDM with continuous glucometer
-A1c here 6.3%; currently well-controlled with glucometer regimen
-Diabetes team following for CGM management
-Follows outpatient with endocrinology in [place]
#Elevated D-dimer
#H/O colon cancer s/p robotic colectomy
-Patient has leukocytosis as well, question if he has cancer recurrence
-CTA thorax was without signs of pulmonary emboli, no signs of DVT on ultrasound
-Should have outpatient follow-up with oncology/PCP for further investigation
#S/p left total knee arthroplasty on 05/17/2024
#DVT prophylaxis with 81 mg aspirin twice daily
-Remains on twice daily baby aspirin
-Surgical scar appears well-approximated, no signs of infection
DVT prophylaxis: Twice daily aspirin
Diet: Carbohydrate controlled
CODE STATUS: Full code
Disposition: Home care when medically stable
Anticipated Discharge: 24 - 48 hours
Subjective/Interval History
-
Date of Service: June 14, 2024
Seen and examined at the bedside. No acute events reported overnight. Remains tachycardic with heart rate near 115/min, otherwise afebrile and hemodynamically stable. SpO2 97% on 2 L
Hemoglobin stabilized. Repeat echocardiogram performed this morning to reassess pericardial effusion. Chest x-ray pending to assess small pleural effusions on admission
Patient denies any shortness of breath or chest pain. Denies palpitations. States he feels generally well
Objective Data
-
Labs:
Laboratory Results
06/14/24
04:22
WBC 11.5 H
Hgb 9.3 L
Hct 28.1 L
Plt Count 372
Sodium 138
Potassium 4.9
Chloride 107
Carbon Dioxide 21 L
BUN 49 H
Creatinine 0.8
Glucose 147 H
Calcium 9.1
Total Bilirubin 0.9
AST 35
ALT 29
Alkaline Phosphatase 145 H
Vital Signs:
Vital Signs
Temp Pulse Resp BP Pulse Ox
98.7 F 110 21 116/77 97
06/14/24 07:10 06/14/24 10:28 06/14/24 10:28 06/14/24 10:28 06/14/24 10:28
I&O
06/13/24 06/14/24 06/15/24
06:59 06:59 06:59
Intake Total 1680 / 1680 1280 / 1280 480 / 480
Output Total 400 / 400 750 / 750 400 / 400
Balance 1280 / 1280 530 / 530 80 / 80
Review of Systems
-
History Source: Patient
All other systems: Reviewed and negative
Physical Exam
-
General: Well Developed, No Apparent Distress, Appears Chronically Ill and Morbidly Obese
HEENT: Normocephalic, Atraumatic, Moist Mucous Membranes and Anicteric
Respiratory: Non Labored Respirations and Decreased Breath Sounds (Bibasilar); Negative Wheezes, Rales, Rhonchi or Accessory Resp Muscle Use
Cardiac: S1/S2, Irregular Rhythm and Tachycardic; Negative Murmur, Rub, JVD or Gallop
GI: Soft, Nontender, Nondistended and Normal Bowel Sounds
Musculoskeletal: No Clubbing, No Cyanosis and Other (1-2+ lower extremity edema)
Skin: Warm, Dry and Normal Turgor; Negative Rash
Neuro: AO x 3 and Nonfocal/Grossly Intact; Negative Tremors
Psych: Calm
Data Reviewed
-
Labs: Labs Reviewed by me and Discussed with Patient
[2024-06-14] MEDS: PT'S OWN INSULIN PUMP - HumaLOG 15 UNIT SC (11:19)
[2024-06-14 11:29] LABS: Glucose - Point of Care 94 mg/dl (70-99)
[2024-06-14] MEDS: LASIX 40 MG IV (11:44)
--- NOTE | 2024-06-14 13:37 | CM ---
Patient with recent Hx left TKA 05/17 with Dx Acute hypoxemic respiratory failure, pericardial effusion, anemia. O2 2L. Weight 299 lbs. Receiving IV Lasix, IV steroids, Insulin via patient's own pump. PT 06/13 recommended outpatient therapy. OT
Eval 06/13; no needs.
Met with patient who resides alone in a first floor apartment with no stairs.
The patient was independent in ADLs and ambulation since recent discharge using his RW & quad cane.
His son & DIL stayed with him initially followed by his sister and brother in law for 5 days.
He states he had recently completed PT/OT with [facility] and had started outpatient PT.
DME - O[employer] 5 Insulin pump, Dexcom, CPAP, RW, quad cane, manager cath lab/grabber assistive device, shower chair
Recent [facility].
No prior SNF.
PCP- Herb Gold
Pharmacy - [facility]
Patient feels he has not been walking well with the RW since his current admission, and does not feel safe using the quad cane.
He is unsure if he wants [facility] again or to continue outpatient therapy.
Discussed patient's comments about his mobility with BELLA Black. PT will be seeing the patient again.
Case discussed with CRISTIANO Ackerman.
Plan follow patient's O2 needs and mobility.
Plan follow up with patient about [facility] vs outpatient therapy.
--- NOTE | 2024-06-14 15:18 | PTCARENOTE ---
Patient AOx3. Patient on RA. IS encouraged. A fib with PVC's on monitor. +2 pedal edema. Patient utilizes bedside commode. Patient tolerates diet. Patient doses himself for insulin. Call heredia within reach, bed in lowest position, and bed of wheels
locked.
--- NOTE | 2024-06-14 16:28 | VNURNOTE ---
Home health liaison met with patient to discuss [facility] services, visit scheduling/frequency, homebound status and pet policy. Patient hasd had services recently and understands home visits will be 1-2 times a week to assess and teach medical
management. Patient does not have an established PCP. Number for residency clinic given. Patient aware to make appointment with clinic and then contact [facility] office. Patient still wants to think about having homcare vs going straight to [facility] and
[facility]. Patient does not want to make the decision today. Home health liaison will follow up
[2024-06-14 16:58] LABS: Glucose - Point of Care 83 mg/dl (70-99)
[2024-06-14] MEDS: PT'S OWN INSULIN PUMP - HumaLOG 40 UNIT SC (17:22)
[2024-06-14] MEDS: PT'S OWN INSULIN PUMP - HumaLOG SC (21:15)
[2024-06-14 21:24] LABS: Glucose - Point of Care 127 mg/dl (70-99)
--- NOTE | 2024-06-14 21:49 | PTCARENOTE ---
Pt's HS accucheck 127. Based on pt's parameters pt did not give self his insulin. Pt declined to be checked at 0300. Pt stated breakfast will be fine unless he doesn't feel well before hand. Currently pt resting comfortably. Call heredia within reach.
Will continue to monitor.
[2024-06-14] MEDS: TYLENOL 1000 MG PO (23:25)
[2024-06-14] MEDS: DUONEB 3 ML INH (23:48)
[2024-06-15] VITALS (9 sets, daily range): BP systolic 107–133; BP diastolic 69–109; PULSE 113–115; BMI 46.9
--- NOTE | 2024-06-15 00:15 | PTCARENOTE ---
Pt changed out insulin pump to right arm.
[2024-06-15 04:36] LABS: % Basophils 0.2 % (0-2); % Eosinophils 2.1 % (0-6); % Immature Granulocytes 0.6 % (0-0.5); % Lymphocytes 8.7 % (20.5-51.1); % Monocytes 14.3 % (1.7-9.3); % Neutrophils 74.1 % (42.2-75.2); Absolute Eosinophils 0.2 10^3/uL (0-0.7); Absolute Immature Granulocytes 0.1 10^3/uL (0-0.05); Absolute Lymphocytes 0.8 10^3/uL (1.2-3.4); Absolute Monocytes 1.4 10^3/uL (0.1-0.6); Hematocrit 27.6 % (39.0-52.0); Hemoglobin 9.2 g/dL (13.0-18.0); Mean Corp Hgb Conc. 33.3 g/dL (33.0-37.0); Mean Corpuscular Hgb 28.9 pg (27.0-31.0); Mean Corpuscular Volume 86.8 fL (80.0-94.0); Mean Platelet Volume 9.5 fL (7.4-10.4); Nucleated Red Blood Cells % 0 % (-); Platelet Count 371 10^3/uL (130-400); Red Blood Cell Count 3.18 10^6/uL (4.70-6.10); Red Cell Dist. Width 15.9 % (11.5-14.5); White Blood Cell Count 9.4 10^3/uL (4.8-10.8)
[2024-06-15 05:01] LABS: ALT (SGPT) 39 U/L (0-50); AST (SGOT) 39 U/L (17-59); Albumin 2.8 g/dl (3.5-5.0); Alkaline Phosphatase 165 U/L (38-126); Blood Urea Nitrogen 36 mg/dl (9-20); Calcium 9.1 mg/dl (8.4-10.2); Carbon Dioxide 25 mmol/L (22-30); Chloride 105 mmol/L (98-107); Estimated Creatinine Clearance 116 ml/min; Glucose 95 mg/dl (70-99); Potassium 4.4 mmol/L (3.5-5.1); Sodium 140 mmol/L (135-145); Total Bilirubin 0.9 mg/dl (0.2-1.3); Total Protein 5.7 g/dl (6.3-8.2); eGFR > 60.00
[2024-06-15 07:48] LABS: Glucose - Point of Care 174 mg/dl (70-99)
[2024-06-15] MEDS: THERAGRAN 1 TABLET PO (08:01)
[2024-06-15] MEDS: NEURONTIN 300 MG PO (08:01)
[2024-06-15] MEDS: SYNTHROID 137 MCG PO (08:01)
[2024-06-15] MEDS: PROTONIX 40 MG PO (08:02)
[2024-06-15] MEDS: COREG 25 MG PO (08:02)
[2024-06-15] MEDS: XANAX 1 MG PO (08:02)
[2024-06-15] MEDS: LEXAPRO 10 MG PO (08:02)
[2024-06-15] MEDS: LIPITOR 40 MG PO (08:02)
[2024-06-15] MEDS: VITAMIN D3 (cholecalciferol) 25 MCG PO (08:02)
[2024-06-15] MEDS: LOW STRENGTH ASPIRIN 81 MG PO (08:02)
[2024-06-15] MEDS: ZADITOR 1 DROP BOTH EYES (08:03)
--- NOTE | 2024-06-15 08:36 | W.PN.CARDCBS ---
Addendum entered and electronically signed by Brian Watters MD 06/15/24 10:49:
I saw and examined the patient.
The OPTICAL BRIGHTENER MAKER HELPER or PA's note was reviewed and I agree with the note.
Comment: General: Well developed, well nourished in NAD.
Neck: Supple, no JVD, HJR, carotids +2 B/L, no bruits bilaterally.
Heart: Non displaced PMI, irregular, no murmurs, No S3, S4, no rubs.
Lungs: Crackles at the bases bilaterally
Extremities: No clubbing, cyanosis or edema bilaterally.
Neuro: Grossly nonfocal, awake, alert and oriented x3.
He feels better after IV Lasix although weight did not change. Will give another dose of IV Lasix. He is now on room air. Echocardiogram unchanged in 06/14. He will need repeat echo in 3 to 4 weeks as an outpatient. Possibly change to oral Lasix
on 06/16
Original Note:
Today's Communication / Plan
-
Given additional 40 mg IV Lasix today
Echo 06/14/2024 stable; repeat echo 3 to 4 weeks as outpatient to reevaluate pericardial effusion
Continue to hold amlodipine, valsartan and hydralazine
Continue aspirin, no need for anticoagulation as patient has Watchman device
Outpatient cardiology follow-up has been arranged
Impression / Plan
-
Primary Digital Advisor: Dr. Uriarte
Assessment:
Admitted with acute hypoxic respiratory failure and hypotension 06/12/24
Acute hypoxic respiratory failure, unclear etiology
Multifactorial hypotension
Pericardial effusion
Hypovolemic
SAMI
Permanent Afib
Not chronically anticoagulated due to watchman in place
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
with post 6 month and 12 month TOREY without leak and is now on aspirin
Anemia
GLORIA, on CPAP
DM
HTN
Hypothyroidism
Colon cancer s/p colectomy at 2023
s/p LTKA 05/17/24 at .
Echo 06/12/24: EF 65 to 70%, normal RV size and function, mild TR with PAP 50 mmHg, moderate pericardial effusion without evidence of hemodynamic compromise, mildly dilated aortic root sinus of Valsalva is 3.9 cm, no prior echo for comparison
Echo limited 06/14/2024: EF preserved, small to moderate circumferential pericardial effusion without evidence of hemodynamic compromise and stable compared to echo 06/12/2024
Plan:
-Patient came to ER 06/12/2024 with falls and was admitted with multifactorial hypotension and acute hypoxic respiratory failure.
-Initially found to have hypotension thought to be multifactorial including hypovolemia, possible aspiration and possibly from moderate pericardial effusion although no evidence of tamponade. Blood pressure now improved and patient tolerating
carvedilol but remains off valsartan, amlodipine and hydralazine.
-Patient has received 3 L IVFs since admission. Cre was 2.0 on 06/12/24 and improved to 1.3 on 06/13/24, 0.8 on 06/15/24.
-Echo 06/12/2024 noted above with moderate pericardial effusion, but no evidence of hemodynamic compromise. Repeat limited echo 06/14/2024 with small to moderate circumferential pericardial effusion without hemodynamic compromise and stable
-No plans for pericardiocentesis at this time. Would consider repeating echocardiogram as outpatient in 3 to 4 weeks
-Etiology of pericardial effusion could be infectious vs idiopathic vs pericarditis vs malignant (recent h/o colon CA, less likely). If patient has pericardiocentesis then fluid studies will be sent.
-Continue Coreg 25 mg BID
-Outpatient dose of amlodipine 5 mg daily, hydralazine 50 mg BID and valsartan 320 mg on hold due to hypotension. If blood pressure remains stable over next 24 hours could consider resuming lower dose of valsartan 80 mg
-Patient with known permanent Afib. Patient has history of Watchman due to history of GI bleed and therefore and is not on OAC. Continue aspirin 81 mg
-Hgb 9.0-9.5, currently 9.2. Continue to trending down as patient has a h/o GIB; hemoglobin was 14.3 in April 2024. However patient did have knee replacement 05/17/2024 and no hemoglobin was repeated after
-Small B/L pleural effusions on CT chest 06/12/24. pro-BNP 1190. EF 65% by echo. Patient was not taking a diuretic prior to admission. Chest x-ray repeated 06/14/2024 which shows basilar opacities left greater than right with small pleural effusions
and or atelectasis
-Patient given dose of IV Lasix 40 mg 06/15/2024 with good diuretic response. Weight still up and still appears to be volume overloaded. Will give an additional 40 mg 06/15/2024
HPI 06/12/2024:
He was recently transferred his care from [facility].
He has h/o persistent (permanent?) AF. Watchman 06/2021 with post 6 month and 12 month TOREY without leak and is now on aspirin ([facility]) . He had GI bleeding. TOREY 2022 with normal EF% and no significant valvular disease.�
Medical records also indicate h/o GLORIA (on CPAP), HTN, DM, hypothyroidism, colon cancer s/p colectomy and most recently s/p LTKA 05/17/24 at .
He presented to the ED after multiple falls over the last 2 days, denies head injury or loss of consciousness.
He and his son describe that twice yesterday he fell after sitting on toilet for a prolonged period of time, his legs became numb, wehen he stodd he fell over - no LOC
Today he had a mechanical fall while walking - no LOC
Upon arrival to ED he was mildly tachycardic, tachypneic and hypotensive. Afebrile. Hypotensive with quick response to IVFs fluids.
Initial labs with WBC 12.6, hemoglobin 9.5, creatinine 2.0, BUN 57, albumin 2.7, D-dimer 4.75. Chest x-ray showed small bilateral pleural effusions. Lower extremity venous ultrasound without signs of DVTs. CTA thorax PE study did not show any
evidence of pulmonary emboli, showed a moderate pericardial effusion and small bilateral pleural effusions. ECG showed AF with RVR, low voltage QRS.
Cardiology is consulted regarding CT finding of pericardial effusion.
Progress Note - Digital Advisor
Subjective
Date of Service: June 15, 2024
Patient seen and examined. Patient sitting up in chair eating breakfast. Reports he had a good night. Still feels legs are swollen.
Objective
Labs:
06/15/24 04:14
06/15/24 04:14
Labs
Hgb 9.2 g/dL (13.0-18.0) L 06/15/24 04:14
Hct 27.6 % (39.0-52.0) L 06/15/24 04:14
Plt Count 371 10^3/uL (130-400) 06/15/24 04:14
Sodium 140 mmol/L (135-145) 06/15/24 04:14
Potassium 4.4 mmol/L (3.5-5.1) 06/15/24 04:14
BUN 36 mg/dl (9-20) H 06/15/24 04:14
Creatinine 0.8 mg/dL (0.7-1.3) 06/15/24 04:14
Glucose 95 mg/dl (70-99) 06/15/24 04:14
Troponins
06/12/24
11:53
Troponin I < 0.012
Vital Signs and I&O:
Vital Signs
Temp Pulse Resp BP Pulse Ox
97.7 F 114 18 107/69 95
06/15/24 07:15 06/15/24 08:02 06/15/24 06:00 06/15/24 08:02 06/15/24 06:00
Vital Signs
Temp Pulse Resp BP Pulse Ox
97.7 F 114 18 107/69 95
06/15/24 07:15 06/15/24 08:02 06/15/24 06:00 06/15/24 08:02 06/15/24 06:00
Intake & Output
06/13/24 06/14/24 06/15/24 06/16/24
06:59 06:59 06:59 06:59
Intake Total 1680 / 1680 1280 / 1280 960 / 960
Output Total 400 / 400 750 / 750 2100 / 2100
Balance 1280 / 1280 530 / 530 -1140 / -1140
Physical Exam
Physical Exam
GEN: No distress, awake, Ox3, sitting in chair eating breakfast
HEENT: supple, anicteric, mmm
LUNGS: Absent breath sound at left base otherwise CTA, no wheezes/rales; off oxygen
CV: Reg, S1/S2, no murmur, rub or gallop
ABD: soft, BS+, NT/ND, obese
EXT: +2 lower extremity edema bilaterally, no clubbing or cyanosis
NEURO: Gross non-focal
SKIN: No rash, warm, dry, pink
[2024-06-15] MEDS: PT'S OWN INSULIN PUMP - HumaLOG SC ×2 (09:38→10:59)
--- NOTE | 2024-06-15 10:23 | W.PN.HOSP.TC ---
Today's Communication/Plan
-
IV Lasix x 1
Subcu Lantus
OP follow-up with cardiology
OP follow-up with endocrinology
Assessment / Plan
Assessment / Plan
#Acute hypoxemic respiratory failure
-Unclear cause, differentials include aspiration, GLORIA/OHS, deconditioning; required 4 L max
-CT on arrival did not show any signs of PE, did not mention consolidation or PTX either; no signs of hypercapnia
-He did have small bilateral pleural effusions on arrival, was noted to have some wheezing in the ED
-As of this morning remains on 2 L oxygen, SpO2 in the mid 90s
-Will order repeat chest x-ray to assess pleural effusions
-SpO2 goal >90% for now, wean as appropriate
-As needed DuoNebs, encourage OOB
-Start incentive spirometer
#Prerenal acute kidney injury
#Hypotension
-Suspect multifactorial etiology with poor intake, hypotension with his BP regimen
-Presented with systolic blood pressure in the 80s, creatinine at 2.0 with baseline near 1
-Has been reinitiated on carvedilol; amlodipine and hydralazine held
-Renal function improving, creatinine down to 1.3 with IVF
-Hold antihypertensive agents, resume sequentially if BP worsens
-Trend daily BMP, avoid nephrotoxins, encourage p.o. hydration
#Small pericardial effusion
-CT on arrival showed moderate pleural effusion, follow-up TTE showed small effusion
-No signs of tamponade physiology on echo, blood pressure is improved with IVF
-Denies recent viral prodrome, though cannot rule out viral etiology completely
-Does not have friction rub on my exam, no findings of pericarditis on ECG, no positional chest pain
-Cardiology following, will defer option to initiate colchicine and NSAIDs to their discretion
-Follow-up repeat echocardiogram from today to reassess effusion
#Normocytic anemia
-Acute to subacute, hemoglobin and February was near 14, presented with hemoglobin 9.5-9.0
-Iron studies consistent with anemia of chronic disease, high ferritin and low TIBC
-No obvious signs of bleeding at this time; will monitor for bloody stool and other sources
-With elevated D-dimer, no signs of thrombosis, cannot rule out recurrent malignancy
-Trend CBC for now
#AF with RVR
#AF s/p Watchman
-Home regimen includes carvedilol 25 mg twice daily; no longer on AC due to bleeding
-Status post Watchman device, remains on baby aspirin which is currently twice daily for DVT prophylaxis
-Upon arrival head heart rate between 100-120/min, remained hemodynamically stable after initial IVF
-Suspect RVR is associated with hypovolemic state; s/p IV fluids
-Consider transition from carvedilol to metoprolol versus rhythm control
-Monitor on telemetry
#Leukocytosis
-Unclear cause, white cell count 12.6 on arrival, down to 11.5 this morning without antibiotics
-Question if this is reactive to minor trauma from his fall versus related to recurrence of his cancer
-Will trend CBC and temperature curve for now, hold antibiotics
-White cell count as of 06/15 was normal
#IDDM with continuous glucometer and insulin pump
-A1c here 6.3%; currently well-controlled with glucometer regimen
-Diabetes team following for CGM management
-Follows outpatient with endocrinology in [place]
-Insulin pump not working, transition to 60 units Lantus daily
#Elevated D-dimer
#H/O colon cancer s/p robotic colectomy
-Patient has leukocytosis as well, question if he has cancer recurrence
-CTA thorax was without signs of pulmonary emboli, no signs of DVT on ultrasound
-Should have outpatient follow-up with oncology/PCP for further investigation
#S/p left total knee arthroplasty on 05/17/2024
#DVT prophylaxis with 81 mg aspirin twice daily
-Remains on twice daily baby aspirin
-Surgical scar appears well-approximated, no signs of infection
DVT prophylaxis: Twice daily aspirin
Diet: Carbohydrate controlled
CODE STATUS: Full code
Disposition: Home care when medically stable
I spoke with the patient's primary cardiac cath technician/PCP Dr. Gold and updated him on the events of this hospitalization including malfunction of his insulin pump.
Anticipated Discharge: Within 24 hours
Subjective/Interval History
-
Date of Service: June 15, 2024
Seen and examined at bedside. No acute events overnight. AFVSS on room air this morning, heart rate low 100s in AF
Hemoglobin stable as is renal function. Insulin pump malfunctioning today. Transition to Lantus
Denies any other new complaints
Objective Data
-
Labs:
Laboratory Results
06/15/24
04:14
WBC 9.4
Hgb 9.2 L
Hct 27.6 L
Plt Count 371
Sodium 140
Potassium 4.4
Chloride 105
Carbon Dioxide 25
BUN 36 H
Creatinine 0.8
Glucose 95
Calcium 9.1
Total Bilirubin 0.9
AST 39
ALT 39
Alkaline Phosphatase 165 H
Vital Signs:
Vital Signs
Temp Pulse Resp BP Pulse Ox
97.7 F 114 18 107/69 95
06/15/24 07:15 06/15/24 08:02 06/15/24 06:00 06/15/24 08:02 06/15/24 06:00
I&O
06/14/24 06/15/24 06/16/24
06:59 06:59 06:59
Intake Total 1280 / 1280 960 / 960
Output Total 750 / 750 2100 / 2100
Balance 530 / 530 -1140 / -1140
Review of Systems
-
History Source: Patient
All other systems: Reviewed and negative
Physical Exam
-
General: Well Developed, No Apparent Distress and Morbidly Obese
HEENT: Normocephalic, Atraumatic, Moist Mucous Membranes and Anicteric
Respiratory: Clear to Auscultation and Non Labored Respirations
Cardiac: S1/S2 and Irregular Rhythm; Negative Murmur, Rub or Gallop
GI: Soft, Nontender, Nondistended and Normal Bowel Sounds
Musculoskeletal: No Clubbing, No Cyanosis and Other (1+ edema)
Skin: Warm, Dry and Normal Turgor; Negative Rash
Neuro: AO x 3 and Nonfocal/Grossly Intact
Psych: Calm
Data Reviewed
-
Labs: Labs Reviewed by me and Discussed with Patient
[2024-06-15] MEDS: LANTUS 0.6 UNITS SC (10:53)
[2024-06-15] MEDS: LASIX 40 MG IV (10:54)
[2024-06-15 11:03] LABS: Glucose - Point of Care 325 mg/dl (70-99)
--- NOTE | 2024-06-15 14:00 | W.DCSUMMARY ---
Discharge Summary
Discharge Data
Date of Admission: 06/12/24
Date of Discharge: 06/15/24
Total time spent discharging patient (in min): 35
-
Pending Results: No
Hospital Course
Discharging Physician :�Brian Redding DO
Disposition :���� Home care
Principal Discharge diagnosis :�
SAMI
Hypotension
Hypoxemia
Pericardial effusion
AF with RVR
Malfunctioning insulin pump
Chronic Discharge diagnosis :�
Type 1 diabetes mellitus with insulin pump and CGM
GLORIA on CPAP
AF s/p watchman
Hypothyroidism
Hypertension
Dyslipidemia
Colon cancer s/p colectomy
S/p left total knee arthroplasty
AOCD
History of GI bleeding
Hospital Course :�
68-year-old male that presented to the hospital with a fall at home while using the commode. States that he was sitting on the toilet and fell to his right side. Denied associated symptoms. Upon arrival found to have SAMI with creatinine 2.0, up
from baseline of 1.0. Hypotensive with systolic blood pressure in the 80s, responsive to IV fluids. Home antihypertensive regimen was held. CTA thorax without t evidence of dissection and pulmonary emboli, but did show a moderate appearing
pericardial effusion. Follow-up stat echocardiogram ruled out cardiac tamponade, demonstrated small to moderate concentric pericardial effusion. Effusion was deemed to be stable over multiple echoes in the hospital. Hemodynamically improved with
IV fluids. Was reinitiated on his carvedilol for atrial fibrillation rate control. Home amlodipine, hydralazine, valsartan were discontinued. Was given 2 doses of IV Lasix for hypoxemia while in the hospital and transition to oral Lasix 40 mg
daily at time of discharge. Should follow-up with cardiology for repeat echocardiogram in 3 to 4 weeks. Of note, during the hospital stay his insulin pump malfunctioned. Spoke with his outpatient operation agent, was transitioned to equivalent
Lantus regimen of 60 units daily with as needed sliding scale at time of discharge. Recommend that he followed up with operation agent this upcoming week and had insulin pump replaced.
Consultants :
Mirlande Ham NP -- Diabetes management
Orlando Le MD -- Cardiology
Important imaging findings :�
#Chest CT pulmonary emboli protocol (06/12/24)
IMPRESSION:
1. No evidence of central, lobar or segmental pulmonary embolism.
2. Moderate pericardial effusion which is new from prior examination.
3. Small bilateral pleural effusions with adjacent atelectasis.
#Renal ultrasound (06/13/2024)
IMPRESSION: No focal abnormality of the urinary bladder. Ureteral jets are not visualized. Postvoid bladder residual with estimated volume of 123 cc. No evidence for pelvicalyceal dilation of either kidney.
#Transthoracic echocardiogram (06/12/2024)
CONCLUSIONS:
Normal left ventricular size, wall thickness and systolic function.
No regional wall motion abnormalities are seen. LV ejection fraction is 65-70% by visual assessment.
Normal right ventricular systolic function.
Indexed LA volume is mildly abnormal (35-41 mL/m2).
Mildly dilated right atrium.
Mild tricuspid regurgitation.
Estimated pulmonary artery pressure of 50 mmHg assuming a right atrial pressure of 15 mmHg.
Moderate pericardial effusion without evidence of hemodynamic compromise.
Mildly dilated aortic root (Sinus of Valsalva 3.9 cm).
No prior study available for comparison.
#Transthoracic echocardiogram (06/14/2024)
CONCLUSIONS:
Normal left ventricular size and function. Left ventricular ejection fraction is 65% by Zamudio's method of discs.
Small to moderate circumferential pericardial effusion without evidence of hemodynamic compromise.
Since echo 06/12/2024 which was reviewed, there is no significant change.
Procedure findings :� N/A
Follow-up :
Follow-up with operation agent within a week after discharge, obtain new glucometer and insulin pump
Follow-up with cardiology in office in 3 to 4 weeks for repeat echocardiogram
Discontinue hydralazine, valsartan, amlodipine
Start Lasix 40 mg QD
Lanstus 60 U + ISS pending new insulin pump
BMP and CBC 5 to 7 days after discharge
Discharge Plan
-
Patient Disposition: Home with Home Care
Discharge Diagnosis/Procedures: Hypotension
Hypoxemia
A-fib with RVR
Pericardial effusion
Anemia
Recent knee surgery
Type 1 diabetes mellitus with insulin pump
Malfunctioning insulin pump
Condition: Fair
Diet: Low Fat and Diabetic, Carb Controlled
Activity: As tolerated
Blood Work: BMP and CBC
Others Tests: Echocardiogram in 4 weeks, can be scheduled at outpatient cardiology visit
Other Services: VN and PT
Activity Restrictions/Additional Instructions:
He after discharge from the hospital you should schedule follow-up appointment with your family doctor, should be seen in office within 1 to 2 weeks of hospitalization. Referral for the family medicine residency clinic provided if you need a family
doctor
Schedule a follow-up appointment with your operation agent, should be seen the week after discharge.
Follow-up with cardiology in office on 06/27/2024 at 10:20 AM, office information provided below
Instructions: Dealing with Low Blood Pressure from the Drugs You Take
Referrals:
Cesar Castellano MD, Resident [Family Practice Resident Year2] - in two weeks
Herb Gold MD [Non-Admitting Privileges] - in three to four days
Corina Pappas PA-C [Specified Professional Personl] - 06/27/24 10:20 am (You have a cardiology follow-up with Corina Pappas PA-C on 06/27/2024 at 10:20 AM. If you are unable to make this appointment please call [phone] to reschedule)
UNKNOWN - PT DOES,NOT KNOW [Family Provider] -
Additional Discharge Medication Instructions: Stop taking hydralazine, amlodipine, valsartan
Start Lasix 40 mg daily
Start insulin glargine 60 units daily and insulin aspart sliding scale (1 week of insulin sent to pharmacy) until you have your insulin pump replaced and your continuous glucometer is working properly
Prescriptions:
New
insulin glargine [Lantus Solostar U-100 Insulin] 100 unit/mL (3 mL) insulin pen
60 unit SC DAILY 7 Days Qty: 4.2 0RF
insulin aspart U-100 100 unit/mL (3 mL) insulin pen
1 sliding scale dose SC DIRECTED 7 Days Qty: 15 0RF
(DME) blood sugar diagnostic Strip
See Rx Instructions .Route Qty: 25 0RF
Rx Instructions:
As directed
(DME) lancets 25 gauge misc
See Rx Instructions .Route Qty: 100 0RF
Rx Instructions:
As directed
(DME) Accu-Chek Guide test strips Strip
See Rx Instructions .Route Qty: 25 0RF
Rx Instructions:
As directed
furosemide [Lasix] 40 mg tablet
40 mg PO DAILY 30 Days Qty: 30 0RF
Continued
tadalafil [Cialis] 20 MG tablet
5 mg PO DAILYPRN PRN (Reason: Erectile dysfunction)
pantoprazole [Protonix] 40 mg Tablet,Delayed Release (Dr/Ec)
40 mg PO DAILY
levothyroxine 137 mcg Tablet
137 mcg PO DAILY
carvedilol 25 mg Tablet
25 mg PO BID
cholecalciferol (vitamin D3) [Vitamin D3] 25 mcg (1,000 unit) Tablet
25 mcg PO DAILY
Ozempic 2 mg/dose (8 mg/3 mL) Pen Injector
2 mg SC BARBER
Rx Instructions:
Takes on Monday
azelastine 0.05 % Drops
1 drp BOTH EYES BID
gabapentin 300 mg Capsule
300 mg PO BID
atorvastatin 40 mg Tablet
40 mg PO DAILY
alprazolam 1 mg Tablet
1 mg PO BID
Patient Comments:
06/12/24: Per PDMP, last filled 05/07/24 #180 for 90 days
therapeutic multivitamin Tablet
1 tab PO DAILY
acetaminophen 500 mg Tablet
1,000 mg PO TIDPRN PRN (Reason: mild pain)
aspirin 81 mg Tablet,Chewable
81 mg PO BID
escitalopram oxalate 10 mg Tablet
10 mg PO DAILY
fluticasone propionate 50 mcg/actuation [place],Suspension
2 spray INTRANASAL DAILY
Held
Patient's Own Insulin Pump
1 dose SC .CONTINUOUS
Hold Instructions: Until replaced with functioning unit
Patient Comments:
06/12/24: patient uses Humalog insulin in the pump
Discontinued
hydralazine 50 MG tablet
50 mg PO BID
amlodipine 5 mg Tablet
5 mg PO DAILY
valsartan [Diovan] 320 mg Tablet
320 mg PO DAILY
Discharge Orders:
Discharge Patient (As Directed); Ordered 06/15/24
Ordered By: Brian Redding
Discharge Date and Time
Print Language: ALGERIAN
--- NOTE | 2024-06-15 14:57 | CM ---
Addendum entered by Martha Flores 06/15/24 15:02:
CM updated physician about the change in recommendation by therapy to SNF and patient request that he have updated script. Physician provided updated script.
Original Note:
Patient seen at bedside in IMU. Patient now for discharge home per patient nursing. Patient stated that he is confused about going to SNF as PT recommended or going home with VN vs outpatient therapy. Patient states that he believes he can go home
with outpatient therapy and CM requested physician complete updated script for patient to go to outpatient PT. Patient does not want home VN/PT as he does not feel that they helped much. Patient does not want OT. Patient stated that he does want to
go home and believes that he can work with his walker. CM reviewed IMM form and signed form placed on chart. Patient son enroute to transport patient home. CM will continue to follow for discharge planning needs.
Plan; home with outpatient therapy script.
== END 2024-06-15 15:21 | disposition home health service (06) | DRG 314 ==
LOC: IMU 18:55
PROVIDERS: Clinical Nurse Specialist Family Health; ADMITTING PHYSICIAN Internal Medicine; CONSULT PHYSICIAN Internal Medicine Cardiovascular Disease; EMERGENCY PHYSICIAN Emergency Medicine
DX: I31.39 Other pericardial effusion (noninflammatory) (principal); G93.41 Metabolic encephalopathy; J96.01 Acute respiratory failure with hypoxia; I48.21 Permanent atrial fibrillation; N17.9 Acute kidney failure, unspecified; T85.614A Breakdown (mechanical) of insulin pump, initial encounter; J90 Pleural effusion, not elsewhere classified; J98.11 Atelectasis; Z68.42 Body mass index [BMI] 45.0-49.9, adult; I95.1 Orthostatic hypotension; Y74.2 Prosthetic and other implants, materials and accessory general hospital and personal-use devices associated with adverse incidents; E10.9 Type 1 diabetes mellitus without complications; G47.33 Obstructive sleep apnea (adult) (pediatric); E03.9 Hypothyroidism, unspecified; E66.813 Obesity, class 3; I10 Essential (primary) hypertension; Z79.4 Long term (current) use of insulin; Z90.49 Acquired absence of other specified parts of digestive tract; Z85.038 Personal history of other malignant neoplasm of large intestine; Z79.899 Other long term (current) drug therapy; Z79.82 Long term (current) use of aspirin
CPT/HCPCS: 93308; 36600; 70450; 71045; 71046; 71275; 76770; 80053; 80061; 82570; 82607; 82728; 82746; 82805; 82962; 83036; 83540; 83550; 83880; 84300; 84443; 84484; 85025; 85379; 85652; 93005; 93306; 93321; 93325; 93970; 94640; 94660; 96360; 97163; 97166; 97530; 99285; Q9967

== ENCOUNTER 2024-06-16 04:40 | Inpatient (IN) | payer MEDICARE, SELFPAY ==
[2024-06-16] VITALS (19 sets, daily range): BP systolic 104–137; BP diastolic 49–95; PULSE 110–112; O2SAT 99; BMI 44.0; BMI 41.9
--- NOTE | 2024-06-16 00:42 | ED.GENMED ---
History of Present Illness
General
Chief Complaint: Breathing Problem
Source: patient
Exam Limitations: none
Time Seen by Provider: 06/16/24 00:37
History of Present Illness
History of Present Illness:
See MDM
Past History
Past History
ED Past Medical History: Arrthythmia, CHF, GERD, HTN, IDDM and Psychiatric (Anxiety)
ED Past Surgical History: Appendectomy
Social History
Tobacco: Non-smoker
Alcohol: None
Drug: None
Living: with family
Employment: Employed
Phy Exam
Physical Exam
Physical Exam:
See MDM
Scores
Heart Failure Risk
Heart Failure Risk Score: Yes
History of Stroke or TIA: No
History of intubation for respiratory distress: No
Heart rate on ED arrival >/= 110: Yes
SaO2 <90% on arrival on room air: Yes
HR >/=110 during 3min walk test (or too ill to perform test): Yes
ECG has acute ischemic changes: No
Urea >/=12mmol/L (BUN 33.6mg/dL): Yes
Serum CO2>/=35mmol/L: No
Troponin I or T elevated to MD Level (0.4mg/dL): No
NT-proBNP >/=5,000ng/L (5,000pg/ml): No
HF Risk Score: 4
Admission Status: HIGH RISK 26.1% Consider SNF treatment or admission to hospital
Course
Orders/Labs/Results
Orders:
Orders
06/16/24 00:42
Electrocardiogram (*1) Urgent
Reason for Study: Shortness of Breath
EKG- Treatment ONCE
CR Chest Portable - 1 View Urgent
Comment:
Reason For Exam: SOB
Reason Study Needs to be Portable: Unable to Transport
06/16/24 01:05
Complete Blood Count/With Diff Urgent
Comprehensive Metabolic Panel Urgent
NT-proBNP Urgent
PTT Urgent
Prothrombin Time Urgent
Troponin I Urgent
06/16/24 01:37
Furosemide [Lasix] 80 mg IV NOW STA
Abnormal Lab Results
06/16/24
01:05
RBC 3.66 L 10^6/uL
(4.70-6.10)
Hgb 10.5 L g/dL
(13.0-18.0)
Hct 31.1 L %
(39.0-52.0)
RDW 15.7 H %
(11.5-14.5)
Plt Count 423 H 10^3/uL
(130-400)
Abs Immat Gran (auto) 0.1 H 10^3/uL
(0-0.05)
Absolute Neuts (auto) 8.2 H 10^3/uL
(1.4-6.5)
Absolute Lymphs (auto) 0.8 L 10^3/uL
(1.2-3.4)
Absolute Monos (auto) 1.4 H 10^3/uL
(0.1-0.6)
Immature Gran % 0.6 H %
(0-0.5)
Neutrophils % 76.3 H %
(42.2-75.2)
Lymphocytes % 7.7 L %
(20.5-51.1)
Monocytes % 12.7 H %
(1.7-9.3)
PT 16.2 H Sec
(11.4-14.6)
APTT 40.6 H Sec
(23.4-35.0)
BUN 36 H mg/dl
(9-20)
Glucose 101 H mg/dl
(70-99)
Alkaline Phosphatase 167 H U/L
(38-126)
Total Protein 6.1 L g/dl
(6.3-8.2)
Albumin 2.9 L g/dl
(3.5-5.0)
06/16/24 01:05
06/16/24 01:05
Vital Signs
Initial and Last Documented VS:
Initial Vital Signs
Temp Pulse Resp BP Pulse Ox
98.7 F 111 19 115/79 88
06/16/24 00:23 06/16/24 00:23 06/16/24 00:23 06/16/24 00:23 06/16/24 00:23
Last Documented Vital Signs
Temp Pulse Resp BP Pulse Ox
98.7 F 112 23 121/67 95
06/16/24 00:23 06/16/24 02:07 06/16/24 02:00 06/16/24 02:07 06/16/24 01:30
MDM/Problems Addressed
Differential Diagnosis Includes:
HPI and MDM Narrative:
68-year-old male presenting with worsening shortness of breath. He was just discharged yesterday from the hospital for heart failure. Patient was started on Lasix on arrival to the emergency department, patient found to be hypoxic to 88% on room
air requiring supplemental oxygen. Patient has crackles at bases and +3 pitting edema to both legs. Will obtain chest x-ray and obtain basic blood work but ultimately admit for diuresis
Physical exam
General: Well appearing and non-toxic
HEENT: protecting airway
Neck: appears supple
CV: No evidence of cyanosis. Tachycardic
Resp: No accessory muscle use. Crackles at bases
Abd: Non-distended
Extremities: +3 pitting edema bilateral lower extremities
Neuro: alert
Psych: Normal affect
Skin: Intact
Problems Addressed including Acute and Chronic Conditions affecting care:
1. Acute CHF exacerbation
Acuity: acute
Prognosis: unstable
Details: Ultimately start IV Lasix and
2. Hypoxia
Acuity: acute
Prognosis: unstable
Details: Likely in setting of pulmonary edema. Will continue supplemental oxygen
Updates
Chest x-ray concerning for pleural effusions and cardiomegaly. Given the recent diagnosis of pericardial effusion, will start IV Lasix and admit
Differential Diagnosis (but not limited to): Pulmonary edema, pneumonia
Testing considered: CT PE but this was just performed few days ago
Drug therapy (if applicable): OTC meds, please see d/c instruction regarding Rx drugs
Amount and/or Complexity of Data Reviewed
Clinical info obtained from: Patient
External data reviewed: Recent admission for congestive heart failure
Labs I independently reviewed (but not limited to): Troponin and BNP
Radiology: X-ray independently reviewed: Chest x-ray concerning for pleural effusion and cardiomegaly
Pulse Ox: not hypoxic
EKG independently reviewed: A-fib with RVR, normal axis, no STEMI
Superintendent Compressor Stations: A-fib
Critical Care: The high probability of a clinically significant, sudden or life threatening deterioration of the cardiopulmonary system(s) required my full and direct attention, intervention and personal management. The aggregate critical care time
was 33 minutes. This time is in addition to time spent performing reported procedures but includes the following:
[x] Data Review and interpretation
[x] Patient assessment and monitoring of vital signs
[x] Documentation
[x] Medication orders and management
Risk of Complication:
Social Determinants of health: Good social support
Discussed with other providers: Hospitalist
Escalation of Care includes Admit/Obs: Given recent diagnosis with pericardial effusion, will admit with IV Lasix and supplemental oxygen
Occasional wrong word or 'sound a like' substitutions may have occurred due to the inherent limitations of voice recognition software. Read the chart carefully and recognize, using context, where substitutions have occurred.
*Critical Care Note
Total Time (30-74mins, 75-104mins- exclusive of procedures): 33 min
ED Attending Note
-
Portions of this chart may have been created with voice recognition software.� Occasional wrong word or��sound alike� substitutions may have occurred due to the inherent limitations of voice recognition software.
Discharge Plan
Departure
Patient Disposition: Admit
Date of Disposition: 06/16/24
Time of Disposition: 01:38
Admit to: Telemetry
Presentation/result/management discussed w/ accepting MD/DO: Hospitalist
Discharge Problem:
Cardiomegaly, Hypoxia
Prescriptions:
No Action
tadalafil [Cialis] 20 MG tablet
5 mg PO DAILYPRN PRN (Reason: Erectile dysfunction)
pantoprazole [Protonix] 40 mg Tablet,Delayed Release (Dr/Ec)
40 mg PO DAILY
levothyroxine 137 mcg Tablet
137 mcg PO DAILY
carvedilol 25 mg Tablet
25 mg PO BID
cholecalciferol (vitamin D3) [Vitamin D3] 25 mcg (1,000 unit) Tablet
25 mcg PO DAILY
Ozempic 2 mg/dose (8 mg/3 mL) Pen Injector
2 mg SC BARBER
Rx Instructions:
Takes on Monday
azelastine 0.05 % Drops
1 drp BOTH EYES BID
gabapentin 300 mg Capsule
300 mg PO BID
atorvastatin 40 mg Tablet
40 mg PO DAILY
alprazolam 1 mg Tablet
1 mg PO BID
Patient Comments:
06/12/24: Per PDMP, last filled 05/07/24 #180 for 90 days
therapeutic multivitamin Tablet
1 tab PO DAILY
acetaminophen 500 mg Tablet
1,000 mg PO TIDPRN PRN (Reason: mild pain)
aspirin 81 mg Tablet,Chewable
81 mg PO BID
escitalopram oxalate 10 mg Tablet
10 mg PO DAILY
Patient's Own Insulin Pump
1 dose SC .CONTINUOUS
Patient Comments:
06/12/24: patient uses Humalog insulin in the pump
fluticasone propionate 50 mcg/actuation [place],Suspension
2 spray INTRANASAL DAILY
insulin glargine [Lantus Solostar U-100 Insulin] 100 unit/mL (3 mL) insulin pen
60 unit SC DAILY 7 Days Qty: 4.2 0RF
insulin aspart U-100 100 unit/mL (3 mL) insulin pen
1 sliding scale dose SC DIRECTED 7 Days Qty: 15 0RF
(DME) blood sugar diagnostic Strip
See Rx Instructions .Route Qty: 25 0RF
Rx Instructions:
As directed
(DME) lancets 25 gauge misc
See Rx Instructions .Route Qty: 100 0RF
Rx Instructions:
As directed
(DME) Accu-Chek Guide test strips Strip
See Rx Instructions .Route Qty: 25 0RF
Rx Instructions:
As directed
furosemide [Lasix] 40 mg tablet
40 mg PO DAILY 30 Days Qty: 30 0RF
insulin glargine [Lantus Solostar U-100 Insulin] 100 unit/mL (3 mL) insulin pen
60 unit SC DAILY 7 Days Qty: 4.2 0RF
Rx Instructions:
E10
insulin aspart U-100 100 unit/mL (3 mL) insulin pen
1 sliding scale dose SC DIRECTED 7 Days Qty: 15 0RF
Rx Instructions:
E10, ISS with meals
(DME) lancets 25 gauge misc
See Rx Instructions .Route Qty: 100 0RF
Rx Instructions:
E10, Check with meals and nightly
(DME) blood-glucose meter Kit
See Rx Instructions .Route Qty: 1 0RF
Rx Instructions:
E10, check with meals and nightly
(DME) Blood Glucose Test Strip
See Rx Instructions .Route Qty: 50 0RF
Rx Instructions:
E10, check with meals and nightly
insulin lispro 100 unit/mL insulin pen
1 sliding scale dose SC DIRECTED Qty: 15 0RF
Rx Instructions:
E10.9, ISS with meals
Referrals:
Herb Gold MD [Family Provider] -
Interventions
Interventions:
*Risk Screen - Suicide Last Done: 06/16/24 00:23
*General Assessment Last Done: 06/16/24 00:23
*Neglect/Abuse Screening Last Done: 06/16/24 00:23
*ED- Fall Risk Assessment Last Done: 06/16/24 00:23
*ED COVID-19 Vaccine History Last Done: 06/16/24 00:23
ED- Cardiac Assessment Last Done: 06/16/24 00:23
ED- Pulmonary Assessment Last Done: 06/16/24 00:23
Discharge Date and Time
Print Language: AUSTRIAN
[2024-06-16 01:15] LABS: % Basophils 0.4 % (0-2); % Eosinophils 2.3 % (0-6); % Immature Granulocytes 0.6 % (0-0.5); % Lymphocytes 7.7 % (20.5-51.1); % Monocytes 12.7 % (1.7-9.3); % Neutrophils 76.3 % (42.2-75.2); Absolute Eosinophils 0.3 10^3/uL (0-0.7); Absolute Immature Granulocytes 0.1 10^3/uL (0-0.05); Absolute Lymphocytes 0.8 10^3/uL (1.2-3.4); Absolute Monocytes 1.4 10^3/uL (0.1-0.6); Absolute Neutrophils 8.2 10^3/uL (1.4-6.5); Hematocrit 31.1 % (39.0-52.0); Hemoglobin 10.5 g/dL (13.0-18.0); Mean Corp Hgb Conc. 33.8 g/dL (33.0-37.0); Mean Corpuscular Hgb 28.7 pg (27.0-31.0); Mean Platelet Volume 9.3 fL (7.4-10.4); Nucleated Red Blood Cells % 0 % (-); Platelet Count 423 10^3/uL (130-400); Red Blood Cell Count 3.66 10^6/uL (4.70-6.10); Red Cell Dist. Width 15.7 % (11.5-14.5); White Blood Cell Count 10.8 10^3/uL (4.8-10.8)
[2024-06-16 01:21] LABS: INR 1.27; PT 16.2 Sec (11.4-14.6)
[2024-06-16 01:22] LABS: APTT 40.6 Sec (23.4-35.0)
[2024-06-16 01:23] LABS: ALT (SGPT) 36 U/L (0-50); AST (SGOT) 30 U/L (17-59); Albumin 2.9 g/dl (3.5-5.0); Alkaline Phosphatase 167 U/L (38-126); Blood Urea Nitrogen 36 mg/dl (9-20); Calcium 9.2 mg/dl (8.4-10.2); Carbon Dioxide 30 mmol/L (22-30); Chloride 104 mmol/L (98-107); Estimated Creatinine Clearance 107 ml/min; Glucose 101 mg/dl (70-99); Potassium 4.5 mmol/L (3.5-5.1); Sodium 139 mmol/L (135-145); Total Bilirubin 0.9 mg/dl (0.2-1.3); Total Protein 6.1 g/dl (6.3-8.2); eGFR > 60.00
[2024-06-16 01:43] LABS: NT-proBNP 3260 pg/ml; Troponin I < 0.012 ng/ml
[2024-06-16] MEDS: LASIX 80 MG IV (02:07)
--- NOTE | 2024-06-16 03:50 | HPS.HSE ---
Family Physician
-
Family Physician: Herb Gold MD
Chief Complaint
-
Weakness / Fall
History of Present Illness
Patient is a 68y M with PMH significant for ASCVD, HTN, DM and recent L TKA who presents to ED complaining of weakness, falls at home. Patient was hospitalized at from 06/12 - 06/15 for pericardial effusion, hypotension and SAMI. He initially
received IVF resuscitation and his renal function and BP improved. He received IV Lasix on Monday and Monday prior to his discharge. Patient states that when he arrived home he was unable to get around. He reports feeling very weak and notes
that he fell twice at home. He denies striking his head, LOC or injury to the L / prosthetic knee.
Patient denies any chest pain or increase in shortness of breath. He states that he has a mild cough.
No GI or complaints.
Medical History
Past Medical History
Past Medical History: Reports Other
Additional Past Medical History:
ASCVD
GERD
HTN
DM2
Depression / Anxiety
Morbid Obesity
GLORIA on CPAP full mask setting 14
Permanent A-Fib
History of bleeding on Xarelto
Cecal Cancer
HFpEF
Past Surgical History: Reports Other
Additional Past Surgical History:
Left TKA (05/17/24)
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 Mosley on 07/27/2023
Social History
Tobacco: Non-smoker
Alcohol: None
Drug: None
Personal:
Living: Alone
Employment: Retired
Family History
Family History: Other (Father pancreatic cancer age 70 to 80s other prior history of laryngeal cancer, smoker, mother renal carcinoma, 1 brother healthy living at age 81)
Allergies / Home Medications
Allergies reflects when Allergies were last updated in [employer].
Home Medications with original date entered in [employer]
Allergy/Medication List:
Allergies
Allergy/AdvReac Type Severity Reaction Status Date / Time
rivaroxaban [From Xarelto] Allergy bleeding Verified 06/16/24 00:42
Home Medications
tadalafil 20 mg tablet (Cialis) 5 mg PO DAILYPRN PRN Erectile dysfunction 03/24/17
pantoprazole 40 mg tablet,delayed release (Protonix) 40 mg PO DAILY Gastrointestinal Issue 07/06/23
carvedilol 25 mg tablet 25 mg PO BID Blood Pressure 07/24/23
cholecalciferol (vitamin D3) 25 mcg (1,000 unit) tablet (Vitamin D3) 25 mcg PO DAILY Supplement 07/24/23
levothyroxine 137 mcg tablet 137 mcg PO DAILY Thyroid 07/24/23
azelastine 0.05 % eye drops 1 drp BOTH EYES BID Eye Condition 04/23/24
semaglutide 2 mg/dose (8 mg/3 mL) subcutaneous pen injector (Ozempic) 2 mg SC BARBER WEIGHT LOSS 04/23/24
gabapentin 300 mg capsule 300 mg PO BID Pain 05/10/24
Patient's Own Insulin Pump 1 dose SC .CONTINUOUS Diabetes 06/12/24
acetaminophen 500 mg tablet 1,000 mg PO TIDPRN PRN mild pain 06/12/24
alprazolam 1 mg tablet 1 mg PO BID Mental Health/Anxiety 06/12/24
aspirin 81 mg chewable tablet 81 mg PO BID Blood Clot Prevention/Tx 06/12/24
atorvastatin 40 mg tablet 40 mg PO DAILY High Cholesterol 06/12/24
escitalopram oxalate 10 mg tablet 10 mg PO DAILY Mental Health/Anxiety 06/12/24
fluticasone propionate 50 mcg/actuation nasal spray,suspension 2 spray intranasal DAILY Allergies 06/12/24
therapeutic multivitamin 1 tab PO DAILY Supplement 06/12/24
blood sugar diagnostic #25 ea 06/15/24
blood sugar diagnostic (Accu-Chek Guide test strips) #25 ea 06/15/24
blood sugar diagnostic (Blood Glucose Test strips) #50 ea 06/15/24
blood-glucose meter #1 ea 06/15/24
furosemide 40 mg tablet (Lasix) 40 mg PO DAILY Fluid retention/Swelling 1 month #30 tabs 06/15/24
insulin aspart U-100 100 unit/mL (3 mL) subcutaneous pen 1 sliding scale dose SC DIRECTED Diabetes 1 week #15 mL 06/15/24
insulin aspart U-100 100 unit/mL (3 mL) subcutaneous pen 1 sliding scale dose SC DIRECTED Diabetes 1 week #15 mL 06/15/24
insulin glargine 100 unit/mL (3 mL) subcutaneous pen (Lantus Solostar U-100 Insulin) 60 unit (0.6 mL) SC DAILY Diabetes 1 week #4.2 mL 06/15/24
insulin glargine 100 unit/mL (3 mL) subcutaneous pen (Lantus Solostar U-100 Insulin) 60 unit (0.6 mL) SC DAILY Diabetes 1 week #4.2 mL 06/15/24
insulin lispro 100 unit/mL subcutaneous pen 1 sliding scale dose SC DIRECTED Diabetes #15 mL 06/15/24
lancets 25 gauge #100 ea 06/15/24
lancets 25 gauge #100 ea 06/15/24
Review of Systems
-
History Source: Patient
A 12 point ROS was completed and negative except as noted: Yes
Constitutional: Reports Fatigue; Denies Fever or Chills
Respiratory: Reports Cough; Denies Trouble Breathing
Cardiac: Denies Chest Pain, Palpitations or Syncope
Abdomen/GI: Denies Abdominal Pain, Nausea, Vomiting or Diarrhea
: Denies Dysuria or Flank Pain
Musculoskeletal: Reports Edema; Denies Joint Pain
Neurological: Reports Weakness; Denies Dizzy
Psych: Denies Depression or Anxiety
Physical Exam
Vital Signs
Vital Signs
Temp Pulse Resp BP Pulse Ox
98.7 F 112 23 121/67 95
06/16/24 00:23 06/16/24 02:07 06/16/24 02:00 06/16/24 02:07 06/16/24 01:30
Physical Exam
General: Other (68y M in no acute distress.)
HEENT: Moist mucous membranes, PERRLA and Other (Thick neck.)
Respiratory: Other (Scattered wheezes. Few bibasilar rales.)
Cardiac: S1/S2 and Irregular Rhythm; No Murmur
GI: Other (Obese, not tender, pos BS.)
Musculoskeletal: Other (L knee incision healing well. Surrounding minor ecchymosis. 2-3+ pitting edema b/l LEs.)
Neuro: AO x 3
Laboratory Results
-
06/16/24 01:05
06/16/24 01:05
Laboratory Results
PT 16.2 Sec (11.4-14.6) H 06/16/24 01:05
INR 1.27 06/16/24 01:05
APTT 40.6 Sec (23.4-35.0) H 06/16/24 01:05
Total Bilirubin 0.9 mg/dl (0.2-1.3) 06/16/24 01:05
AST 30 U/L (17-59) 06/16/24 01:05
ALT 36 U/L (0-50) 06/16/24 01:05
Alkaline Phosphatase 167 U/L (38-126) H 06/16/24 01:05
Troponin I < 0.012 ng/ml 06/16/24 01:05
Impression/Plan
-
A/P: Patient is a 68y M with PMH significant for ASCVD, HTN and DM who presents to ED complaining of weakness and gait dysfunction.
Ambulatory Dysfunction / Fall at Home
- Admit for further evaluation and treatment.
- PT / OT evaluations.
- CM eval for possible SNF placement at discharge depending on progress.
- Follow for improvement in gait / stability / etc.
Acute on Chronic HFpEF
Pericardial Effusion
- Increased LE edema, elevated BNP and reported increased work of breathing at home (per family - patient denies).
- IV Lasix BID for now.
- Follow I/Os, daily weights, etc.
- Cardiology evaluation for additional recommendations.
- Echo just completed showing small - moderate effusion and normal LVEF.
s/p L TKA (05/17/2024)
- Stable. No evident injury to the knee during recent falls.
- PT /OT evals as noted above.
- Continue BID ASA for DVT prophylaxis.
Permanent Atrial Fibrillation
- Stable. Not on OAC due to bleeding risk - s/p Watchman device.
- Persistent tachycardia with rates > 100.
- Continue carvedilol and follow for changes.
- Adjust med regimen as needed.
DM-II
- Issues with pump function during recent admission and changed to basal : bolus subcut insulin syringes.
- Continue with Lantus 60units daily.
- SSI coverage with meals.
- A1C = 6.3% during recent admission.
Subacute Post-Op Blood Loss Anemia
- Hgb decreased following TKA done last month - slowly improving.
- Baseline Hgb = 12-14.
- Follow for continued improvement.
GLORIA on CPAP
- Stable. Continue nightly CPAP at 14cm H2O.
Morbid Obesity due to excess calories
- Affects all aspects of care.
- Encourage healthy diet and activity as tolerated with goal of weight loss.
DVT prophylaxis: BID ASA per Ortho protocols.
Code Status: Full
[2024-06-16 04:17] LABS: COVID-19 Antigen Negative (Negative)
[2024-06-16 07:02] LABS: Hematocrit 30.8 % (39.0-52.0); Hemoglobin 10.1 g/dL (13.0-18.0); Mean Corp Hgb Conc. 32.8 g/dL (33.0-37.0); Mean Corpuscular Hgb 28.5 pg (27.0-31.0); Mean Platelet Volume 8.9 fL (7.4-10.4); Platelet Count 418 10^3/uL (130-400); Red Blood Cell Count 3.54 10^6/uL (4.70-6.10); Red Cell Dist. Width 15.6 % (11.5-14.5); White Blood Cell Count 10.2 10^3/uL (4.8-10.8)
[2024-06-16 07:34] LABS: Blood Urea Nitrogen 31 mg/dl (9-20); Calcium 9.2 mg/dl (8.4-10.2); Carbon Dioxide 30 mmol/L (22-30); Chloride 105 mmol/L (98-107); Estimated Creatinine Clearance 121 ml/min; Glucose 112 mg/dl (70-99); Potassium 4.2 mmol/L (3.5-5.1); Sodium 141 mmol/L (135-145); eGFR > 60.00
[2024-06-16] MEDS: COREG 25 MG PO ×2 (08:20→20:11)
[2024-06-16] MEDS: XANAX 0.5 MG PO ×2 (08:20→20:22)
[2024-06-16] MEDS: PROTONIX 40 MG PO (08:20)
[2024-06-16] MEDS: VITAMIN D3 (cholecalciferol) 25 MCG PO (08:20)
[2024-06-16] MEDS: LIPITOR 40 MG PO (08:21)
[2024-06-16] MEDS: LEXAPRO 10 MG PO (08:21)
[2024-06-16] MEDS: NEURONTIN 300 MG PO ×2 (08:21→20:11)
[2024-06-16] MEDS: LASIX 40 MG IV ×2 (08:21→15:45)
[2024-06-16] MEDS: LOW STRENGTH ASPIRIN 81 MG PO ×2 (08:21→20:11)
[2024-06-16] MEDS: ZADITOR 1 DROP BOTH EYES ×2 (08:22→20:11)
[2024-06-16] MEDS: SYNTHROID 137 MCG PO (08:22)
[2024-06-16 08:34] LABS: Glucose - Point of Care 120 mg/dl (70-99)
[2024-06-16] MEDS: LANTUS 0.6 UNITS SC (08:38)
[2024-06-16] MEDS: NOVOLOG FLEXPEN-MODERATE RESISTANCE SC (08:39)
--- NOTE | 2024-06-16 09:27 | CM ---
Patient seen at bedside in ED. Patient left last night following discharge and insistence that he would be able to manage with walker and no assistance at home. Patient now concurs that trial at home was not successful but stated ' my surgeon
told me not to go to SNF- due to germs'. Patient now agrees to review options for SNF placement. Patient living arrangements are the same as previous admission. Patient resides alone in a first floor apartment with no stairs. Patient has a walker
and a ubaldo cane. Patient has had [facility] in the past and outpatient PT/OT.
Prior to the last admission patient was independent in ADLs and ambulation, using RW and quad cane. Patient has the following DME; Omnipod 5 Insulin pump, Dexcom, CPAP, RW, quad cane, children counselor/grabber assistive device, shower chair. Patient PCP is
Dr. Gold and he uses the [facility] [address] [place].
Patient seen prior to discharge yesterday when patient was discharged. CM made patient and physician aware of PT recommendation for SNF but patient stated I was told I am going home. Son arrived to transport patient home for outpatient follow up at
patient request.
Patient now on O2 3 liters at 98%. CM reviewed discharge plan and patient agreed to consider options. CM provided list of SNF's in area from [employer], post acute options. CM updated nursing and will continue to follow for discharge planning
needs.
Plan; SNF vs home with VN; watch for pt/ot assessment and O2 assessment
--- NOTE | 2024-06-16 10:29 | W.PN.HOSP.TC ---
Today's Communication/Plan
-
Short course of IV Lasix
PT and OT
Cardiology consult
Telemetry
Assessment / Plan
Assessment / Plan
#Acute hypoxemic respiratory insufficiency
#Acute on chronic HFpEF
-Has required up to 3 L your; recently discharged on oral Lasix for HFpEF; converted to IV on admission
-Not currently on GDMT for HFpEF though would likely benefit from SGLT2 inhibitor
-Mildly hypervolemic compared to baseline; warm and wet phenotype
-As of this morning remains on 2 L oxygen, SpO2 in the mid 90s
-Continue short course of IV Lasix at 40 mg BID; I/Os, BMP, weights
-SpO2 goal >90% for now, wean as appropriate
-Monitor on telemetry
#Ambulatory dysfunction
-Patient recently discharged from hospital, went home and had 2 mechanical falls
-He is now amenable to SNF placement, PT evaluated on morning of 06/16
-Case management appreciated for placement
#Small pericardial effusion
-CT on arrival showed moderate pleural effusion, follow-up TTE showed small effusion
-No signs of tamponade physiology on echo, found to be stable over 2 echoes on recent hospitalization
-Denies recent viral prodrome, though cannot rule out viral etiology completely
-Plan to have repeat echocardiogram in 3 to 4 weeks as OP with cardiology
#Normocytic anemia
-Acute to subacute, hemoglobin and April was near 14, presented with hemoglobin 9.5-9.0
-Recent Iron studies consistent with anemia of chronic disease, high ferritin and low TIBC
-No obvious signs of bleeding at this time; will monitor for bloody stool and other sources
-With elevated D-dimer, no signs of thrombosis, cannot rule out recurrent malignancy
-Trend CBC for now
#AF with RVR
#AF s/p Watchman
-Home regimen includes carvedilol 25 mg twice daily; no longer on AC due to bleeding
-Status post Watchman device, remains on baby aspirin which is currently twice daily for DVT prophylaxis
-Upon arrival head heart rate between 100-120/min, remained hemodynamically stable after initial IVF
-Suspect RVR is associated with hypovolemic state; s/p IV fluids
-Consider transition from carvedilol to metoprolol versus rhythm control
-Monitor on telemetry
#IDDM with continuous glucometer and insulin pump
#Malfunctioning insulin pump and glucometer
-A1c here 6.3%; currently well-controlled with glucometer and insulin regimen
-On recent hospital stay had malfunction of his insulin pump, transition to subcu
-Continue with transition to 60 units Lantus daily + ISS pending new pump
-Follows outpatient with endocrinology in [place], Dr. Gold
#Elevated D-dimer
#H/O colon cancer s/p robotic colectomy
-On most recent hospital stay had elevated D-dimer and leukocytosis; PE/DVT was ruled out
-Should have outpatient follow-up with oncology/PCP for further investigation
#S/p left total knee arthroplasty on 05/17/2024
#DVT prophylaxis with 81 mg aspirin twice daily
-Remains on twice daily baby aspirin
-Surgical scar appears well-approximated, no signs of infection
#Recent prerenal acute kidney injury
#Recent hospital stay with hypotension
-Recently discharged from hospital stay with prerenal SAMI and hypotension
-Blood pressure regimen was adjusted, continued on carvedilol; amlodipine, valsartan, hydralazine stopped
-Was also started on Lasix for HFpEF
-Renal function and BP normal upon this admission
#GLORIA on CPAP
-No evidence of pulmonary hypertension
-Wears CPAP 14 mmHg nightly
#H/O right sided colon cancer s/p colectomy
#Morbid obesity
DVT prophylaxis: Twice daily aspirin
Diet: Carbohydrate controlled
CODE STATUS: Full code
Disposition: SNF, patient amenable
Anticipated Discharge: 24 - 48 hours
Subjective/Interval History
-
Date of Service: June 16, 2024
Seen and examined at the bedside. No acute events reported overnight. AFVSS on 2 L O2 today, SpO2 mid 90s
Patient states he had 2 mechanical falls where he slipped while using the bathroom, then slipped out of his bed. States he does not have the strength that he used to, is open now to going to SNF for short-term rehab
Denies any new complaints other than general weakness
Objective Data
-
Labs:
Laboratory Results
06/16/24 06/16/24
01:05 06:55
WBC 10.8 10.2
Hgb 10.5 L 10.1 L
Hct 31.1 L 30.8 L
Plt Count 423 H 418 H
PT 16.2 H
INR 1.27
APTT 40.6 H
Sodium 139 141
Potassium 4.5 4.2
Chloride 104 105
Carbon Dioxide 30 30
BUN 36 H 31 H
Creatinine 0.9 0.8
Glucose 101 H 112 H
Calcium 9.2 9.2
Total Bilirubin 0.9
AST 30
ALT 36
Alkaline Phosphatase 167 H
Vital Signs:
Vital Signs
Temp Pulse Resp BP Pulse Ox
98.2 F 105 16 131/78 100
06/16/24 08:24 06/16/24 08:24 06/16/24 08:24 06/16/24 08:24 06/16/24 09:43
I&O
06/15/24 06/16/24 06/17/24
06:59 06:59 06:59
Output Total 1100 / 1100
Balance -1100 / -1100
Review of Systems
-
History Source: Patient
All other systems: Reviewed and negative
Physical Exam
-
General: Well Developed, No Apparent Distress and Morbidly Obese
HEENT: Normocephalic, Atraumatic and Moist Mucous Membranes
Respiratory: Clear to Auscultation and Non Labored Respirations
Cardiac: S1/S2, Irregular Rhythm and Tachycardic; Negative Murmur, Rub, JVD or Gallop
GI: Soft, Nontender, Nondistended and Normal Bowel Sounds
Musculoskeletal: No Clubbing, No Cyanosis and Other (1+ edema)
Skin: Warm, Dry and Normal Turgor; Negative Rash
Neuro: AO x 3 and Nonfocal/Grossly Intact
Psych: Calm
Data Reviewed
-
Labs: Labs Reviewed by me and Discussed with Patient
[2024-06-16 12:51] LABS: Glucose - Point of Care 182 mg/dl (70-99)
[2024-06-16] MEDS: NOVOLOG FLEXPEN-MODERATE RESISTANCE 1 UNITS SC (13:06)
--- NOTE | 2024-06-16 13:51 | W.PN.CARDCBS ---
Today's Communication / Plan
-
Readmitted within 24 hours with recurrent falls and acute diastolic CHF
Continue IV Lasix
Likely needs rehab
Impression / Plan
-
Primary Covered Buckle Assembler: Dr. Uriarte
Assessment:
Readmission within 24 hours on 06/16/2024 with recurrent falls
Acute diastolic CHF
Pericardial effusion, small to moderate and stable on 06/14/24
Permanent Afib
Not chronically anticoagulated due to watchman in place
s/p Watchman YANICK occlusion ([place])for h/o recurrent GIB 06/2021
with post 6 month and 12 month TOREY without leak and is now on aspirinAnemia
GLORIA, on CPAP
DM
HTN
Hypothyroidism
Colon cancer s/p colectomy at 2023
s/p LTKA 05/17/24 at .
Echo 06/12/24: EF 65 to 70%, normal RV size and function, mild TR with PAP 50 mmHg, moderate pericardial effusion without evidence of hemodynamic compromise, mildly dilated aortic root sinus of Valsalva is 3.9 cm, no prior echo for comparison
Echo limited 06/14/2024: EF preserved, small to moderate circumferential pericardial effusion without evidence of hemodynamic compromise and stable compared to echo 06/12/2024
Plan:
He was readmitted within 24 hours after 2 falls.
He has signs and symptoms of acute diastolic CHF
Will continue with IV Lasix
Repeat echocardiogram as outpatient in 3 to 4 weeks for small to moderate pericardial effusion which was stable on 06/14/2024
Continue Coreg 25 mg BID. Outpatient dose of amlodipine 5 mg daily, hydralazine 50 mg BID and valsartan 320 mg on hold due to hypotension.
Patient with known permanent Afib. Patient has history of Watchman due to history of GI bleed and therefore and is not on OAC. Continue aspirin 81 mg
Likely needs rehab
HPI 06/12/2024:
He was recently transferred his care from [place] to the [facility].
He has h/o persistent (permanent?) AF. Watchman 06/2021 with post 6 month and 12 month TOREY without leak and is now on aspirin ([place]) . He had GI bleeding. TOREY 2022 with normal EF% and no significant valvular disease.�
Medical records also indicate h/o GLORIA (on CPAP), HTN, DM, hypothyroidism, colon cancer s/p colectomy and most recently s/p LTKA 05/17/24 at .
He presented to the ED after multiple falls over the last 2 days, denies head injury or loss of consciousness.
He and his son describe that twice yesterday he fell after sitting on toilet for a prolonged period of time, his legs became numb, wehen he stodd he fell over - no LOC
Today he had a mechanical fall while walking - no LOC
Upon arrival to ED he was mildly tachycardic, tachypneic and hypotensive. Afebrile. Hypotensive with quick response to IVFs fluids.
Initial labs with WBC 12.6, hemoglobin 9.5, creatinine 2.0, BUN 57, albumin 2.7, D-dimer 4.75. Chest x-ray showed small bilateral pleural effusions. Lower extremity venous ultrasound without signs of DVTs. CTA thorax PE study did not show any
evidence of pulmonary emboli, showed a moderate pericardial effusion and small bilateral pleural effusions. ECG showed AF with RVR, low voltage QRS.
Cardiology is consulted regarding CT finding of pericardial effusion.
Progress Note - Covered Buckle Assembler
Subjective
Date of Service: June 16, 2024
No complaints
Objective
Labs:
06/16/24 06:55
06/16/24 06:55
Labs
Hgb 10.1 g/dL (13.0-18.0) L 06/16/24 06:55
Hct 30.8 % (39.0-52.0) L 06/16/24 06:55
Plt Count 418 10^3/uL (130-400) H 06/16/24 06:55
PT 16.2 Sec (11.4-14.6) H 06/16/24 01:05
INR 1.27 06/16/24 01:05
APTT 40.6 Sec (23.4-35.0) H 06/16/24 01:05
Sodium 141 mmol/L (135-145) 06/16/24 06:55
Potassium 4.2 mmol/L (3.5-5.1) 06/16/24 06:55
BUN 31 mg/dl (9-20) H 06/16/24 06:55
Creatinine 0.8 mg/dL (0.7-1.3) 06/16/24 06:55
Glucose 112 mg/dl (70-99) H 06/16/24 06:55
Troponins
06/16/24
01:05
Troponin I < 0.012
Vital Signs and I&O:
Vital Signs
Temp Pulse Resp BP Pulse Ox
98.4 F 120 19 108/74 95
06/16/24 13:47 06/16/24 13:48 06/16/24 12:00 06/16/24 13:48 06/16/24 13:48
Vital Signs
Temp Pulse Resp BP Pulse Ox
98.4 F 120 19 108/74 95
06/16/24 13:47 06/16/24 13:48 06/16/24 12:00 06/16/24 13:48 06/16/24 13:48
Intake & Output
06/14/24 06/15/24 06/16/24 06/17/24
06:59 06:59 06:59 06:59
Output Total 1100 / 1100
Balance -1100 / -1100
Physical Exam
Physical Exam
General: Well developed, well nourished in NAD.
Neck: Supple, no JVD, HJR, carotids +2 B/L, no bruits bilaterally.
Heart: Non displaced PMI, irregular, no murmurs, No S3, S4, no rubs.
Lungs: Scattered rhonchi at the bases
Extremities: No clubbing, cyanosis or edema bilaterally.
Neuro: Grossly nonfocal, awake, alert and oriented x3.
[2024-06-16 16:07] LABS: Glucose - Point of Care 210 mg/dl (70-99)
[2024-06-16] MEDS: NOVOLOG FLEXPEN-MODERATE RESISTANCE 3 UNITS SC (16:29)
[2024-06-16 18:05] LABS: Glucose - Point of Care 273 mg/dl (70-99)
[2024-06-16 20:29] LABS: Glucose - Point of Care 228 mg/dl (70-99)
[2024-06-16 21:38] LABS: Glucose - Point of Care 249 mg/dl (70-99)
[2024-06-17] VITALS (8 sets, daily range): BP systolic 101–142; BP diastolic 61–83; PULSE 97–122; BMI 41.6
[2024-06-17] MEDS: SYNTHROID 137 MCG PO (06:37)
[2024-06-17 07:19] LABS: Glucose - Point of Care 182 mg/dl (70-99)
[2024-06-17] MEDS: COREG 25 MG PO ×2 (07:33→19:56)
[2024-06-17] MEDS: LOW STRENGTH ASPIRIN 81 MG PO ×2 (07:33→19:56)
[2024-06-17] MEDS: LEXAPRO 10 MG PO (07:34)
[2024-06-17] MEDS: NOVOLOG FLEXPEN-MODERATE RESISTANCE 1 UNITS SC ×2 (07:34→11:42)
[2024-06-17] MEDS: NEURONTIN 300 MG PO ×2 (07:34→19:56)
[2024-06-17] MEDS: LASIX 40 MG IV ×2 (07:34→15:46)
[2024-06-17] MEDS: PROTONIX 40 MG PO (07:34)
[2024-06-17] MEDS: LIPITOR 40 MG PO (07:34)
[2024-06-17] MEDS: VITAMIN D3 (cholecalciferol) 25 MCG PO (07:34)
[2024-06-17] MEDS: ZADITOR 1 DROP BOTH EYES ×2 (07:38→19:57)
[2024-06-17] MEDS: LANTUS 0.6 UNITS SC (07:47)
[2024-06-17] MEDS: XANAX 0.5 MG PO ×2 (07:47→19:59)
[2024-06-17 08:01] LABS: % Basophils 0.4 % (0-2); % Eosinophils 4.1 % (0-6); % Immature Granulocytes 0.8 % (0-0.5); % Lymphocytes 13.4 % (20.5-51.1); % Monocytes 10.9 % (1.7-9.3); % Neutrophils 70.4 % (42.2-75.2); Absolute Eosinophils 0.3 10^3/uL (0-0.7); Absolute Immature Granulocytes 0.1 10^3/uL (0-0.05); Absolute Lymphocytes 1.1 10^3/uL (1.2-3.4); Absolute Monocytes 0.9 10^3/uL (0.1-0.6); Absolute Neutrophils 5.6 10^3/uL (1.4-6.5); Hematocrit 29.3 % (39.0-52.0); Hemoglobin 9.7 g/dL (13.0-18.0); Mean Corp Hgb Conc. 33.1 g/dL (33.0-37.0); Mean Corpuscular Hgb 28.7 pg (27.0-31.0); Mean Corpuscular Volume 86.7 fL (80.0-94.0); Mean Platelet Volume 9.8 fL (7.4-10.4); Nucleated Red Blood Cells % 0 % (-); Platelet Count 402 10^3/uL (130-400); Red Blood Cell Count 3.38 10^6/uL (4.70-6.10); Red Cell Dist. Width 15.8 % (11.5-14.5)
--- NOTE | 2024-06-17 08:38 | W.PN.HOSP.TC ---
Today's Communication/Plan
-
Continue IV diuresis
May need Amiodarone and reduction of Coreg
Assessment / Plan
Assessment / Plan
Physical Exam
General: Well Developed, No Apparent Distress and Morbidly Obese
HEENT: Normocephalic, Atraumatic and Moist Mucous Membranes
Respiratory: Rhonchi bilaterally
Cardiac: S1/S2, Irregular Rhythm and Tachycardic
GI: Soft, Nontender, Nondistended and Normal Bowel Sounds
Musculoskeletal: No Cyanosis and Other (1+ edema)
Skin: Warm, Dry and Normal Turgor
Neuro: AO x 3 and Nonfocal/Grossly Intact
Psych: Calm
Assessment/Plan
68-year-old male who was discharged on Saturday June 15, 2024 following hospitalization with hypotension, pleural effusion, SAMI. Blood pressure regimen was de-escalated and renal function stabilized. On June 15, 2024, he refused SNF at time of
discharge, had 2 mechanical falls when he returned home. Currently on short course of IV Lasix, cardiology reconsulted. Amenable to SNF placement now
#Acute hypoxemic respiratory insufficiency
#Acute on chronic HFpEF
-Has required up to 3 L your; recently discharged on oral Lasix for HFpEF; converted to IV on admission
-Not currently on GDMT for HFpEF though would likely benefit from SGLT2 inhibitor
-Mildly hypervolemic compared to baseline; warm and wet phenotype
-As of this morning remains on 3 L oxygen, SpO2 in the 90s
-Continue IV Lasix at 40 mg BID; I/Os, BMP, weights
-SpO2 goal >90% for now, wean as appropriate
-Monitor on telemetry
#Ambulatory dysfunction
-Patient recently discharged from hospital, went home and had 2 mechanical falls
-He is now amenable to SNF placement, PT evaluated on morning of 06/16
-Case management appreciated for placement
#Small pericardial effusion
-CT on arrival showed moderate pleural effusion, follow-up TTE showed small effusion
-No signs of tamponade physiology on echo, found to be stable over 2 echoes on recent hospitalization
-Denies recent viral prodrome, though cannot rule out viral etiology completely
-Plan to have repeat echocardiogram in 3 to 4 weeks as OP with cardiology
#Normocytic anemia
-Acute to subacute, hemoglobin and April was near 14, presented with hemoglobin 9.5-9.0
-Recent Iron studies consistent with anemia of chronic disease, high ferritin and low TIBC
-No obvious signs of bleeding at this time; will monitor for bloody stool and other sources
-With elevated D-dimer, no signs of thrombosis, cannot rule out recurrent malignancy
-Trend CBC for now
#AF with RVR
#AF s/p Watchman
-Home regimen includes carvedilol 25 mg twice daily; no longer on AC due to bleeding
-Status post Watchman device, remains on baby aspirin which is currently twice daily for DVT prophylaxis
-Upon arrival head heart rate between 100-120/min, remained hemodynamically stable after initial IVF
-Suspect RVR is associated with hypovolemic state; s/p IV fluids
-Consider transition from carvedilol to metoprolol versus rhythm control: but may need to consider decreasing Coreg if orthostatic vital signs are abnormal, and may need amiodarone for rapid heart rate of A-fib at times.
-Monitor on telemetry
#IDDM with continuous glucometer and insulin pump
#Malfunctioning insulin pump and glucometer
-A1c here 6.3%; currently well-controlled with glucometer and insulin regimen
-On recent hospital stay had malfunction of his insulin pump, transition to subcu
-Continue with transition to 60 units Lantus daily + ISS pending new pump
-Follows outpatient with endocrinology in [place], Dr. Gold
#Elevated D-dimer
#H/O colon cancer s/p robotic colectomy
-On most recent hospital stay had elevated D-dimer and leukocytosis; PE/DVT was ruled out
-Should have outpatient follow-up with oncology/PCP for further investigation
#S/p left total knee arthroplasty on 05/17/2024
#DVT prophylaxis with 81 mg aspirin twice daily
-Remains on twice daily baby aspirin
-Surgical scar appears well-approximated, no signs of infection
#Recent prerenal acute kidney injury
#Recent hospital stay with hypotension
-Recently discharged from hospital stay with prerenal SAMI and hypotension
-Blood pressure regimen was adjusted, continued on carvedilol; amlodipine, valsartan, hydralazine stopped
-Was also started on Lasix for HFpEF
-Renal function and BP normal upon this admission
#GLORIA on CPAP
-No evidence of pulmonary hypertension
-Wears CPAP 14 mmHg nightly
#H/O right sided colon cancer s/p colectomy
#Morbid obesity
DVT prophylaxis: Lovenox subq
Diet: Carbohydrate controlled
CODE STATUS: Full code
Disposition: SNF, patient amenable
Anticipated Discharge: > 48 hours
Subjective/Interval History
-
Date of Service: June 17, 2024
Patient was seen and examined. He denied any chest pain, shortness of breath or any other complaints.
Objective Data
-
Labs:
Laboratory Results
06/17/24
07:11
WBC 8.0
Hgb 9.7 L
Hct 29.3 L
Plt Count 402 H
Sodium Pending
Potassium Pending
Chloride Pending
Carbon Dioxide Pending
BUN Pending
Creatinine Pending
Glucose Pending
Calcium Pending
Vital Signs:
Vital Signs
Temp Pulse Resp BP Pulse Ox
97.6 F 117 19 107/75 92
06/17/24 07:54 06/17/24 07:54 06/17/24 07:54 06/17/24 07:54 06/17/24 07:54
I&O
06/16/24 06/17/24 06/18/24
06:59 06:59 06:59
Intake Total 1200 / 1200
Output Total 1100 / 1100 1200 / 1200
Balance -1100 / -1100 0 / 0
[2024-06-17 09:05] LABS: Blood Urea Nitrogen 26 mg/dl (9-20); Calcium 8.8 mg/dl (8.4-10.2); Carbon Dioxide 30 mmol/L (22-30); Chloride 103 mmol/L (98-107); Estimated Creatinine Clearance 117 ml/min; Glucose 159 mg/dl (70-99); Potassium 4.4 mmol/L (3.5-5.1); Sodium 140 mmol/L (135-145); eGFR > 60.00
[2024-06-17 11:20] LABS: Glucose - Point of Care 179 mg/dl (70-99)
--- NOTE | 2024-06-17 11:38 | W.PN.CARDCBS ---
Addendum entered and electronically signed by Brian Watters MD 06/17/24 12:43:
I saw and examined the patient.
The BOILER HOUSE INSPECTOR or PA's note was reviewed and I agree with the note.
Comment: General: Well developed, well nourished in NAD.
Neck: Supple, no JVD, HJR, carotids +2 B/L, no bruits bilaterally.
Heart: Non displaced PMI, irregular, no murmurs, No S3, S4, no rubs.
Lungs: Scattered rhonchi
Extremities: No clubbing, cyanosis or edema bilaterally.
Neuro: Grossly nonfocal, awake, alert and oriented x3.
Continue IV diuresis. May need to consider decreasing Coreg if orthostatic vital signs are abnormal. May need amiodarone for rapid heart rate of A-fib at times. He is for PT/OT eval and may need rehab.
Original Note:
Today's Communication / Plan
-
Check orthostatic vitals
Consider reduction of carvedilol if ongoing hypotension
If hypotension prevents reduction of carvedilol could consider addition of amiodarone for rate control
PT/OT
Impression / Plan
-
Primary Community Organization Director: Dr. Uriarte
Assessment:
Readmission within 24 hours on 06/16/2024 with recurrent falls
Acute heart failure with preserved ejection fraction, proBNP 3260
Pericardial effusion, small to moderate and stable on 06/14/24
Hypotension
Permanent Afib
Not chronically anticoagulated due to watchman in place
s/p Watchman YANICK occlusion ([place])for h/o recurrent GIB 06/2021
with post 6 month and 12 month TOREY without leak and is now on aspirinAnemia
GLORIA, on CPAP
DM
HTN
Hypothyroidism
Colon cancer s/p colectomy at 2023
s/p LTKA 05/17/24 at .
Echo 06/12/24: EF 65 to 70%, normal RV size and function, mild TR with PAP 50 mmHg, moderate pericardial effusion without evidence of hemodynamic compromise, mildly dilated aortic root sinus of Valsalva is 3.9 cm, no prior echo for comparison
Echo limited 06/14/2024: EF preserved, small to moderate circumferential pericardial effusion without evidence of hemodynamic compromise and stable compared to echo 06/12/2024
Plan:
Recent admission 06/12/2024 with falls, multifactorial hypotension and respiratory insufficiency. Discharged home on 06/15/2024 off hydralazine amlodipine and valsartan due to ongoing hypotension.
He was readmitted within 24 hours (06/16/2024) after 2 falls.
Heart failure with preserved ejection fraction, proBNP 3260
-Ongoing diuresis with IV Lasix 40 mg IV twice daily
- Still requiring 3 L of oxygen via nasal cannula
-CT of chest 06/12/2024 without PE. Small bilateral pleural effusions and pericardial effusion noted
Blood pressure remains on the low side. Would consider reducing carvedilol to 12.5 mg twice a day.
-Patient was taken off Outpatient dose of amlodipine 5 mg daily, hydralazine 50 mg BID and valsartan 320 mg on hold due to hypotension during recent admission 06/12/2024. All remain on hold/discontinue
- Check orthostatics
Small to moderate pericardial effusion
-Echo checked 06/14/2024 which showed stable effusion without hemodynamic compromise
-Repeat echocardiogram as outpatient in 3 to 4 weeks
Permanent Afib.
-Heart rates remain poorly controlled. May be exacerbating hypotension.
-On high dose Coreg. Would consider amiodarone for rate control and reduction of carvedilol
-History of Watchman due to history of GI bleed and therefore and is not on OAC.
-Continue aspirin 81 mg
Frequent falls.
-Denies dysuria. Consider checking urine analysis to rule out UTI as cause of hypotension and ongoing falls
-PT/OT and likely would benefit from rehab
HPI 06/12/2024:
He was recently transferred his care [facility] to the [facility].
He has h/o persistent (permanent?) AF. Watchman 06/2021 with post 6 month and 12 month TOREY without leak and is now on aspirin ([facility]) . He had GI bleeding. TOREY 2022 with normal EF% and no significant valvular disease.�
Medical records also indicate h/o GLORIA (on CPAP), HTN, DM, hypothyroidism, colon cancer s/p colectomy and most recently s/p LTKA 05/17/24 at .
He presented to the ED after multiple falls over the last 2 days, denies head injury or loss of consciousness.
He and his son describe that twice yesterday he fell after sitting on toilet for a prolonged period of time, his legs became numb, wehen he stodd he fell over - no LOC
Today he had a mechanical fall while walking - no LOC
Upon arrival to ED he was mildly tachycardic, tachypneic and hypotensive. Afebrile. Hypotensive with quick response to IVFs fluids.
Initial labs with WBC 12.6, hemoglobin 9.5, creatinine 2.0, BUN 57, albumin 2.7, D-dimer 4.75. Chest x-ray showed small bilateral pleural effusions. Lower extremity venous ultrasound without signs of DVTs. CTA thorax PE study did not show any
evidence of pulmonary emboli, showed a moderate pericardial effusion and small bilateral pleural effusions. ECG showed AF with RVR, low voltage QRS.
Cardiology is consulted regarding CT finding of pericardial effusion.
Progress Note - Community Organization Director
Subjective
Date of Service: June 17, 2024
Patient seen and examined. Patient sitting in chair. Patient reports continues to have issues with balance and some mild dyspnea.
Objective
Labs:
06/17/24 07:11
06/17/24 07:11
Labs
Hgb 9.7 g/dL (13.0-18.0) L 06/17/24 07:11
Hct 29.3 % (39.0-52.0) L 06/17/24 07:11
Plt Count 402 10^3/uL (130-400) H 06/17/24 07:11
PT 16.2 Sec (11.4-14.6) H 06/16/24 01:05
INR 1.27 06/16/24 01:05
APTT 40.6 Sec (23.4-35.0) H 06/16/24 01:05
Sodium 140 mmol/L (135-145) 06/17/24 07:11
Potassium 4.4 mmol/L (3.5-5.1) 06/17/24 07:11
BUN 26 mg/dl (9-20) H 06/17/24 07:11
Creatinine 0.8 mg/dL (0.7-1.3) 06/17/24 07:11
Glucose 159 mg/dl (70-99) H 06/17/24 07:11
Troponins
06/16/24
01:05
Troponin I < 0.012
Vital Signs and I&O:
Vital Signs
Temp Pulse Resp BP Pulse Ox
98.6 F 117 19 101/61 92
06/17/24 11:25 06/17/24 11:25 06/17/24 11:25 06/17/24 11:25 06/17/24 11:25
Vital Signs
Temp Pulse Resp BP Pulse Ox
98.6 F 117 19 101/61 92
06/17/24 11:25 06/17/24 11:25 06/17/24 11:25 06/17/24 11:25 06/17/24 11:25
Intake & Output
06/15/24 06/16/24 06/17/24 06/18/24
06:59 06:59 06:59 06:59
Intake Total 1200 / 1200
Output Total 1100 / 1100 1200 / 1200
Balance -1100 / -1100 0 / 0
Physical Exam
Physical Exam
GEN: No distress, awake, Ox3, sitting in chair;
HEENT: supple, anicteric, mmm
LUNGS: Absent breath sound at left base and mildly creased at right base otherwise CTA, no wheezes/rales; wearing oxygen via nasal cannula
CV: Irregularly irregular, tachycardic, S1/S2, no murmur, rub or gallop
ABD: soft, BS+, NT/ND, obese
EXT: +1 lower extremity edema bilaterally, no clubbing or cyanosis
NEURO: Gross non-focal
SKIN: No rash, warm, dry, pink
--- NOTE | 2024-06-17 12:06 | CM ---
Reviewed the chart notes and spoke with the patient at the bedside. Discussed area SNFs. Patient selected five. Referrals sent via [facility]. CM continues to be available to patient/family and is monitoring medical plan for needs at discharge.
Plan: Discharge to SNF/rehab when medically stable and bed secured. No precert required.
[2024-06-17 16:01] LABS: Glucose - Point of Care 135 mg/dl (70-99)
[2024-06-17] MEDS: NOVOLOG FLEXPEN-MODERATE RESISTANCE SC (16:18)
[2024-06-17] MEDS: LOVENOX 40 MG SC (17:40)
--- NOTE | 2024-06-17 18:31 | W.PN.UPDATE ---
Update Note
Progress Note Update
Just now, I called patient's daughter Verenice, and explained current medical conditions and management. I answered all of Verenice's questions and concerns to satisfaction.
[2024-06-17 21:35] LABS: Glucose - Point of Care 144 mg/dl (70-99)
[2024-06-18] VITALS (7 sets, daily range): BP systolic 111–138; BP diastolic 67–83; BMI 41.5
[2024-06-18] MEDS: SYNTHROID 137 MCG PO (06:26)
[2024-06-18] MEDS: LOVENOX 40 MG SC ×2 (06:26→17:32)
[2024-06-18 07:23] LABS: Glucose - Point of Care 117 mg/dl (70-99)
[2024-06-18] MEDS: NOVOLOG FLEXPEN-MODERATE RESISTANCE SC ×2 (07:36→16:35)
[2024-06-18] MEDS: XANAX 0.5 MG PO ×2 (07:45→20:09)
[2024-06-18] MEDS: LOW STRENGTH ASPIRIN 81 MG PO ×2 (07:45→20:00)
[2024-06-18] MEDS: NEURONTIN 300 MG PO ×2 (07:45→19:59)
[2024-06-18] MEDS: LIPITOR 40 MG PO (07:45)
[2024-06-18] MEDS: VITAMIN D3 (cholecalciferol) 25 MCG PO (07:46)
[2024-06-18] MEDS: COREG 25 MG PO ×2 (07:46→19:46)
[2024-06-18] MEDS: PROTONIX 40 MG PO (07:46)
[2024-06-18] MEDS: LASIX 40 MG IV ×2 (07:46→15:27)
[2024-06-18] MEDS: LEXAPRO 10 MG PO (07:46)
[2024-06-18] MEDS: ZADITOR 1 DROP BOTH EYES ×2 (07:47→20:02)
[2024-06-18] MEDS: LANTUS 0.6 UNITS SC (08:12)
[2024-06-18 08:17] LABS: Hematocrit 30.7 % (39.0-52.0); Hemoglobin 9.9 g/dL (13.0-18.0); Mean Corp Hgb Conc. 32.2 g/dL (33.0-37.0); Mean Corpuscular Hgb 28.3 pg (27.0-31.0); Mean Corpuscular Volume 87.7 fL (80.0-94.0); Mean Platelet Volume 9.5 fL (7.4-10.4); Platelet Count 408 10^3/uL (130-400); Red Cell Dist. Width 15.9 % (11.5-14.5); White Blood Cell Count 7.8 10^3/uL (4.8-10.8)
[2024-06-18 08:57] LABS: Blood Urea Nitrogen 26 mg/dl (9-20); Calcium 9.1 mg/dl (8.4-10.2); Carbon Dioxide 31 mmol/L (22-30); Chloride 103 mmol/L (98-107); Estimated Creatinine Clearance 117 ml/min; Glucose 104 mg/dl (70-99); Magnesium 1.6 mg/dl (1.6-2.3); Potassium 4.2 mmol/L (3.5-5.1); Sodium 142 mmol/L (135-145); eGFR > 60.00
--- NOTE | 2024-06-18 10:44 | W.PN.CARDCBS ---
Today's Communication / Plan
-
Weight seems to be plateauing and made changed to p.o. Lasix on 06/19
Heart rate control in A-fib is suboptimal at times and may be consider amiodarone as already on high-dose Coreg and blood pressure is borderline with some evidence of orthostasis on 06/17
Eventual rehab
Impression / Plan
-
Primary [employer]: Dr. Uriarte
Assessment:
Readmission within 24 hours on 06/16/2024 with recurrent falls
Acute heart failure with preserved ejection fraction, proBNP 3260
Pericardial effusion, small to moderate and stable on 06/14/24
Hypotension
Permanent Afib
Not chronically anticoagulated due to watchman in place
s/p Watchman YANICK occlusion ([place])for h/o recurrent GIB 06/2021
with post 6 month and 12 month TOREY without leak and is now on aspirinAnemia
GLORIA, on CPAP
DM
HTN
Hypothyroidism
Colon cancer s/p colectomy at 2023
s/p LTKA 05/17/24 at .
Echo 06/12/24: EF 65 to 70%, normal RV size and function, mild TR with PAP 50 mmHg, moderate pericardial effusion without evidence of hemodynamic compromise, mildly dilated aortic root sinus of Valsalva is 3.9 cm, no prior echo for comparison
Echo limited 06/14/2024: EF preserved, small to moderate circumferential pericardial effusion without evidence of hemodynamic compromise and stable compared to echo 06/12/2024
Plan:
Weight seems to be plateauing and may be reaching dry weight
Will continue IV Lasix for another 24 hours and consider change to oral Lasix from 06/19
He is currently on room air
Heart rate control in A-fib appears to be suboptimal but blood pressure is borderline as well and was some orthostasis on 06/17
May need to consider adding amiodarone but hold off for now
Will need repeat echo in outpatient 3 to 4 weeks to follow small to moderate pericardial effusion
Will likely need rehab for frequent falls
HPI 06/12/2024:
He was recently transferred his care from [place] to the [facility].
He has h/o persistent (permanent?) AF. Watchman 06/2021 with post 6 month and 12 month TOREY without leak and is now on aspirin ([place]) . He had GI bleeding. TORYE 2022 with normal EF% and no significant valvular disease.�
Medical records also indicate h/o GLORIA (on CPAP), HTN, DM, hypothyroidism, colon cancer s/p colectomy and most recently s/p LTKA 05/17/24 at .
He presented to the ED after multiple falls over the last 2 days, denies head injury or loss of consciousness.
He and his son describe that twice yesterday he fell after sitting on toilet for a prolonged period of time, his legs became numb, wehen he stodd he fell over - no LOC
Today he had a mechanical fall while walking - no LOC
Upon arrival to ED he was mildly tachycardic, tachypneic and hypotensive. Afebrile. Hypotensive with quick response to IVFs fluids.
Initial labs with WBC 12.6, hemoglobin 9.5, creatinine 2.0, BUN 57, albumin 2.7, D-dimer 4.75. Chest x-ray showed small bilateral pleural effusions. Lower extremity venous ultrasound without signs of DVTs. CTA thorax PE study did not show any
evidence of pulmonary emboli, showed a moderate pericardial effusion and small bilateral pleural effusions. ECG showed AF with RVR, low voltage QRS.
Cardiology is consulted regarding CT finding of pericardial effusion.
Progress Note - Evp Marketing
Subjective
Date of Service: June 18, 2024
No complaints
Objective
Labs:
06/18/24 06:48
06/18/24 06:48
Labs
Hgb 9.9 g/dL (13.0-18.0) L 06/18/24 06:48
Hct 30.7 % (39.0-52.0) L 06/18/24 06:48
Plt Count 408 10^3/uL (130-400) H 06/18/24 06:48
PT 16.2 Sec (11.4-14.6) H 06/16/24 01:05
INR 1.27 06/16/24 01:05
APTT 40.6 Sec (23.4-35.0) H 06/16/24 01:05
Sodium 142 mmol/L (135-145) 06/18/24 06:48
Potassium 4.2 mmol/L (3.5-5.1) 06/18/24 06:48
BUN 26 mg/dl (9-20) H 06/18/24 06:48
Creatinine 0.8 mg/dL (0.7-1.3) 06/18/24 06:48
Glucose 104 mg/dl (70-99) H 06/18/24 06:48
Troponins
06/16/24
01:05
Troponin I < 0.012
Vital Signs and I&O:
Vital Signs
Temp Pulse Resp BP Pulse Ox
98.2 F 113 18 111/72 94
06/18/24 07:00 06/18/24 07:46 06/18/24 03:09 06/18/24 07:46 06/18/24 07:00
Vital Signs
Temp Pulse Resp BP Pulse Ox
98.2 F 113 18 111/72 94
06/18/24 07:00 06/18/24 07:46 06/18/24 03:09 06/18/24 07:46 06/18/24 07:00
Intake & Output
06/16/24 06/17/24 06/18/24 06/19/24
06:59 06:59 06:59 06:59
Intake Total 1200 / 1200 1140 / 1140
Output Total 1100 / 1100 1200 / 1200 400 / 400 700 / 700
Balance -1100 / -1100 0 / 0 740 / 740 -700 / -700
Physical Exam
Physical Exam
General: Well developed, well nourished in NAD.
Neck: Supple, no JVD, HJR, carotids +2 B/L, no bruits bilaterally.
Heart: Non displaced PMI, irregular, no murmurs, No S3, S4, no rubs.
Lungs: Scattered rhonchi
Extremities: No clubbing, cyanosis or edema bilaterally.
Neuro: Grossly nonfocal, awake, alert and oriented x3.
[2024-06-18 11:57] LABS: Glucose - Point of Care 165 mg/dl (70-99)
[2024-06-18] MEDS: NOVOLOG FLEXPEN-MODERATE RESISTANCE 1 UNITS SC (11:58)
--- NOTE | 2024-06-18 13:31 | W.PN.HOSP.TC ---
Addendum entered and electronically signed by Heriberto Blanco MD 06/18/24 13:47:
According to cardiology, based on patient's current diagnoses, he would not qualify for cardiac rehab at this point as covered by insurance. Patient would need to have reduced cardiac ejection fraction to qualify for this.
Original Note:
Today's Communication/Plan
-
Continue IV diuresis
Monitor on telemetry
Assessment / Plan
Assessment / Plan
Physical Exam
General: Well Developed, No Apparent Distress and Morbidly Obese
HEENT: Normocephalic, Atraumatic and Moist Mucous Membranes
Respiratory: Rhonchi bilaterally
Cardiac: S1/S2, Irregular Rhythm and Tachycardic
GI: Soft, Nontender, Nondistended and Normal Bowel Sounds
Musculoskeletal: No Cyanosis and Other (1+ edema)
Skin: Warm, Dry and Normal Turgor
Neuro: AO x 3 and Nonfocal/Grossly Intact
Psych: Calm
Assessment/Plan
68-year-old male who was discharged on Saturday June 15, 2024 following hospitalization with hypotension, pleural effusion, SAMI. Blood pressure regimen was de-escalated and renal function stabilized. On June 15, 2024, he refused SNF at time of
discharge, had 2 mechanical falls when he returned home. Currently on short course of IV Lasix, cardiology reconsulted. Amenable to SNF placement now
#Acute hypoxemic respiratory insufficiency
#Acute on chronic HFpEF
-Recently discharged on oral Lasix for HFpEF; converted to IV on admission
-Not currently on GDMT for HFpEF though would likely benefit from SGLT2 inhibitor
-Mildly hypervolemic compared to baseline; warm and wet phenotype
-NOW ON ROOM AIR OXYGEN (PREVIOUSLY WAS ON 3 L OXYGEN)
-Continue IV Lasix at 40 mg BID; I/Os, BMP, weights
-SpO2 goal >90% for now, wean as appropriate
-Monitor on telemetry
-I communicated on 06/18/24 with skidder runner regarding cardiac rehab and skidder runner will ask cardiology physician assistants to arrange cardiac rehab after discharge
#Ambulatory dysfunction
-Patient recently discharged from hospital, went home and had 2 mechanical falls
-He is now amenable to SNF placement, PT evaluated on morning of 06/16
-Case management appreciated for placement
#Small pericardial effusion
-CT on arrival showed moderate pleural effusion, follow-up TTE showed small effusion
-No signs of tamponade physiology on echo, found to be stable over 2 echoes on recent hospitalization
-Denies recent viral prodrome, though cannot rule out viral etiology completely
-Plan to have repeat echocardiogram in 3 to 4 weeks as OP with cardiology
#Normocytic anemia
-Acute to subacute, hemoglobin and April was near 14, presented with hemoglobin 9.5-9.0
-Recent Iron studies consistent with anemia of chronic disease, high ferritin and low TIBC
-No obvious signs of bleeding at this time; will monitor for bloody stool and other sources
-With elevated D-dimer, no signs of thrombosis, cannot rule out recurrent malignancy
-Trend CBC for now
#AF with RVR
#AF s/p Watchman
-Home regimen includes carvedilol 25 mg twice daily; no longer on AC due to bleeding
-Status post Watchman device, remains on baby aspirin which is currently twice daily for DVT prophylaxis
-Upon arrival head heart rate between 100-120/min, remained hemodynamically stable after initial IVF
-Suspect RVR is associated with hypovolemic state; s/p IV fluids
-Consider transition from carvedilol to metoprolol versus rhythm control: but may need to consider decreasing Coreg if orthostatic vital signs are abnormal, and may need amiodarone for rapid heart rate of A-fib at times.
-Monitor on telemetry
#IDDM with continuous glucometer and insulin pump
#Malfunctioning insulin pump and glucometer
-A1c here 6.3%; currently well-controlled with glucometer and insulin regimen
-On recent hospital stay had malfunction of his insulin pump, transition to subcu
-Continue with transition to 60 units Lantus daily + ISS pending new pump
-Follows outpatient with endocrinology in [place], Dr. Gold
#Elevated D-dimer
#H/O colon cancer s/p robotic colectomy
-On most recent hospital stay had elevated D-dimer and leukocytosis; PE/DVT was ruled out
-Should have outpatient follow-up with oncology/PCP for further investigation
#S/p left total knee arthroplasty on 05/17/2024
#DVT prophylaxis with 81 mg aspirin twice daily
-Remains on twice daily baby aspirin
-Surgical scar appears well-approximated, no signs of infection
#Recent prerenal acute kidney injury
#Recent hospital stay with hypotension
-Recently discharged from hospital stay with prerenal SAMI and hypotension
-Blood pressure regimen was adjusted, continued on carvedilol; amlodipine, valsartan, hydralazine stopped
-Was also started on Lasix for HFpEF
-Renal function and BP normal upon this admission
#GLORIA on CPAP
-No evidence of pulmonary hypertension
-Wears CPAP 14 mmHg nightly
#H/O right sided colon cancer s/p colectomy
#Morbid obesity
DVT prophylaxis: Lovenox subq
Diet: Carbohydrate controlled
CODE STATUS: Full code
Disposition: SNF, patient amenable
Anticipated Discharge: 24 - 48 hours
Subjective/Interval History
-
Date of Service: June 18, 2024
Patient was seen and examined. He denied any chest pain, shortness of breath or any other complaints.
Objective Data
-
Labs:
Laboratory Results
06/18/24
06:48
WBC 7.8
Hgb 9.9 L
Hct 30.7 L
Plt Count 408 H
Sodium 142
Potassium 4.2
Chloride 103
Carbon Dioxide 31 H
BUN 26 H
Creatinine 0.8
Glucose 104 H
Calcium 9.1
Vital Signs:
Vital Signs
Temp Pulse Resp BP Pulse Ox
98.2 F 108 18 117/69 93
06/18/24 11:00 06/18/24 11:00 06/18/24 11:00 06/18/24 11:00 06/18/24 11:00
I&O
06/17/24 06/18/24 06/19/24
06:59 06:59 06:59
Intake Total 1200 / 1200 1140 / 1140
Output Total 1200 / 1200 400 / 400 700 / 700
Balance 0 / 0 740 / 740 -700 / -700
--- NOTE | 2024-06-18 16:19 | CM ---
Patient with Dx HF, pericardial effusion, Ambulatory dysfunction/mechanical falls. Room air. Receiving IV Lasix. PT/OT recommend skilled rehab.
Spoke with patient and reviewed accepting SNFs as per [facility] referrals; [facility], [facility] near to [facility] home, and has not responded to the referral. Second choice [facility], that has accepted.
Phone call to Rafita Anderson Director; [facility]; left message requesting response to referral.
Plan follow up with [facility] for acceptance.
[2024-06-18 16:35] LABS: Glucose - Point of Care 146 mg/dl (70-99)
[2024-06-18 21:49] LABS: Glucose - Point of Care 288 mg/dl (70-99)
[2024-06-19] VITALS (8 sets, daily range): BP systolic 115–151; BP diastolic 66–87; PULSE 95–117; O2SAT 95–96; BMI 41.8
[2024-06-19 00:59] LABS: Glucose - Point of Care 274 mg/dl (70-99)
[2024-06-19] MEDS: SYNTHROID 137 MCG PO (05:35)
[2024-06-19] MEDS: LOVENOX SC ×2 (05:44→17:22)
[2024-06-19] MEDS: NEURONTIN 300 MG PO ×2 (07:26→19:10)
[2024-06-19] MEDS: PROTONIX 40 MG PO (07:26)
[2024-06-19] MEDS: LEXAPRO 10 MG PO (07:26)
[2024-06-19] MEDS: LOW STRENGTH ASPIRIN 81 MG PO ×2 (07:26→19:11)
[2024-06-19] MEDS: LIPITOR 40 MG PO (07:26)
[2024-06-19] MEDS: ZADITOR 1 DROP BOTH EYES ×2 (07:26→19:26)
[2024-06-19] MEDS: VITAMIN D3 (cholecalciferol) 25 MCG PO (07:26)
[2024-06-19 07:35] LABS: Glucose - Point of Care 293 mg/dl (70-99)
[2024-06-19] MEDS: LANTUS 0.6 UNITS SC (07:35)
[2024-06-19] MEDS: NOVOLOG FLEXPEN-MODERATE RESISTANCE 5 UNITS SC (07:35)
[2024-06-19] MEDS: LASIX 40 MG IV (07:38)
[2024-06-19] MEDS: COREG 25 MG PO ×2 (07:38→19:11)
[2024-06-19 08:03] LABS: Hematocrit 29.8 % (39.0-52.0); Hemoglobin 9.9 g/dL (13.0-18.0); Mean Corp Hgb Conc. 33.2 g/dL (33.0-37.0); Mean Corpuscular Hgb 28.8 pg (27.0-31.0); Mean Corpuscular Volume 86.6 fL (80.0-94.0); Mean Platelet Volume 9.7 fL (7.4-10.4); Platelet Count 386 10^3/uL (130-400); Red Blood Cell Count 3.44 10^6/uL (4.70-6.10); Red Cell Dist. Width 15.5 % (11.5-14.5); White Blood Cell Count 7.6 10^3/uL (4.8-10.8)
--- NOTE | 2024-06-19 08:22 | W.PN.HOSP.TC ---
Today's Communication/Plan
-
SNF placement pending. Lasix changed to oral.
Assessment / Plan
Assessment / Plan
Physical Exam
General: Well Developed, No Apparent Distress and Morbidly Obese
HEENT: Normocephalic, Atraumatic and Moist Mucous Membranes
Respiratory: Rhonchi bilaterally
Cardiac: S1/S2, Irregular Rhythm and Tachycardic
GI: Soft, Nontender, Nondistended and Normal Bowel Sounds
Musculoskeletal: No Cyanosis and Other (1+ edema)
Skin: Warm, Dry and Normal Turgor
Neuro: AO x 3 and Nonfocal/Grossly Intact
Psych: Calm
Assessment/Plan
68-year-old male who was discharged on Saturday June 15, 2024 following hospitalization with hypotension, pleural effusion, SAMI. Blood pressure regimen was de-escalated and renal function stabilized. On June 15, 2024, he refused SNF at time of
discharge, had 2 mechanical falls when he returned home. Currently on short course of IV Lasix, cardiology reconsulted. Amenable to SNF placement now
#Acute hypoxemic respiratory insufficiency
#Acute on chronic HFpEF
-Recently discharged on oral Lasix for HFpEF; converted to IV now doing better -- converted Lasix to 40 mg PO BID as discussed with litigation claim representative on 06/19/24
-Not currently on GDMT for HFpEF though would likely benefit from SGLT2 inhibitor
-Mildly hypervolemic compared to baseline; warm and wet phenotype
-REMAINS ON ROOM AIR OXYGEN (PREVIOUSLY WAS ON 3 L OXYGEN)
-I/Os, BMP, weights
-Monitor on telemetry
-I communicated on 06/18/24 with litigation claim representative regarding cardiac rehab and I was informed that patient does not qualify for cardiac rehab
#Hypomagnesemia
-Replaced
-Continue to monitor
#Ambulatory dysfunction
-Patient recently discharged from hospital, went home and had 2 mechanical falls
-He is now amenable to SNF placement, PT evaluated on morning of 06/16
-Case management appreciated for placement
#Small pericardial effusion
-CT on arrival showed moderate pleural effusion, follow-up TTE showed small effusion
-No signs of tamponade physiology on echo, found to be stable over 2 echoes on recent hospitalization
-Denies recent viral prodrome, though cannot rule out viral etiology completely
-Plan to have repeat echocardiogram in 3 to 4 weeks as OP with cardiology -- echo will need to be around 06/26/24
#Normocytic anemia
-Acute to subacute, hemoglobin and April was near 14, presented with hemoglobin 9.5-9.0
-Recent Iron studies consistent with anemia of chronic disease, high ferritin and low TIBC
-No obvious signs of bleeding at this time; will monitor for bloody stool and other sources
-With elevated D-dimer, no signs of thrombosis, cannot rule out recurrent malignancy
-Trend CBC for now
#AF with RVR
#AF s/p Watchman
-Home regimen includes carvedilol 25 mg twice daily; no longer on AC due to bleeding
-Status post Watchman device, remains on baby aspirin which is currently twice daily for DVT prophylaxis
-Upon arrival head heart rate between 100-120/min, remained hemodynamically stable after initial IVF
-Suspect RVR is associated with hypovolemic state; s/p IV fluids
-Consider transition from carvedilol to metoprolol versus rhythm control: but may need to consider decreasing Coreg if orthostatic vital signs are abnormal, and may need amiodarone for rapid heart rate of A-fib at times.
-Cannot do calcium channel arron (due to hypotension -- see below)
-Monitor on telemetry
#Hypertension
-Patient was previously taking valsartan 300 mg daily prior to his last admission 06/12/2024 until 06/15/2024, but this was stopped due to hypotension. Overall BP improved and stable this admission, restart a lower dose of valsartan on
-Patient was also previously on hydralazine 50 mg BID and amlodipine 5 mg daily, but these awere also stopped following hypotension last admission
#IDDM with continuous glucometer and insulin pump
#Malfunctioning insulin pump and glucometer
-A1c here 6.3%; currently well-controlled with glucometer and insulin regimen
-On recent hospital stay had malfunction of his insulin pump, transition to subcu
-Continue with transition to 60 units Lantus daily + ISS pending new pump
-Follows outpatient with endocrinology in [place], Dr. Gold
-Appreciate Diabetes [employer]
#Elevated D-dimer
#H/O colon cancer s/p robotic colectomy
-On most recent hospital stay had elevated D-dimer and leukocytosis; PE/DVT was ruled out
-Should have outpatient follow-up with oncology/PCP for further investigation
#S/p left total knee arthroplasty on 05/17/2024
#DVT prophylaxis with 81 mg aspirin twice daily
-Remains on twice daily baby aspirin
-Surgical scar appears well-approximated, no signs of infection
#Recent prerenal acute kidney injury
#Recent hospital stay with hypotension
-Recently discharged from hospital stay with prerenal SAMI and hypotension
-Blood pressure regimen was adjusted, continued on carvedilol; amlodipine, valsartan, hydralazine stopped
-Was also started on Lasix for HFpEF
-Renal function and BP normal upon this admission
#GLORIA on CPAP
-No evidence of pulmonary hypertension
-Wears CPAP 14 mmHg nightly
#H/O right sided colon cancer s/p colectomy
#Morbid obesity
DVT prophylaxis: Lovenox subq
Diet: Carbohydrate controlled
CODE STATUS: Full code
Disposition: SNF, patient amenable
Anticipated Discharge: > 48 hours
Subjective/Interval History
-
Date of Service: June 19, 2024
Patient was seen and examined. He reported feeling well, and denied any chest pain or shortness of breath.
Objective Data
-
Labs:
Laboratory Results
06/19/24
07:28
WBC 7.6
Hgb 9.9 L
Hct 29.8 L
Plt Count 386
Sodium Pending
Potassium Pending
Chloride Pending
Carbon Dioxide Pending
BUN Pending
Creatinine Pending
Glucose Pending
Calcium Pending
Vital Signs:
Vital Signs
Temp Pulse Resp BP Pulse Ox
97.9 F 106 20 127/84 96
06/19/24 03:44 06/19/24 07:38 06/19/24 03:44 06/19/24 07:38 06/19/24 03:44
I&O
06/18/24 06/19/24 06/20/24
06:59 06:59 06:59
Intake Total 1140 / 1140 840 / 840
Output Total 400 / 400 1880 / 1880
Balance 740 / 740 -1040 / -1040
[2024-06-19] MEDS: XANAX 0.5 MG PO ×3 (08:37→19:22)
[2024-06-19 09:03] LABS: Blood Urea Nitrogen 26 mg/dl (9-20); Carbon Dioxide 29 mmol/L (22-30); Chloride 102 mmol/L (98-107); Estimated Creatinine Clearance 117 ml/min; Glucose 291 mg/dl (70-99); Magnesium 1.5 mg/dl (1.6-2.3); Potassium 4.3 mmol/L (3.5-5.1); Sodium 139 mmol/L (135-145); eGFR > 60.00
[2024-06-19 11:50] LABS: Glucose - Point of Care 307 mg/dl (70-99)
[2024-06-19] MEDS: NOVOLOG FLEXPEN-MODERATE RESISTANCE 7 UNITS SC (11:50)
[2024-06-19] MEDS: MAGNESIUM SULFATE 50 IV (13:08)
--- NOTE | 2024-06-19 13:20 | W.PN.CARDCBS ---
Addendum entered and electronically signed by Red Weber MD 06/20/24 11:15:
I saw and examined the patient on rounds 06/19/24.
The Bottle Blower's note was reviewed and I agree with the note.
Comment: Briefly, 68-year-old man with past medical history of atrial fibrillation status post watchman, heart failure with preserved ejection fraction and moderate pericardial effusion who was readmitted with decompensated heart failure.
Nearly euvolemic on exam
Agree with switching to oral Lasix and continuing 40 mg twice daily on discharge
In regards to his atrial fibrillation, continue carvedilol for rate control
Not chronically anticoagulated due to Watchman; would continue aspirin 81 mg daily
Pericardial effusion was stable on repeat echo 06/14/2024 without evidence of tamponade
Plan for repeat echo in the next several weeks to reassess
We will sign off, please recall as needed
Outpatient follow-up has been arranged
Discussed with hospitalist on 06/19/2024 via [place] text
Original Note:
Today's Communication / Plan
-
Consider adding amiodarone for adjunct rate control
Impression / Plan
-
PCP: Herb Gold
Primary Ems Manager: Dr. Urairte
Impression:
Admitted with falls and acute HF 06/16/24
Recent admission for pericardial effusion 06/12/24 until 06/15/24
Acute HFpEF
Pericardial effusion
Moderate-sized pericardial effusion without evidence of hemodynamic compromise by echo 06/12/2024
small to moderate size pericardial effusion without evidence of hemodynamic compromise by echo 06/14/24
Hypotension
Permanent Afib
Not chronically anticoagulated due to watchman in place
s/p Watchman YANICK occlusion ([place])for h/o recurrent GIB 06/2021
with post 6 month and 12 month TOREY without leak and is now on aspirin
Anemia
GLORIA, on CPAP
DM
HTN
Hypothyroidism
Colon cancer s/p colectomy at 2023
s/p LTKA 05/17/24 at .
Echo 06/12/24: EF 65 to 70%, normal RV size and function, mild TR with PAP 50 mmHg, moderate pericardial effusion without evidence of hemodynamic compromise, mildly dilated aortic root sinus of Valsalva is 3.9 cm, no prior echo for comparison
Echo limited 06/14/2024: EF preserved, small to moderate circumferential pericardial effusion without evidence of hemodynamic compromise and stable compared to echo 06/12/2024
Plan:
-Weight down maybe 2 lbs since admission, although being weighed using bed scale so might not be accurate.
-Patient symptomatically improved with Lasix 40 mg IV BID diuresis. Patient transitioned to Lasix 40 mg PO BID starting 06/19/24 AM. Patient was taking Lasix 40 mg daily prior to admission
-EF preserved by echo on 06/12/2024 and then stable again on repeat echo 06/14/2024
-Outpatient dose of Coreg 25 mg BID has been continued
-Patient was previously taking valsartan 300 mg daily prior to his last admission 06/12/2024 until 06/15/2024, but this was stopped due to hypotension. Overall BP improved and stable this admission, will restart a lower dose of valsartan/12/05
-Patient was also previously on hydralazine 50 mg BID and amlodipine 5 mg daily, but these also remain on hold following hypotension last admission
-During patient's last admission he was also found to have a small to moderate-sized pericardial effusion without evidence of hemodynamic compromise. Patient will need a repeat echo at the 3 to 4-week unruly, approximately the week of 06/26/2024, will
make echo appt for patient as he is going to rehab at d/c.
-Patient with known permanent A-fib. HRs generally above 100. Outpatient dose of Coreg 25 mg BID has been continued. BP is borderline and would not add CCB. Could add amiodarone for adjunct rate control.
-Patient is not chronically on OAC due to previous Watchman device
HPI 06/12/2024: He was recently transferred his care from [facility].
He has h/o persistent (permanent?) AF. Watchman 06/2021 with post 6 month and 12 month TOREY without leak and is now on aspirin ([facility]) . He had GI bleeding. TOREY 2022 with normal EF% and no significant valvular disease.�
Medical records also indicate h/o GLORIA (on CPAP), HTN, DM, hypothyroidism, colon cancer s/p colectomy and most recently s/p LTKA 05/17/24 at .
He presented to the ED after multiple falls over the last 2 days, denies head injury or loss of consciousness.
He and his son describe that twice yesterday he fell after sitting on toilet for a prolonged period of time, his legs became numb, wehen he stodd he fell over - no LOC
Today he had a mechanical fall while walking - no LOC
Upon arrival to ED he was mildly tachycardic, tachypneic and hypotensive. Afebrile. Hypotensive with quick response to IVFs fluids.
Initial labs with WBC 12.6, hemoglobin 9.5, creatinine 2.0, BUN 57, albumin 2.7, D-dimer 4.75. Chest x-ray showed small bilateral pleural effusions. Lower extremity venous ultrasound without signs of DVTs. CTA thorax PE study did not show any
evidence of pulmonary emboli, showed a moderate pericardial effusion and small bilateral pleural effusions. ECG showed AF with RVR, low voltage QRS.
Cardiology is consulted regarding CT finding of pericardial effusion.
Progress Note - Ems Manager
Subjective
Date of Service: June 19, 2024
No palpitations
Objective
Labs:
06/19/24 07:28
06/19/24 07:28
Labs
Hgb 9.9 g/dL (13.0-18.0) L 06/19/24 07:28
Hct 29.8 % (39.0-52.0) L 06/19/24 07:28
Plt Count 386 10^3/uL (130-400) 06/19/24 07:28
PT 16.2 Sec (11.4-14.6) H 06/16/24 01:05
INR 1.27 06/16/24 01:05
APTT 40.6 Sec (23.4-35.0) H 06/16/24 01:05
Sodium 139 mmol/L (135-145) 06/19/24 07:28
Potassium 4.3 mmol/L (3.5-5.1) 06/19/24 07:28
BUN 26 mg/dl (9-20) H 06/19/24 07:28
Creatinine 0.8 mg/dL (0.7-1.3) 06/19/24 07:28
Glucose 291 mg/dl (70-99) H 06/19/24 07:28
Vital Signs and I&O:
Vital Signs
Temp Pulse Resp BP Pulse Ox
97.6 F 83 20 151/66 93
06/19/24 11:00 06/19/24 11:00 06/19/24 11:00 06/19/24 11:00 06/19/24 11:00
Vital Signs
Temp Pulse Resp BP Pulse Ox
97.6 F 83 20 151/66 93
06/19/24 11:00 06/19/24 11:00 06/19/24 11:00 06/19/24 11:00 06/19/24 11:00
Intake & Output
06/17/24 06/18/24 06/19/24 06/20/24
06:59 06:59 06:59 06:59
Intake Total 1200 / 1200 1140 / 1140 840 / 840
Output Total 1200 / 1200 400 / 400 1880 / 1880 550 / 550
Balance 0 / 0 740 / 740 -1040 / -1040 -550 / -550
Physical Exam
Physical Exam
GEN: NAD
HEENT: MMM
LUNGS: RA.
CV: Afib on tele
--- NOTE | 2024-06-19 13:51 | PN.DE.MGMTRT ---
Insulin Management
- -
06/19/2024: Diabetes Management Insulin pump
68 year old male with PMH: Colon ca s/p colectomy, hypothyroid, GERD, HTN, HLD, A-Fib post watchman, Anxiety.
Pt was recently hospitalized 06/12-06/15 for SAMI, Pericardial Effusion and hypotension. Pt refused SNF at time of discharge, went home and had 2 mechanical falls. He is now amenable to SNF placement.
Patient is awake alert and oriented sitting oob in chair. Able to discuss diabetes care. Patient has seen endocrine for 53 years in [place].
Prior to admission patient using OmniPod with DexCom G7 insulin pump with Humalog insulin. A1C 6.3%.
Patient states that he was instructed to remove his insulin pump upon arrival to the ED because his PDM battery had run out and that he would be managed using SQ insulin injections.
His glucose has been stable and in range since admission until last night when his glucose trended up to 288 @ bedtime.
Pt was taking 66 units of 24H total basal dose with meal time bolus insulin while using insulin pump. Of note His diabetes regimen includes Lantus 60 units in AM and corrective insulin with meals.
FBG was 291 V, 293 POC this AM. Pt is very concerned that he will be denied SNF placement due to persistent Hyperglycemia
Diabetes plan of care discussed with pt at length.
Pt is agreeable to start AC dose and increase Lantus to 66 units with moderate corrective insulin since insulin delivery devices are generally not used in rehab facilities.
Pt will resume use of his insulin pump upon discharge from rehab.
Discussed with nurse. Will follow
Diabetes History
- -
Type of Diabetes: 1
Pre-Admission Diabetes Regimen
06/19/24
07:28
Creatinine 0.8
Insulin Pump Settings
IP Diabetes Regimen
06/18/24 06/18/24 06/19/24
16:33 21:49 00:57
Glucose
POC Glucose 146 H 288 H 274 H
06/19/24 06/19/2406/19/25
07:28 07:33 11:48
Glucose 291 H
POC Glucose 293 H 307 H
Meal type: Dinner
Amount consumed: 100%
Patient Education
--- NOTE | 2024-06-19 14:07 | CM ---
Addendum entered by Prasanna Mchugh 06/19/24 14:26:
[facility] SN[facility] and [facility] denied a referral.
Awaiting for [facility].
Pt is aware that [facility] offered a bed and he asked to wait for [facility] to respond.
Original Note:
CM following re: discharge planning.
Reviewed pt's chart, met with pt a few times today to coordinate discharge plan.
According to MD pt is medically stable to be discharged. Pt is aware, expressed his agreement. IMM reviewed, placed on chart, pt has a copy.
A referral to [facility] and [facility] SNF noted. CM spoke to [facility]'s home [facility] clinical research director and she confirmed they will not have a bed available till somehow next week. [facility] SNF denied a referral due to pt uses
insulin pump.
Pt is aware, expressed his disappointed feelings. A list of SNFs provided. Pt preferred: [facility], [facility], [facility]. A referral to above SNFs made. Awaiting for determination.
D/C plan: preferred SNF.
CM will follow vidhi assist pt with discharge to a preferred SNF.
[2024-06-19 16:22] LABS: Glucose - Point of Care 247 mg/dl (70-99)
[2024-06-19] MEDS: LASIX 40 MG PO (17:20)
[2024-06-19] MEDS: NOVOLOG FLEXPEN 6 UNITS SC (17:21)
[2024-06-19] MEDS: NOVOLOG FLEXPEN-MODERATE RESISTANCE 3 UNITS SC (17:22)
[2024-06-19 22:41] LABS: Glucose - Point of Care 158 mg/dl (70-99)
[2024-06-20 03:20] VITALS: BP 96/77
[2024-06-20 05:30] VITALS: BMI 41.8
[2024-06-20] MEDS: SYNTHROID 137 MCG PO (05:33)
[2024-06-20] MEDS: LOVENOX SC (05:33)
[2024-06-20 07:20] LABS: Glucose - Point of Care 126 mg/dl (70-99)
[2024-06-20 07:37] VITALS: BP 122/73
[2024-06-20] MEDS: NOVOLOG FLEXPEN-MODERATE RESISTANCE SC (07:38)
[2024-06-20] MEDS: VITAMIN D3 (cholecalciferol) 25 MCG PO (07:39)
[2024-06-20] MEDS: LOW STRENGTH ASPIRIN 81 MG PO (07:39)
[2024-06-20] MEDS: LASIX 40 MG PO (07:39)
[2024-06-20] MEDS: LEXAPRO 10 MG PO (07:39)
[2024-06-20] MEDS: LIPITOR 40 MG PO (07:39)
[2024-06-20] MEDS: NEURONTIN 300 MG PO (07:39)
[2024-06-20] MEDS: PROTONIX 40 MG PO (07:39)
[2024-06-20 07:40] LABS: Hemoglobin 10.3 g/dL (13.0-18.0); Mean Corp Hgb Conc. 32.2 g/dL (33.0-37.0); Mean Platelet Volume 9.5 fL (7.4-10.4); Platelet Count 399 10^3/uL (130-400); Red Blood Cell Count 3.68 10^6/uL (4.70-6.10); Red Cell Dist. Width 15.3 % (11.5-14.5); White Blood Cell Count 7.1 10^3/uL (4.8-10.8)
[2024-06-20] MEDS: XANAX 0.5 MG PO (07:40)
[2024-06-20] MEDS: COREG 25 MG PO (07:40)
[2024-06-20] MEDS: NOVOLOG FLEXPEN 6 UNITS SC ×2 (07:42→12:27)
[2024-06-20] MEDS: ZADITOR 1 DROP BOTH EYES (07:42)
[2024-06-20] MEDS: LANTUS 0.66 UNITS SC (08:17)
[2024-06-20 08:27] LABS: Blood Urea Nitrogen 20 mg/dl (9-20); Carbon Dioxide 33 mmol/L (22-30); Chloride 100 mmol/L (98-107); Estimated Creatinine Clearance 117 ml/min; Glucose 127 mg/dl (70-99); Magnesium 1.8 mg/dl (1.6-2.3); Sodium 141 mmol/L (135-145); eGFR > 60.00
--- NOTE | 2024-06-20 09:06 | PN.DE.MGMTRT ---
Insulin Management
- -
06/20/2024: Diabetes Management follow up
68 year old male with PMH: Colon ca s/p colectomy, hypothyroid, GERD, HTN, HLD, A-Fib post watchman, Anxiety.
Pt was recently hospitalized 06/12-06/15 for SAMI, Pericardial Effusion and hypotension. Pt refused SNF at time of discharge, went home and had 2 mechanical falls. He is now amenable to SNF placement. Patient has seen endocrine for 53 years in [place].
Prior to admission patient using OmniPod with DexCom G7 insulin pump with Humalog insulin. A1C 6.3%.
Patient states that he was instructed to remove his insulin pump upon arrival to the ED because his PDM battery had run out and that he would be managed using SQ insulin injections.
His glucose has been stable and in range since admission until last night when his glucose trended up to 288 @ bedtime.
Pt was taking 66 units of 24H total basal dose with meal time bolus insulin while using insulin pump. Of note His diabetes regimen includes Lantus 60 units in AM and corrective insulin with meals. Pt is very concerned that he will be denied SNF
placement due to persistent Hyperglycemia
Patient is awake alert and oriented sitting oob in chair. Able to discuss diabetes care.
Glucose improved with addition of AC NovoLog. HS glucose was 158, FBG 127 V, 126 POC this AM.
Will make no changes to current regimen: Lantus to 66 units, AC NovoLog 6 units and moderate corrective insulin.
Pt will resume use of his insulin pump upon discharge from rehab.
Discussed with nurse. Will cont to follow
Diabetes History
- -
Type of Diabetes: 1
Pre-Admission Diabetes Regimen
06/20/24
06:53
Creatinine 0.8
Insulin Pump Settings
IP Diabetes Regimen
06/19/24 06/19/24 06/19/24
11:48 16:19 22:40
Glucose
POC Glucose 307 H 247 H 158 H
06/20/24 06/20/24
06:53 07:19
Glucose 127 H
POC Glucose 126 H
Patient Education
[2024-06-20 11:00] VITALS: BP 114/67
--- NOTE | 2024-06-20 11:35 | W.PN.HOSP.TC ---
Today's Communication/Plan
-
Discharge today
Assessment / Plan
Assessment / Plan
Physical Exam
General: Well Developed, No Apparent Distress and Morbidly Obese
HEENT: Normocephalic, Atraumatic and Moist Mucous Membranes
Respiratory: Clear to Auscultation Bilaterally
Cardiac: S1/S2, Irregular Rhythm and Regular Rate
GI: Soft, Nontender, Nondistended and Normal Bowel Sounds
Musculoskeletal: No Cyanosis and Other (1+ edema)
Skin: Warm, Dry and Normal Turgor
Neuro: AO x 3 and Nonfocal/Grossly Intact
Psych: Calm
Assessment/Plan
68-year-old male who was discharged on Saturday June 15, 2024 following hospitalization with hypotension, pleural effusion, SAMI. Blood pressure regimen was de-escalated and renal function stabilized. On June 15, 2024, he refused SNF at time of
discharge, had 2 mechanical falls when he returned home. Currently on short course of IV Lasix, cardiology reconsulted. Amenable to SNF placement now
#Acute hypoxemic respiratory insufficiency
#Acute on chronic HFpEF
-Recently discharged on oral Lasix for HFpEF; converted to IV now doing better -- converted Lasix to 40 mg PO BID as discussed with packing shed supervisor on 06/19/24
-Not currently on GDMT for HFpEF though would likely benefit from SGLT2 inhibitor
-Mildly hypervolemic compared to baseline; warm and wet phenotype
-REMAINS ON ROOM AIR OXYGEN (PREVIOUSLY WAS ON 3 L OXYGEN)
-I/Os, BMP, weights
-Monitor on telemetry
-I communicated on 06/18/24 with packing shed supervisor regarding cardiac rehab and I was informed that patient does not qualify for cardiac rehab
#Hypomagnesemia
-Replaced
-Continue to monitor
-Recheck Magnesium outpatient
#Ambulatory dysfunction
-Patient recently discharged from hospital, went home and had 2 mechanical falls
-He is now amenable to SNF placement, will be discharged to SNF
-Case management appreciated for placement
#Small pericardial effusion
-CT on arrival showed moderate pleural effusion, follow-up TTE showed small effusion
-No signs of tamponade physiology on echo, found to be stable over 2 echoes on recent hospitalization
-Denies recent viral prodrome, though cannot rule out viral etiology completely
-Plan to have repeat echocardiogram in 3 to 4 weeks as OP with cardiology -- echo will need to be around 06/26/24
#Normocytic anemia
-Hgb here in the hospital has been stable/improved
-Acute to subacute, hemoglobin and April was near 14, presented with hemoglobin 9.5-9.0
-Recent Iron studies consistent with anemia of chronic disease, high ferritin and low TIBC
-No obvious signs of bleeding at this time; will monitor for bloody stool and other sources
-With elevated D-dimer, no signs of thrombosis, cannot rule out recurrent malignancy
-Recheck CBC outpatient
-Recheck iron studies outpatient
#Atrial Fibrillation with RVR
#Atrial Fibrillation status post Watchman Device
-Home regimen includes carvedilol 25 mg twice daily; no longer on AC due to bleeding
-Status post Watchman device, remains on baby aspirin which is currently twice daily for DVT prophylaxis (see below)
-Upon arrival head heart rate between 100-120/min, remained hemodynamically stable after initial IVF
-Suspect RVR is associated with hypovolemic state; s/p IV fluids
-Continue Carvedilol 25 mg PO BID
-Consider transition from carvedilol to metoprolol versus rhythm control: but may need to consider decreasing Coreg if orthostatic vital signs are abnormal, and may need amiodarone for rapid heart rate of A-fib at times.
-Cannot do calcium channel arrno (due to hypotension -- see below)
-Monitor on telemetry
#Hypertension
-Patient was previously taking valsartan 300 mg daily prior to his last admission 06/12/2024 until 06/15/2024, but this was stopped due to hypotension. Overall BP improved and stable this admission, restart a lower dose of valsartan on 06/19/24
-Patient was also previously on hydralazine 50 mg BID and amlodipine 5 mg daily, but these were also stopped following hypotension last admission
#IDDM with continuous glucometer and insulin pump
#Malfunctioning insulin pump and glucometer
-A1c here 6.3%; currently well-controlled with glucometer and insulin regimen
-On recent hospital stay had malfunction of his insulin pump, transition to subcu
-Continue with transition to 60 units Lantus daily + ISS pending new pump
-Follows outpatient with endocrinology in [place], Dr. Gold
-Appreciate Diabetes TRANSPORTATION PROJECT MANAGER: on discharge, Lantus 66 units, AC NovoLog 6 units. Patient will resume Insulin pump after discharge from rehab facility.
#Hyperlipidemia
-Continue Atorvastatin
#Elevated D-dimer
#H/O colon cancer s/p robotic colectomy
-On most recent hospital stay had elevated D-dimer and leukocytosis; PE/DVT was ruled out
-Should have outpatient follow-up with oncology/PCP for further investigation
#S/p left total knee arthroplasty on 05/17/2024
#DVT prophylaxis with 81 mg aspirin twice daily
-Remains on twice daily baby Aspirin -- will need to check with outpatient orthopedics when to change to Aspirin 81 mg daily (orthopedic surgeon Dr. Booth and KAT Beavers)
-Surgical scar appears well-approximated, no signs of infection
#Recent prerenal acute kidney injury
#Recent hospital stay with hypotension
-Recently discharged from hospital stay with prerenal SAMI and hypotension
-Blood pressure regimen was adjusted, continued on carvedilol; recently amlodipine, valsartan, hydralazine were stopped
-Was also started on Lasix for HFpEF
-Renal function and BP normal upon this admission
#GLORIA on CPAP
-No evidence of pulmonary hypertension
-Wears CPAP 14 mmHg nightly
#Pancreatic Mass
-Needs outpatient follow-up
#History of right sided colon cancer status post colectomy
#Hypothyroidism
#GERD
#Morbid obesity
#Anxiety
-Patient says he wants Xanax 0.5 mg BID scheduled on discharge (takes 1 mg BID Xanax at home)
DVT prophylaxis: Lovenox subq
Diet: Carbohydrate controlled
CODE STATUS: Full code
Disposition: SNF, patient amenable
More than 30 minutes spent in discharge including
Final examination of the patient
Summarizing hospital stay
Instructions for continuing care to all relevant caregivers
Preparation of discharge records, prescriptions, and referral forms
Total time spent (in minutes): 37
Anticipated Discharge: Today
Subjective/Interval History
-
Date of Service: June 20, 2024
Patient was seen and examined. He denied any chest pain, shortness of breath or any other symptoms or complaints.
Objective Data
-
Labs:
Laboratory Results
06/20/24
06:53
WBC 7.1
Hgb 10.3 L
Hct 32.0 L
Plt Count 399
Sodium 141
Potassium 4.0
Chloride 100
Carbon Dioxide 33 H
BUN 20
Creatinine 0.8
Glucose 127 H
Calcium 9.0
Vital Signs:
Vital Signs
Temp Pulse Resp BP Pulse Ox
98.7 F 96 18 122/73 94
06/20/24 07:00 06/20/24 07:37 06/20/24 07:37 06/20/24 07:37 06/20/24 08:00
I&O
06/19/24 06/20/24 06/21/24
06:59 06:59 06:59
Intake Total 840 / 840 1535 / 1535
Output Total 1880 / 1880 550 / 550
Balance -1040 / -1040 985 / 985
[2024-06-20 11:36] LABS: Glucose - Point of Care 160 mg/dl (70-99)
[2024-06-20] MEDS: NOVOLOG FLEXPEN-MODERATE RESISTANCE 1 UNITS SC (12:27)
--- NOTE | 2024-06-20 12:42 | CM ---
CM following re: discharge planning.
Reviewed pt's chart, met with pt.
Pt is aware he will be discharged today and he expressed his agreement with discharge. IMM reviewed, placed on chart, pt has a copy.
Pt is aware that [facility] denied a referral today again even pt will not use insulin pump.
Pt is aware that [facility] accepted the pt for admission today and pt expressed his agreement. pt expressed his great appreciation with discharge plan outcomes and pt is aware that [facility] has a private room for him.
Pt is aware he will not qualify for ambulance stretcher transport, agreed with w/c van and agrees with $95.00 fees.
arranged w/c van with miner pick time 4:00 p.m.
Please fax discharge instructions to [facility] at [phone]
Please fax discharge instructions to [phone]
D/C plan: [facility] today.
[2024-06-20 16:15] VITALS: BP 146/77
== END 2024-06-20 17:35 | DRG 291 ==
LOC: 4 WEST ACU 04:40
PROVIDERS: Internal Medicine; ADMITTING PHYSICIAN Hospitalist; ATTENDING PHYSICIAN Hospitalist; EMERGENCY PHYSICIAN Student in an Organized Health Care Education/Training Program; FAMILY PHYSICIAN Internal Medicine Endocrinology, Diabetes & Metabolism
PROC: 5A09357 Assistance with Respiratory Ventilation, Less than 24 Consecutive Hours, Continuous Positive Airway Pressure (ICD-10-PCS; 2024-06-16)
DX: I11.0 Hypertensive heart disease with heart failure (principal); I50.33 Acute on chronic diastolic (congestive) heart failure; Z68.41 Body mass index [BMI] 40.0-44.9, adult; I48.21 Permanent atrial fibrillation; I31.39 Other pericardial effusion (noninflammatory); E83.42 Hypomagnesemia; I25.10 Atherosclerotic heart disease of native coronary artery without angina pectoris; E11.9 Type 2 diabetes mellitus without complications; Z96.652 Presence of left artificial knee joint; W19.XXXA Unspecified fall, initial encounter; K21.9 Gastro-esophageal reflux disease without esophagitis; F32.A Depression, unspecified; F41.9 Anxiety disorder, unspecified; E66.01 Morbid (severe) obesity due to excess calories; G47.33 Obstructive sleep apnea (adult) (pediatric); Z79.4 Long term (current) use of insulin; Z85.038 Personal history of other malignant neoplasm of large intestine; Z95.818 Presence of other cardiac implants and grafts; Z80.0 Family history of malignant neoplasm of digestive organs; Z80.51 Family history of malignant neoplasm of kidney; Z79.82 Long term (current) use of aspirin; Z11.52 Encounter for screening for COVID-19
CPT/HCPCS: 71045; 80048; 80053; 82962; 83735; 83880; 84484; 85025; 85027; 85610; 85730; 87811; 93005; 94660; 96374; 97116; 97530; 97535; 99291

== ENCOUNTER → 2024-06-24 12:51 | Outpatient (REF) | payer OTHER, MEDICARE, SELFPAY ==
[2024-06-24 13:12] LABS: % Basophils 0.5 % (0-2); % Eosinophils 1.8 % (0-6); % Immature Granulocytes 0.6 % (0-0.5); % Lymphocytes 19.9 % (20.5-51.1); % Monocytes 14.7 % (1.7-9.3); % Neutrophils 62.5 % (42.2-75.2); Absolute Eosinophils 0.1 10^3/uL (0-0.7); Absolute Lymphocytes 1.2 10^3/uL (1.2-3.4); Absolute Monocytes 0.9 10^3/uL (0.1-0.6); Absolute Neutrophils 3.9 10^3/uL (1.4-6.5); Hematocrit 32.4 % (39.0-52.0); Hemoglobin 10.3 g/dL (13.0-18.0); Mean Corp Hgb Conc. 31.8 g/dL (33.0-37.0); Mean Corpuscular Hgb 28.1 pg (27.0-31.0); Mean Corpuscular Volume 88.5 fL (80.0-94.0); Nucleated Red Blood Cells % 0 % (-); Platelet Count 326 10^3/uL (130-400); Red Blood Cell Count 3.66 10^6/uL (4.70-6.10); White Blood Cell Count 6.2 10^3/uL (4.8-10.8)
[2024-06-24 15:01] LABS: ALT (SGPT) 18 U/L (0-50); AST (SGOT) 20 U/L (17-59); Albumin 2.9 g/dl (3.5-5.0); Alkaline Phosphatase 118 U/L (38-126); Blood Urea Nitrogen 16 mg/dl (9-20); Calcium 8.5 mg/dl (8.4-10.2); Carbon Dioxide 29 mmol/L (22-30); Chloride 98 mmol/L (98-107); Glucose 108 mg/dl (70-99); Magnesium 1.8 mg/dl (1.6-2.3); Potassium 3.9 mmol/L (3.5-5.1); Sodium 140 mmol/L (135-145); Total Bilirubin 0.8 mg/dl (0.2-1.3); Total Protein 6.1 g/dl (6.3-8.2); eGFR > 60.00
== END ==
LOC: OLABP 12:51
PROVIDERS: ATTENDING PHYSICIAN Family Medicine
DX: I50.33 Acute on chronic diastolic (congestive) heart failure (principal); I48.4 Atypical atrial flutter; E10.9 Type 1 diabetes mellitus without complications; D50.9 Iron deficiency anemia, unspecified; I10 Essential (primary) hypertension; J90 Pleural effusion, not elsewhere classified; M62.59 Muscle wasting and atrophy, not elsewhere classified, multiple sites; I31.39 Other pericardial effusion (noninflammatory); E83.42 Hypomagnesemia; J96.91 Respiratory failure, unspecified with hypoxia
CPT/HCPCS: 36415; 80053; 83735; 85025

== ENCOUNTER → 2024-06-26 16:07 | Outpatient (REF) | payer MEDICARE, SELFPAY | LOC: HWRCS 16:07 | PROVIDERS: ATTENDING PHYSICIAN Internal Medicine Cardiovascular Disease | DX: I31.39 Other pericardial effusion (noninflammatory) (principal); I50.32 Chronic diastolic (congestive) heart failure | CPT/HCPCS: 93308 ==

== ENCOUNTER → 2024-07-26 08:02 | Outpatient (REF) | payer MEDICARE, SELFPAY | LOC: RCS 08:02 | PROVIDERS: ATTENDING PHYSICIAN Physician Assistant; FAMILY PHYSICIAN Internal Medicine Endocrinology, Diabetes & Metabolism | DX: I31.39 Other pericardial effusion (noninflammatory) (principal); I50.30 Unspecified diastolic (congestive) heart failure | CPT/HCPCS: 93308 ==

== ENCOUNTER → 2024-07-29 14:03 | Outpatient (REF) | payer MEDICARE, SELFPAY | LOC: HWRAD 14:03 | PROVIDERS: ATTENDING PHYSICIAN Internal Medicine Cardiovascular Disease; FAMILY PHYSICIAN Internal Medicine Endocrinology, Diabetes & Metabolism | DX: J90 Pleural effusion, not elsewhere classified (principal) | CPT/HCPCS: 71046 ==

== ENCOUNTER → 2024-09-20 07:04 | Outpatient (REF) | payer MEDICARE, SELFPAY | LOC: HWRCS 07:04 | PROVIDERS: ATTENDING PHYSICIAN Internal Medicine Cardiovascular Disease | DX: I31.39 Other pericardial effusion (noninflammatory) (principal) | CPT/HCPCS: 93306 ==

== ENCOUNTER 2024-10-11 05:44 | Inpatient (IN) | payer MEDICARE, SELFPAY ==
--- NOTE | 2024-09-02 09:21 | CM ---
Addendum entered by Giselle Curry RN 09/24/24 11:53:
CM received call from patient stating that he will have limited assistance post operatively. Patient stated that his son would not be available for assistance post operatively. Patient stated that his friend will provide transportation home after
surgery, but will not be able to stay with patient. Patient's sister is visiting, but will be available on Monday only.
CM advised that if patient does not have any assistance; then he can private pay for a RESTAURANT AREA DIRECTOR and respite in a SNF. Patient stated that he could not afford that and will try to see if his family/friends could be available.
Original Note:
Cm reviewed medical records. Patient lives independently alone. Patient does have a history of [facility], but is currently not on service. Patient has been to [facility]. Patient stated that he would prefer NOT to go to SNF and feels that he has enough
support at home with family and friends. Patient would be agreeable to [facility] on discharge. Patient has a walker from his previous knee replacement. Patient is active with his PCP. Patient uses [facility] for medication services.
Patient has picked out [facility] for PT services outpatient.
Patient's friend and his son will provide support and supervision.
PLAN: Home with [facility], transition to outpatient when discharged by [facility].
[2024-09-27 11:24] LABS: Hematocrit 39.5 % (39.0-52.0); Hemoglobin 13.0 g/dL (13.0-18.0); Mean Corp Hgb Conc. 32.9 g/dL (33.0-37.0); Mean Corpuscular Volume 82.5 fL (80.0-94.0); Platelet Count 262 10^3/uL (130-400); Red Cell Dist. Width 17.9 % (11.5-14.5)
[2024-09-27 11:33] LABS: ALT (SGPT) 18 U/L (0-50); AST (SGOT) 21 U/L (17-59); Albumin 3.9 g/dl (3.5-5.0); Alkaline Phosphatase 105 U/L (38-126); Blood Urea Nitrogen 14 mg/dl (9-20); Calcium 9.5 mg/dl (8.4-10.2); Carbon Dioxide 31 mmol/L (22-30); Chloride 101 mmol/L (98-107); Glucose 112 mg/dl (70-99); Potassium 4.1 mmol/L (3.5-5.1); Sodium 141 mmol/L (135-145); Total Protein 6.8 g/dl (6.3-8.2); eGFR > 60.00
[2024-09-27 11:46] LABS: Glycohemoglobin (HgbA1c) 6.3 % (4.0-5.6)
[2024-09-27 14:31] VITALS: BMI 40.5
[2024-09-27 18:24] VITALS: BMI 40.5
[2024-10-11] VITALS (18 sets, daily range): BP systolic 92–154; BP diastolic 46–104; BMI 40.5
[2024-10-11 06:24] LABS: Glucose - Point of Care 185 mg/dl (70-99)
[2024-10-11] MEDS: NORMOSOL-R/PLASMALYTE-A 1000 IV ×2 (06:33→14:31)
[2024-10-11 09:02] LABS: Glucose - Point of Care 170 mg/dl (70-99)
--- NOTE | 2024-10-11 09:27 | W.PN.UPDATE ---
Update Note
Progress Note Update
R knee OA s/p R TKA w/ Dr Booth 10/11/24
- s/p L TKA, 05/2024, by Dr Booth
- Given limited support, would benefit from VN and home PT initially upon d/c
DVT prophylaxis - ASA, b/l venous foot pumps
HTN - + parameters - monitor BP
A fib - monitor rhythm on tele
- Continue BB
- No current OAC d/t previous Watchman
HFpEF
Pericardial effusion resolved on recent echo 09/2024
- Reduce IVF to prevent fluid overload
- Low sodium diet
- Resume Lasix but w/ SBP parameters to minimize post-surgical hypotension
- Monitor daily weight, I&Os
Obstructive sleep apnea, CPAP compliant, setting 14 - monitor O2
- IS
- Continue CPAP HS
Type 1 insulin-dependent diabetes with indwelling insulin pump, A1c 6.3 - consult diabetic BRIDGE REPAIRER for insulin pump management
- Diabetic, carb controlled diet
- Would benefit from Cefadroxil upon d/c
GERD, GI bleed on previous Xarelto - continue daily Protonix
- NO NSAIDS post-op
Iron deficiency anemia, pre-op hgb stable - non-invasive hgb in AM
- Continue PO iron
HLD
Colon cancer 2023, resected, stage IIA.
Hypothyroidism
Anxiety
Depression
Morbid obesity, BMI 40.4
D/c Rxs sent to pharmacy pre-op. D/c medication list and instructions completed. Pt will need d/c summary dictated upon date of d/c
[2024-10-11] MEDS: TYLENOL 650 MG PO ×3 (11:11→19:34)
[2024-10-11] MEDS: ULTRAM 50 MG PO ×2 (11:11→21:18)
[2024-10-11] MEDS: SUBLIMAZE 50 MCG IV (12:56)
[2024-10-11] MEDS: PT'S OWN INSULIN PUMP - HumaLOG 3.5 UNIT SC (14:00)
[2024-10-11] MEDS: XANAX PO (14:31)
[2024-10-11 14:36] LABS: Glucose - Point of Care 238 mg/dl (70-99)
--- NOTE | 2024-10-11 14:40 | PTCARENOTE ---
Pt received from the PACU via bed. Transport was w/o incident. Pt is AAOX3, VSS, Pt is afebrile. Pt denies nausea and reports pain as mild. Pt's right knee with Antibacterial dressing intact w/ moderate shadowing noted, will watch closely, and
notify provider if warranted. Pt instructed on plan of care. Pt verbalized understanding of instructions.
--- NOTE | 2024-10-11 14:58 | PN.DE.MGMTRT ---
Insulin Management
- -
10/11/2024 Diabetes Management Consult
Patient admitted today for R TKA. H morbid obesity, osteoarth, afib w/watchman, HFpEF, HTN, HLD, colon ca 2023. Prior to admission was using the OmniPod 5 with DexCom G7 with humalog. A1C 6.3%.
Patient is awake alert and oriented, able to discuss diabetes care. He follows with endocrine in [place].States: I have had diabetes 54 years there is NOTHING you can tell me. I agree!. Requested to see pump settings, he states it is automated.
Although pump is automated it does have pump settings that the pump and sensor use to determine whether more or less insulin is required. He does not count carbs, decides how much insulin he needs by eyeballing his plate.
Basal settings
12am 2.25
5am 2.75
3pm 2.5
7pm 3.75
24 hour total basal insulin 67.5
Discussed with nurse
I explained pump worksheet, he is agreeable.
Will follow
Diabetes History
- -
Type of Diabetes: 1
Pre-Admission Diabetes Regimen
Lab Results
Hemoglobin A1c 6.3 % (4.0-5.6) H 09/27/24 09:30
Insulin Pump Settings
IP Diabetes Regimen
10/11/24 10/11/24 10/11/24
06:22 09:01 14:34
POC Glucose 185 H 170 H 238 H
Patient Education
[2024-10-11] MEDS: ANCEF 5 IV ×2 (15:34→21:19)
[2024-10-11] MEDS: LIDOCAINE 4% PATCH 2 PATCH TOPICAL (15:35)
[2024-10-11] MEDS: LASIX 40 MG PO (15:36)
--- NOTE | 2024-10-11 17:59 | W.PN.UPDATE ---
Update Note
Progress Note Update
Patient doing well s/p R TKR. VSS. Sitting OOB and in a chair. Pulm: nonlabored. CV: regular. RLExt: Dressing CDI. Calf soft. Postop xray as expected. ASA for DVT prophylaxis. Plan for discharge home tomorrow with PT on Monday.
[2024-10-11] MEDS: PT'S OWN INSULIN PUMP - HumaLOG 6.1 UNIT SC (18:08)
[2024-10-11] MEDS: ASPIRIN 325 MG PO (18:09)
[2024-10-11] MEDS: XANAX 1 MG PO (19:33)
[2024-10-11] MEDS: NEURONTIN 300 MG PO (19:33)
[2024-10-11] MEDS: OLOPATADINE 0.1% OPHTHALMIC SOLUTION 1 DROP OPHTH (19:34)
[2024-10-11] MEDS: SENOKOT 17.2 MG PO (19:34)
[2024-10-11] MEDS: COREG 25 MG PO (19:34)
[2024-10-11] MEDS: COLACE 100 MG PO (19:34)
[2024-10-11] MEDS: DILAUDID 0.5 MG IV (19:35)
[2024-10-11] MEDS: REMOVE LIDOCAINE PATCH 2 PATCH REMOVE (19:43)
[2024-10-11] MEDS: BACTROBAN 2% OINTMENT 1 APPLIC NASAL (21:16)
[2024-10-11] MEDS: MILK OF MAGNESIA 30 ML PO (21:18)
[2024-10-11] MEDS: PT'S OWN INSULIN PUMP - HumaLOG 5 UNIT SC ×2 (21:21→21:25)
[2024-10-11 21:23] LABS: Glucose - Point of Care 268 mg/dl (70-99)
[2024-10-12] MEDS: TYLENOL PO (01:27)
[2024-10-12] MEDS: ULTRAM 50 MG PO ×2 (02:33→07:45)
[2024-10-12] MEDS: TYLENOL 650 MG PO ×3 (02:34→11:58)
[2024-10-12 03:10] VITALS: BP 116/70
[2024-10-12] MEDS: SYNTHROID 137 MCG PO (05:23)
[2024-10-12 07:06] LABS: Glucose - Point of Care 209 mg/dl (70-99)
[2024-10-12 07:10] VITALS: BP 146/83
--- NOTE | 2024-10-12 07:23 | W.PN.ORTHO ---
Today's Communication / Plan
-
Plan for discharge home today with Home PT/VN
Assessment
.
Distal Motor Intact: Yes
Dressing:
Dressing with bloody drainage as expected. Dressing changed
Assessment:
Doing well S/P R TKR
Plan
.
Surgery / Date: 10/11/2024 RTKR Leobardo
DVT Prophylaxis: Aspirin
Activity:
Out of bed.
PT/OT
Discharge Plan: Home w/ VN
Subjective
.
.:
Patient resting comfortably.
OOB and in chair
Vital Signs and Labs
.
Vital Signs and Labs:
Lab Results
09/27/24 09:30
09/27/24 09:30
Temp Pulse Resp BP Pulse Ox
98.0 F 87 19 116/70 98
10/12/24 03:10 10/12/24 03:10 10/12/24 03:10 10/12/24 03:10 10/12/24 03:10
Physical Exam
-
Pulm: nonlabored
CV: regjular
RLE: Calf soft. ROM 0-80 degrees. NVI distally
[2024-10-12] MEDS: XANAX 1 MG PO (07:31)
[2024-10-12] MEDS: VITAMIN D3 (cholecalciferol) 25 MCG PO (07:31)
[2024-10-12] MEDS: PROTONIX 40 MG PO (07:31)
[2024-10-12] MEDS: ZYRTEC 10 MG PO (07:31)
[2024-10-12] MEDS: LIPITOR 40 MG PO (07:31)
[2024-10-12] MEDS: SENOKOT 17.2 MG PO (07:31)
[2024-10-12] MEDS: COLACE 100 MG PO (07:31)
[2024-10-12] MEDS: ASPIRIN 325 MG PO (07:31)
[2024-10-12] MEDS: LEXAPRO 10 MG PO (07:32)
[2024-10-12] MEDS: BACTROBAN 2% OINTMENT 1 APPLIC NASAL (07:33)
[2024-10-12] MEDS: LASIX 40 MG PO (07:34)
[2024-10-12] MEDS: NEURONTIN 300 MG PO (07:34)
[2024-10-12] MEDS: LIDOCAINE 4% PATCH 2 PATCH TOPICAL (07:35)
[2024-10-12] MEDS: COREG 25 MG PO (07:35)
[2024-10-12] MEDS: PT'S OWN INSULIN PUMP - HumaLOG 3.2 UNIT SC (07:36)
[2024-10-12] MEDS: OLOPATADINE 0.1% OPHTHALMIC SOLUTION 1 DROP OPHTH (07:36)
--- NOTE | 2024-10-12 08:31 | W.DS.TRANS ---
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
-
Discharge Instructions:
Discharge Diagnosis/Procedures R knee OA s/p R TKA w/ Dr Booth 10/11/24
Diet Diabetic, Carb Controlled
Additional Diets Adequate hydration, minimize opioids, and wear
TEDs stockings to prevent low blood pressure/
dizziness.
Activity With Walker,As tolerated
Driving Restrictions Not until seen by your Dr
Bathing Restrictions OK to Shower
Other Services PT,VN
Wound Care Dressing to be removed 1 week post-surgery.
Pamela to be removed at 2 week follow-up with
surgeon's office.
Specialty Instructions Weigh Daily
Instructions:
Stand-Alone Forms: Total Hip/Knee Replacement D/C
Changes to Home Medications: No
Discharge Medications:
DC Medications w/original date entered in [employer]
tadalafil 20 mg tablet (Cialis) 5 mg PO DAILYPRN PRN Erectile dysfunction 03/24/17
pantoprazole 40 mg tablet,delayed release (Protonix) 40 mg PO DAILY Gastrointestinal Issue 07/06/23
carvedilol 25 mg tablet 25 mg PO BID Blood Pressure 07/24/23
cholecalciferol (vitamin D3) 25 mcg (1,000 unit) tablet (Vitamin D3) 25 mcg PO DAILY Supplement 07/24/23
levothyroxine 137 mcg tablet 137 mcg PO DAILY Thyroid 07/24/23
azelastine 0.05 % eye drops 1 drp BOTH EYES BID Eye Condition 04/23/24
semaglutide 2 mg/dose (8 mg/3 mL) subcutaneous pen injector (Ozempic) 2 mg SC BARBER WEIGHT LOSS 04/23/24
gabapentin 300 mg capsule 300 mg PO BID Pain 05/10/24
Patient's Own Insulin Pump 1 dose SC .CONTINUOUS Diabetes 06/12/24
atorvastatin 40 mg tablet 40 mg PO DAILY High Cholesterol 06/12/24
escitalopram oxalate 10 mg tablet 10 mg PO DAILY Mental Health/Anxiety 06/12/24
fluticasone propionate 50 mcg/actuation nasal spray,suspension 2 spray intranasal DAILY Allergies 06/12/24
therapeutic multivitamin 1 tab PO DAILY Supplement 06/12/24
Humalog U-100 Insulin 1 unit SC .INSULIN PUMP Diabetes 09/25/24
cetirizine 10 mg tablet (Zyrtec) 10 mg PO DAILY Allergies 09/25/24
ferrous sulfate 325 mg (65 mg iron) tablet 325 mg PO MOWEFR Supplement 09/25/24
mupirocin 2 % topical ointment 1 applic topical BID infection prevention #1 tube 09/27/24
ondansetron 4 mg disintegrating tablet 4 mg PO Q6H PRN n/v #20 tabs 09/27/24
tramadol 50 mg tablet 50 mg PO Q6H PRN 1 tab moderate pain, 2 if severe #30 tabs 09/27/24
cefadroxil 500 mg capsule 500 mg PO BID infection prevention #14 caps 09/29/24
Saccharomyces boulardii 250 mg capsule (Florastor) 250 mg PO BID #14 caps 10/11/24
acetaminophen 500 mg tablet 1,000 mg (2 x 500 mg) PO Q6H #60 tabs 10/11/24
alprazolam 1 mg tablet 1 mg PO BID Mental Health/Anxiety #1 tab 10/11/24
aspirin 325 mg tablet 325 mg PO DAILY #30 tabs 10/11/24
docusate sodium 100 mg capsule 100 mg PO BID #30 caps 10/11/24
furosemide 40 mg tablet 40 mg PO BID AT 0800,1600 #60 tabs 10/11/24
lidocaine 4 % topical patch 2 patch topical DAILY #30 ea 10/11/24
magnesium hydroxide 400 mg/5 mL oral suspension (Milk of Magnesia) 30 ml PO HS #3,780 mL 10/11/24
sennosides 8.6 mg tablet (Norma-rocío) 17.2 mg (2 x 8.6 mg) PO BID #30 tabs 10/11/24
Home Medication Changes
Pending Results: No
--- NOTE | 2024-10-12 09:08 | CM ---
CM sent referral to [facility] via [facility] for VN.
[2024-10-12 10:00] VITALS: O2SAT 97
[2024-10-12 11:10] VITALS: BP 113/71
[2024-10-12 11:54] VITALS: BP 136/66; PULSE 83; O2SAT 99
[2024-10-12 11:56] LABS: Glucose - Point of Care 160 mg/dl (70-99)
== END 2024-10-12 13:24 | disposition home health service (06) | DRG 470 ==
LOC: 2 SOUTH 05:44
PROVIDERS: ADMITTING PHYSICIAN Orthopaedic Surgery; FAMILY PHYSICIAN Internal Medicine Endocrinology, Diabetes & Metabolism; REFERRING PHYSICIAN Internal Medicine Cardiovascular Disease
PROC: 0SRC0J9 Replacement of Right Knee Joint with Synthetic Substitute, Cemented, Open Approach (ICD-10-PCS; 2024-10-11)
DX: M17.11 Unilateral primary osteoarthritis, right knee (principal); I50.32 Chronic diastolic (congestive) heart failure; Z68.41 Body mass index [BMI] 40.0-44.9, adult; I48.91 Unspecified atrial fibrillation; I11.0 Hypertensive heart disease with heart failure; E03.9 Hypothyroidism, unspecified; F41.9 Anxiety disorder, unspecified; E10.9 Type 1 diabetes mellitus without complications; E78.00 Pure hypercholesterolemia, unspecified; G47.33 Obstructive sleep apnea (adult) (pediatric); E66.01 Morbid (severe) obesity due to excess calories; D50.9 Iron deficiency anemia, unspecified; F32.A Depression, unspecified; K21.9 Gastro-esophageal reflux disease without esophagitis; I27.20 Pulmonary hypertension, unspecified; Z96.652 Presence of left artificial knee joint; Z95.818 Presence of other cardiac implants and grafts; Z85.038 Personal history of other malignant neoplasm of large intestine; Z88.8 Allergy status to other drugs, medicaments and biological substances; Z79.82 Long term (current) use of aspirin; Z79.4 Long term (current) use of insulin; Z79.85 Long-term (current) use of injectable non-insulin antidiabetic drugs; Z79.890 Hormone replacement therapy; Z79.899 Other long term (current) drug therapy
CPT/HCPCS: 36415; 73560; 80053; 82962; 83036; 85027; 87070; 94660; 97116; 97162; 97166; 97535; C1713; C1776